=== PATIENT | female | born 1945 | race Caucasian/White ===

== ENCOUNTER 2020-06-30 12:42 | Inpatient (IN) ==
[2020-06-30] MEDS ORDERED: AMPICILLIN/SULBACTAM SOD 3,000 MG in 0.9 % SODIUM CHLORIDE 100 ML IV STA (13:21)
[2020-06-30] MEDS ORDERED: MoRPHine SULFATE 4 MG/ML 1 ML CARP\\VIAL IV PRN (13:21)
[2020-06-30] MEDS ORDERED: ONDANSETRON INJ 2 MG/ML 2 ML VIAL IV STA (13:21)
[2020-06-30] MEDS ORDERED: SODIUM CHLORIDE 0.9% 1000ML 1,000 ML IV STA (13:21)
--- NOTE | 2020-06-30 13:37 | Emergency Department Note ---
Impression & Plan Quentin's angina, Acute hyponatremia ED Provider Note NAME: MARIANA SIMMONS AGE: 75 SEX: F : 1945 ARRIVES VIA: Walk-In INFORMANT: Patient, ED PROVIDER(S): Matt Curry DO CHIEF COMPLAINT: Dental pain HPI: The patient is a 75-year-old female who presented to the emergency department for an evaluation of dental pain. The patient noticed for approximately 5 days she had swelling underneath her chin. She initially thought it was dental infection although she notices no specific dental pain. She has trouble opening her mouth. She notices no fever. She has had no nausea or vomiting. She denies having any trauma. She did start on Augmentin as an outpatient which was left over from a previous prescription. She denies having any abdominal pain. She has no headache. She states the pain is moderate to severe especially with trying to open her mouth. She was seen at a clinic and was sent to the emergency department for further evaluation. ROS: See above HPI for pertinent positives & negatives. A total of 10 systems reviewed and were otherwise negative. PAST MEDICAL HISTORY: See Below PAST SURGICAL HISTORY: See Below FAMILY HISTORY: See Below SOCIAL HISTORY: See Below HOME MEDICATIONS: See Below ALLERGIES: See Below VITALS: See Below PHYSICAL EXAMINATION: GENERAL: The patient is awake and alert. The patient is somewhat anxious appearing and appears to be uncomfortable. EYES: The conjunctivae are clear. The pupils are round and reactive. EARS, NOSE, MOUTH AND THROAT: The nose is without any evidence of any deformity. Mucous membranes are dry. Dentition is intact. There is no specific gumline swelling or tenderness. There is tenderness on the floor the mouth under the tongue but the tongue is not protruding. There is significant swelling on the underside of the mandible. The floor of the mouth is indurated. NECK: The neck is nontender and supple. RESPIRATORY: Normal respiratory effort is noted there is no evidence of wheezing rhonchi or rales CARDIOVASCULAR: Regular rate and rhythm noted there no murmurs rubs or gallops normal S1 normal S2. GASTROINTESTINAL: The abdomen is soft. Abdomen is nontender. MUSCULOSKELETAL/EXTREMITIES: There is no evidence of gross deformity full range of motion is noted in the hips and shoulders. SKIN: There is no obvious evidence of any rash. There are no petechiae, pallor or cyanosis noted. NEUROLOGIC: Patient is awake alert and oriented x3. MEDICAL DECISION MAKING: The patient is a 75-year-old female who presented to the emergency department for an evaluation of facial swelling. The patient is swelling in her submandibular region. She was treated with IV fluids IV pain medication as well as IV antibiotics. I discussed the patient's laboratory and radiographic garett dies with her. Ultimately she was found no signs of Quentin's angina on physical exam as well as radiographic studies. I discussed her presentation with the oral maxillofacial surgeon. I also discussed her case with the on-call [facility]. They have agreed to evaluate the patient. There does not appear to be a drainable fluid collection at this time and the patient may do well with just IV antibiotics. She would likely require close monitoring. Triage Nursing notes reviewed. Prior medical records reviewed Vital Signs: reviewed and remarkable for elevated blood pressure Differential diagnosis: Differential diagnosis in this patient could include Ludewig's angina, cellulitis, abscessed tooth, foreign body, developmental abnormality such as thyroglossal duct cyst and other differential diagnoses were considered. ER treatment provided: See below Diagnostics interpreted by me: ECG: none Cardiac Monitoring: An order was placed for continuous cardiac monitoring. The monitor shows a rate of 89 bpm with sinus rhythm. Laboratory studies: As stated above and show below. Imaging studies: See below Consultation(s): 1540: I discussed this case with Dr. Li who is on-call for the [facility] group. He will evaluate the patient in the emergency department. ED COURSE: Procedures: none PDMP:reviewed and no issues Critical Care: I have personally spent greater than 40 minutes of critical care time in the direct management of this patient. This includes bedside care, interpretation of diagnostic studies, and testing, discussion with consultants, patient, and family members, and other required patient management activities. This 40 minutes is in excess of all separately billable procedures. Past Med/Surg History Medical History (Updated 06/30/20 @ 17:19 by Matt Curry DO) Coronary artery disease Depression History of high cholesterol History of hypertension Surgical History History of cholecystectomy History of coronary artery bypass graft History of total hysterectomy Social History (Updated 06/30/20 @ 13:33 by Matt Curry DO) Smoking Status: Current every day smoker Hx Alcohol Use: Yes Preferred Language: Yoruba Feels Safe at Home: Yes Allergies Allergies Allergy/AdvReac Type Severity Reaction Status Date / Time No Known Allergies Allergy Unverified 06/30/20 16:44 Home Meds Home Medications Medication Instructions Recorded Confirmed atorvastatin 80 mg PO DAILY 06/30/20 06/30/20 ezetimibe 10 mg PO DAILY 06/30/20 06/30/20 fluoxetine 40 mg PO DAILY 06/30/20 06/30/20 gabapentin 100 - 200 mg PO HS 06/30/20 06/30/20 hydrochlorothiazide 12.5 mg PO DAILY 06/30/20 06/30/20 isosorbide mononitrate 30 mg PO DAILY 06/30/20 06/30/20 latanoprost 1 drp OPL DAILY 06/30/20 06/30/20 losartan 50 mg PO DAILY 06/30/20 06/30/20 meloxicam 15 mg PO HS 06/30/20 06/30/20 pantoprazole 40 mg PO DAILY 06/30/20 06/30/20 tizanidine 4 mg PO HS 06/30/20 06/30/20 trazodone 50 mg PO HS 06/30/20 06/30/20 vit C,S-Zw-llcgw-lutein-zeaxan 1 tab PO AMHS 06/30/20 06/30/20 [PreserVision AREDS-2] Results & Data (ED) Vital Signs Vital Signs - 24 hr 06/30/20 13:04 06/30/20 16:17 Temperature 36.5 C Temperature Source Temporal Artery Scan Pulse Rate 94 H Pulse Rate [Left] 84 Pulse Rhythm [Left] Regular Pulse Strength [Left] Normal Respiratory Rate 18 16 Respiratory Effort / Characteristics Nasal Congestion Respiratory Depth Normal Blood Pressure 136/70 Blood Pressure [Left Arm] 146/68 H Blood Pressure Mean 92 Blood Pressure Mean [Left Arm] 94 Blood Pressure Position [Left Arm] Lying Pulse Oximetry 95 96 Oxygen Delivery Method Room Air Room Air Sepsis Recent Fever Within 48 Hours No Sepsis New/Unexplained Change in Mental Status N/A Sepsis Action Taken by Nursing No Action Required Home Medications Current Medication List: was personally reviewed by me Laboratory Data Attestation: I reviewed the patient's lab results. Result diagrams: 06/30/20 13:32 06/30/20 13:32 Lab Results 06/30/20 06/30/20 06/30/20 Range/Units 13:32 13:32 13:32 WBC 20.98 H (4.8-10.8) K/uL RBC 4.01 L (4.2-5.4) M/uL Hgb 12.8 (12.0-16.0) g/dL Hct 36.5 L (37-47) % MCV 91.0 (80-100) fL MCH 31.9 (25-34) pg MCHC 35.1 (32-36) g/dL RDW Std Deviation 43.7 (36.4-46.3) fL RDW Coeff of Aster 13.1 (11.5-14.5) % Plt Count 280 (130-400) K/uL MPV 9.7 (7.4-10.4) fL Immature Gran % (Auto) 0.3 % Neut % (Auto) 87.2 % Lymph % (Auto) 4.0 % Desha % (Auto) 8.3 % Eos % (Auto) 0.1 % Baso % (Auto) 0.1 % Neut # (Auto) 18.29 H (1.4-6.5) K/uL Lymph # (Auto) 0.84 L (1.2-3.4) K/uL Desha # (Auto) 1.75 H (0.11-0.59) K/uL Eos # (Auto) 0.02 (0-0.5) K/uL Baso # (Auto) 0.02 (0-0.2) K/uL Immature Gran # (Auto) 0.06 H (0.00-0.02) K/uL ESR 77 H (0-30) mm/hr Sodium 126 L (136-145) mmol/L Potassium 3.2 L (3.5-5.1) mmol/L Chloride 95 L (98-107) mmol/L Carbon Dioxide 24 (21-32) mmol/L Anion Gap 7.0 (3-11) BUN 15 (7-18) mg/dl Creatinine 0.87 (0.6-1.2) mg/dl Est Cr Clr Drug Dosing 44.2 ml/min Est GFR ( Amer) 75.5 ml/min Est GFR (Non-Af Amer) 65.2 ml/min BUN/Creatinine Ratio 16.8 (10-20) Glucose 107 H (70-99) mg/dl Calcium 8.3 L (8.5-10.1) mg/dl Total Bilirubin 0.5 (0.2-1) mg/dl AST 22 (15-37) U/L ALT 19 (12-78) U/L Alkaline Phosphatase 143 H (45-117) U/L C-Reactive Protein 21.50 H (0-0.29) mg/dl Total Protein 7.4 (6.4-8.2) gm/dl Albumin 3.2 L (3.4-5.0) gm/dl Globulin 4.2 H (2.5-4.0) gm/dl Albumin/Globulin Ratio 0.8 L (0.9-2) Procalcitonin (0-0.5) ng/ml COVID-19 Eval Order SARS-CoV-2 (PCR) (Negative) 06/30/20 06/30/20 06/30/20 Range/Units 13:32 13:35 13:35 WBC (4.8-10.8) K/uL RBC (4.2-5.4) M/uL Hgb (12.0-16.0) g/dL Hct (37-47) % MCV (80-100) fL MCH (25-34) pg MCHC (32-36) g/dL RDW Std Deviation (36.4-46.3) fL RDW Coeff of Aster (11.5-14.5) % Plt Count (130-400) K/uL MPV (7.4-10.4) fL Immature Gran % (Auto) % Neut % (Auto) % Lymph % (Auto) % Desha % (Auto) % Eos % (Auto) % Baso % (Auto) % Neut # (Auto) (1.4-6.5) K/uL Lymph # (Auto) (1.2-3.4) K/uL Desha # (Auto) (0.11-0.59) K/uL Eos # (Auto) (0-0.5) K/uL Baso # (Auto) (0-0.2) K/uL Immature Gran # (Auto) (0.00-0.02) K/uL ESR (0-30) mm/hr Sodium (136-145) mmol/L Potassium (3.5-5.1) mmol/L Chloride (98-107) mmol/L Carbon Dioxide (21-32) mmol/L Anion Gap (3-11) BUN (7-18) mg/dl Creatinine (0.6-1.2) mg/dl Est Cr Clr Drug Dosing ml/min Est GFR ( Amer) ml/min Est GFR (Non-Af Amer) ml/min BUN/Creatinine Ratio (10-20) Glucose (70-99) mg/dl Calcium (8.5-10.1) mg/dl Total Bilirubin (0.2-1) mg/dl AST (15-37) U/L ALT (12-78) U/L Alkaline Phosphatase (45-117) U/L C-Reactive Protein (0-0.29) mg/dl Total Protein (6.4-8.2) gm/dl Albumin (3.4-5.0) gm/dl Globulin (2.5-4.0) gm/dl Albumin/Globulin Ratio (0.9-2) Procalcitonin 0.32 (0-0.5) ng/ml COVID-19 Eval Order Covid19 at [facility] SARS-CoV-2 (PCR) NEGATIVE (Negative) Administered Medications Sodium Chloride (Nss 1000ml) 1,000 mls @ 125 mls/hr IV .Q8H STA Stop: 06/30/20 21:20 Last Admin: 06/30/20 13:43 Dose: 125 mls/hr Documented by: [id number] Morphine Sulfate (Morphine Sulfate 4 Mg/Ml 1 Ml Carp\Vial) 4 mg IV Q15M PRN PRN Reason: Pain Stop: 07/14/20 13:20 Last Admin: 06/30/20 13:45 Dose: 4 mg Documented by: [id number] Discontinued Medications Al Hydrox/Mg Hydrox/Simethicone (Aluminum/Magnesium Susp 30 Ml Udc) 30 ml PO NOW STA Stop: 06/30/20 16:07 Last Admin: 06/30/20 16:28 Dose: 30 ml Documented by: [id number] Ampicillin Sodium/Sulbactam Sodium 3,000 mg/ Sodium Chloride 108 mls @ 200 mls/hr IV NOW STA; Protocol Stop: 06/30/20 13:53 Last Infusion: 06/30/20 14:28 Dose: 0 mls/hr Documented by: [id number] Admin: 06/30/20 13:45 Dose: 200 mls/hr Documented by: [id number] Famotidine (Pepcid 20mg Iv Push) 20 mg in 5 mls @ 2.5 mls/min IV NOW STA Stop: 06/30/20 16:07 Last Admin: 06/30/20 16:28 Dose: 2.5 mls/min Documented by: [id number] Ioversol (Optiray 320 100ml) 90 ml IV ONCE ONE Stop: 06/30/20 14:51 Last Admin: 06/30/20 14:50 Dose: 90 ml Documented by: [id number] Ondansetron HCl (Ondansetron Inj 2 Mg/Ml 2 Ml Vial) 4 mg IV NOW STA Stop: 06/30/20 13:22 Last Admin: 06/30/20 13:44 Dose: 4 mg Documented by: [id number] Imaging Data Radiologist's Impression: Soft Tissue Neck CT 06/30/20 13:21 CT SCAN OF THE NECK WITH IV CONTRAST CLINICAL HISTORY: Swelling at the floor of the mouth. Dysphagia. COMPARISON STUDY: No priors. TECHNIQUE: Following the IV administration of 90 cc of Optiray 320, CT scan of the soft tissues of the neck was performed from the skull base to the upper chest. Images are reviewed in the axial, sagittal, and coronal planes. IV contrast was administered without complication. A dose lowering technique was utilized adhering to the principles of ALARA. CT DOSE: 333.74 mGycm FINDINGS: Pharynx: There is marked edema and inflammation of the sublingual and submandibular soft tissues, right greater than left. There are dilated submandibular ducts with surrounding hyperemia versus multiloculated fluid collection(s) in the submandibular/sublingual space. This is located deep to the mandible and extends inferiorly to level of the hyoid. The submandibular glands also appear heterogeneous and hyperemic. The distal submandibular ducts are not visualized due to significant streak artifact from dental amalgam. The dilated ducts versus loculated fluid collection at this site measures approximately 4 x 5 x 3 cm in aggregate dimension. There is infiltration throughout the right para pharyngeal soft tissues, and this causes significant edema/mass effect on the floor of mouth with minimal mass effect on the anterior aspect of the adjacent airway. There is no significant airway compromise. There is no evidence of mass lesion. The vocal cords are symmetric. The left-sided parapharyngeal fat is maintained. The prevertebral/retropharyngeal soft tissues are within normal limits. The epiglottis is normal. Lymphadenopathy: Mildly enlarged and hyperemic right cervical chain lymph nodes measure up to 1.2 x 1.2 cm. These are likely reactive. Thyroid: The thyroid gland is enlarged and markedly heterogeneous. The left lobe extends into the posterior mediastinum. Low-attenuation nodules measure up to 1.9 cm. Salivary glands: The parotid glands are within normal limits. The submandibular glands appear heterogeneous and hyperemic. See above. Brain parenchyma: The visualized brain parenchyma at the skull base is normal in appearance. Vascular structures: There is advanced atherosclerotic calcification of the thoracic aorta. 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 The carotid arteries and jugular veins are patent. There is at least mild stenosis of the left internal carotid artery. Skeletal structures: The skeletal structures are osteopenic. Imaged portions of the calvarium at the skull base are within normal limits. The cervical spine appears intact noting multilevel spondylosis. Posterior fusion hardware is seen throughout the cervical spine. No lytic or blastic lesion is seen. Sinuses and mastoids: Trace mucosal thickening is noted in the sphenoid sinuses. The mastoid air cells are well pneumatized. Upper chest: The patient is status post midline sternotomy. Advanced emphysematous change is seen in the upper lobes. No airspace consolidation or pleural effusion is identified. IMPRESSION: 1. There is a marked inflammatory process involving the floor of the mouth, as well as the sublingual and submental soft tissues as detailed above. The degree of inflammation indicates infection, and Quentin's angina is the diagnosis of exclusion. 2. There are dilated submandibular ducts versus a multiloculated fluid collection in the submandibular/sublingual space. This could be related to obstruction of the submandibular ducts with associated sialoadenitis; however, the distal ducts cannot be evaluated due to extensive streak artifact from dental amalgam. The presence of an obstructing stone or lesion cannot be evaluated. ENT assessment and correlation with direct visualization is recommended. Alternatively, this could potentially represent an abscess or an infected ranula. 3. There are mildly enlarged and hyperemic right semitubular lymph nodes. 4. The jugular veins are patent. 5. Multinodular thyroid goiter. 6. Emphysema. 7. Additional findings as above. ACT 112: Negative or not required by law. Electronically signed by: Jagdish Pham M.D. 06/30/2020 3:13 PM Discharge Plan Visit Data Chief Complaint: Facial Injury/Pain Stated Complaint: FACIAL PAIN ED Provider: Matt Curry Discharge Problem: Quentin's angina, Acute hyponatremia Patient Disposition: Admitted As Inpatient Condition: Good Forms Stand Alone Forms: My [facility] Prescriptions Prescriptions: No Action losartan 50 mg Tablet 50 mg PO DAILY RF: 0 fluoxetine 40 mg Capsule 40 mg PO DAILY RF: 0 atorvastatin 80 mg Tablet 80 mg PO DAILY RF: 0 tizanidine 4 mg Tablet 4 mg PO HS RF: 0 isosorbide mononitrate 30 mg Tablet Extended Release 24 Hr 30 mg PO DAILY RF: 0 pantoprazole 40 mg Tablet,Delayed Release (Dr/Ec) 40 mg PO DAILY RF: 0 latanoprost 0.005 % Drops 1 drp OPL DAILY RF: 0 trazodone 50 mg Tablet 50 mg PO HS RF: 0 meloxicam 15 mg Tablet 15 mg PO HS RF: 0 hydrochlorothiazide 12.5 mg Capsule 12.5 mg PO DAILY RF: 0 gabapentin 100 mg Capsule 100 - 200 mg PO HS RF: 0 ezetimibe 10 mg Tablet 10 mg PO DAILY RF: 0 PreserVision AREDS-2 250-90-40-1 mg Capsule 1 tab PO AMHS RF: 0 Referrals Referrals: PCP,NO [Primary Care Provider] -
[2020-06-30 13:46] LABS: Basophils # (auto) 0.02 K/uL (0-0.2); Basophils % (auto) 0.1 %; Eosinophils # (auto) 0.02 K/uL (0-0.5); Eosinophils % (auto) 0.1 %; Hematocrit (blood only) 36.5 % (37-47); Hemoglobin 12.8 g/dL (12.0-16.0); Immature Granulocytes # (auto) 0.06 K/uL (0.00-0.02); Immature Granulocytes % (auto) 0.3 %; Lymphocytes # (auto) 0.84 K/uL (1.2-3.4); Mean Corpuscular Hemoglobin 31.9 pg (25-34); Mean Corpuscular Hgb Conc 35.1 g/dL (32-36); Mean Platelet Volume 9.7 fL (7.4-10.4); Monocytes # (auto) 1.75 K/uL (0.11-0.59); Monocytes % (auto) 8.3 %; Neutrophils # (auto) 18.29 K/uL (1.4-6.5); Neutrophils % (auto) 87.2 %; Platelet Count 280 K/uL (130-400); RDW Coefficient of Variation 13.1 % (11.5-14.5); RDW Standard Deviation 43.7 fL (36.4-46.3); Red Blood Count 4.01 M/uL (4.2-5.4); White Blood Count 20.98 K/uL (4.8-10.8)
[2020-06-30 14:07] LABS: Albumin Level 3.2 gm/dl (3.4-5.0); BUN Creatinine Ratio 16.8 (10-20); Calcium 8.3 mg/dl (8.5-10.1); Creatinine Clr Calc Pharmacy 44.2 ml/min; Est GFR (African American) 75.5 ml/min; Est GFR (Non-African American) 65.2 ml/min; Potassium 3.2 mmol/L (3.5-5.1)
[2020-06-30 14:14] LABS: Albumin Globulin Ratio 0.8 (0.9-2); Bilirubin,Total 0.5 mg/dl (0.2-1); C Reactive Protein 21.5 mg/dl (0-0.29); Globulin 4.2 gm/dl (2.5-4.0); Total Protein 7.4 gm/dl (6.4-8.2)
[2020-06-30] MEDS ORDERED: OPTIRAY 320 100ml IV ONE (14:50)
--- NOTE | 2020-06-30 15:15 | CT Scan Report ---
CT SCAN OF THE NECK WITH IV CONTRAST CLINICAL HISTORY: Swelling at the floor of the mouth. Dysphagia. COMPARISON STUDY: No priors. TECHNIQUE: Following the IV administration of 90 cc of Optiray 320, CT scan of the soft tissues of e neck was performed from the skull base to the upper chest. Images are reviewed in the axial, sagitt al, and coronal planes. IV contrast was administered without complication. A dose lowering techniqu e was utilized adhering to the principles of ALARA. CT DOSE: 333.74 mGycm FINDINGS: Pharynx: There is marked edema and inflammation of the sublingual and submandibular soft tissues, rig ht greater than left. There are dilated submandibular ducts with surrounding hyperemia versus multilo culated fluid collection(s) in the submandibular/sublingual space. This is located deep to the mandib le and extends inferiorly to level of the hyoid. The submandibular glands also appear heterogeneous a nd hyperemic. The distal submandibular ducts are not visualized due to significant streak artifact fr om dental amalgam. The dilated ducts versus loculated fluid collection at this site measures approxim ately 4 x 5 x 3 cm in aggregate dimension. There is infiltration throughout the right parapharyngeal soft tissues, and this causes significant edema/mass effect on the floor of mouth with minimal mass e ffect on the anterior aspect of the adjacent airway. There is no significant airway compromise. There is no evidence of mass lesion. The vocal cords are symmetric. The left-sided parapharyngeal fat is m aintained. The prevertebral/retropharyngeal soft tissues are within normal limits. The epiglottis is normal. Lymphadenopathy: Mildly enlarged and hyperemic right cervical chain lymph nodes measure up to 1.2 x 1 .2 cm. These are likely reactive. Thyroid: The thyroid gland is enlarged and markedly heterogeneous. The left lobe extends into the pos terior mediastinum. Low-attenuation nodules measure up to 1.9 cm. Salivary glands: The parotid glands are within normal limits. The submandibular glands appear heterog eneous and hyperemic. See above. Brain parenchyma: The visualized brain parenchyma at the skull base is normal in appearance. Vascular structures: There is advanced atherosclerotic calcification of the thoracic aorta. 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 The carotid arteries and jugular veins are pat ent. There is at least mild stenosis of the left internal carotid artery. Skeletal structures: The skeletal structures are osteopenic. Imaged portions of the calvarium at the skull base are within normal limits. The cervical spine appears intact noting multilevel spondylosis. Posterior fusion hardware is seen throughout the cervical spine. No lytic or blastic lesion is seen. Sinuses and mastoids: Trace mucosal thickening is noted in the sphenoid sinuses. The mastoid air cell s are well pneumatized. Upper chest: The patient is status post midline sternotomy. Advanced emphysematous change is seen in the upper lobes. No airspace consolidation or pleural effusion is identified. IMPRESSION: 1. There is a marked inflammatory process involving the floor of the mouth, as well as the sublingual and submental soft tissues as detailed above. The degree of inflammation indicates infection, and Jo dwig's angina is the diagnosis of exclusion. 2. There are dilated submandibular ducts versus a multiloculated fluid collection in the submandibula r/sublingual space. This could be related to obstruction of the submandibular ducts with associated s ialoadenitis; however, the distal ducts cannot be evaluated due to extensive streak artifact from den masood amalgam. The presence of an obstructing stone or lesion cannot be evaluated. ENT assessment and c orrelation with direct visualization is recommended. Alternatively, this could potentially represent an abscess or an infected ranula. 3. There are mildly enlarged and hyperemic right semitubular lymph nodes. 4. The jugular veins are patent. 5. Multinodular thyroid goiter. 6. Emphysema. 7. Additional findings as above. ACT 112: Negative or not required by law. Electronically signed by: Jagdish Pham M.D. 06/30/2020 3:13 PM
[2020-06-30] MEDS ORDERED: FAMOTIDINE 20MG IV PUSH 20 MG/5 ML SYR IV STA (16:06)
[2020-06-30] MEDS ORDERED: ALUMINUM/MAGNESIUM SUSP 30 ML UDC PO STA (16:06)
--- NOTE | 2020-06-30 16:09 | History & Physical Report ---
Date of Service June 30, 2020 Assessment & Plan (1) Facial swelling: CT reviewed, consider CL adenitis, facial cellulitis, or Pretty's angina Admit patient to a monitored bed Patient was given a dose of Unasyn in ER, will continue this for now Blood cultures Pain control with low-dose Dilaudid ER physician to speak to oral maxillofacial surgery, consider ENT consultation as well depending on their input Patient feels she may be able to handle clear liquids, will try this only for now. Gentle IV hydration (2) History of high cholesterol: Patient is on no medications, this is noted in her history. We will check fasting lipids (3) History of hypertension: Blood pressure 136/70, continue to monitor. Reevaluate once acute issues have resolved. History of Present Illness Chief Complaint: R face pain/swelling Primary Care Provider: NO PCP This is a 75-year-old female with past medical history of hypertension hypercholesterolemia that presents today complaining of right dental pain. Patient is pleasant but has some difficulty speaking secondary to her pain. Per records, patient has been having slowly worsening pain for the past 5 days. This is mostly in her right jaw with some radiation into her right cheek. She has had no fevers or chills and she has had no nausea vomiting. She has had some difficulty taking in solid food since it hurts to chew. She denies any trauma. Patient was seen at an outside clinic and recommended she come here for further evaluation. At the time my evaluation, patient appears to be in some discomfort, hurts worse when she is trying to open her mouth. She is able to answer questions. As she does have obvious facial swelling, especially on the right. Past Med/Surg History Medical History Coronary artery disease Depression History of high cholesterol History of hypertension Surgical History History of cholecystectomy History of coronary artery bypass graft History of total hysterectomy Social History (Updated 06/30/20 @ 13:33 by Matt Curry DO) Smoking Status: Current every day smoker Hx Alcohol Use: Yes Preferred Language: Niuean Feels Safe at Home: Yes Review of Systems Constitutional: no fever, no chills, no body aches and no fatigue Eyes: as per Subjective / HPI Ear, Nose, Mouth, Throat: + dental pain, + dental abscess and + dental caps; no loose teeth, no bleeding gums and no sore throat Respiratory: no cough, no chest congestion, no dyspnea, no dyspnea on exertion, no pain on inspiration, no pain with cough and no stopping breathing during sleep Cardiovascular: no chest pain, no chest pain at rest, no radiating jaw, neck or arm pain, no dyspnea, no dyspnea on exertion, no orthopnea, no palpitations and no lightheadedness Gastrointestinal: no abdominal pain, no nausea, no vomiting, no change in bowel habits, no constipation, no diarrhea/loose stools and no melena Genitourinary: no dysuria, no difficulty urinating, no urinary frequency, no urinary hesitancy and no urinary urgency Musculoskeletal: + neck pain; no back pain, no joint pain, no stiffness and no muscle weakness Integumentary: no rash and no lesions Neurologic: as per Subjective / HPI Psychiatric: as per Subjective / HPI Endocrine: as per Subjective / HPI Physical Exam Constitutional: cooperative; + uncomfortable (due to jaw pain) ENMT: Mouth: + restricted motion of mouth and + dentition abnormality; no drooling Respiratory: normal respiratory effort, lungs clear to auscultation Cardiovascular: RRR, no murmur, no edema Vessels: no JVD and no carotid bruit Gastrointestinal (Abdomen): normal bowel sounds, soft, nontender, no hepatosplenomegaly Musculoskeletal: no cyanosis or clubbing, extremities motor strength 5/5 Skin: no rashes, warm and dry Neurologic: PERRL, EOMI, accommodation nl, no face palsy, no dysarthria Results & Data Results & Data ([facility]) Vital Signs (Past 12 Hours) Vital Signs Temp Pulse Resp BP Pulse Ox 06/30/20 13:04 36.5 C 94 H 18 136/[address] SCAN OF THE NECK WITH IV CONTRAST CLINICAL HISTORY: Swelling at the floor of the mouth. Dysphagia. COMPARISON STUDY: No priors. TECHNIQUE: Following the IV administration of 90 cc of Optiray 320, CT scan of the soft tissues of the neck was performed from the skull base to the upper chest. Images are reviewed in the axial, sagittal, and coronal planes. IV contrast was administered without complication. A dose lowering technique was utilized adhering to the principles of ALARA. CT DOSE: 333.74 mGycm FINDINGS: Pharynx: There is marked edema and inflammation of the sublingual and submandibular soft tissues, right greater than left. There are dilated submandibular ducts with surrounding hyperemia versus multiloculated fluid collection(s) in the submandibular/sublingual space. This is located deep to the mandible and extends inferiorly to level of the hyoid. The submandibular glands also appear heterogeneous and hyperemic. The distal submandibular ducts are not visualized due to significant streak artifact from dental amalgam. The dilated ducts versus loculated fluid collection at this site measures approximately 4 x 5 x 3 cm in aggregate dimension. There is infiltration throughout the right parapharyngeal soft tissues, and this causes significant edema/mass effect on the floor of mouth with minimal mass effect on the anterior aspect of the adjacent airway. There is no significant airway compromise. There is no evidence of mass lesion. The vocal cords are symmetric. The left-sided parapharyngeal fat is maintained. The prevertebral/retropharyngeal soft tissues are within normal limits. The epiglottis is normal. Lymphadenopathy: Mildly enlarged and hyperemic right cervical chain lymph nodes measure up to 1.2 x 1.2 cm. These are likely reactive. Thyroid: The thyroid gland is enlarged and markedly heterogeneous. The left lobe extends into the posterior mediastinum. Low-attenuation nodules measure up to 1.9 cm. Salivary glands: The parotid glands are within normal limits. The submandibular glands appear heterogeneous and hyperemic. See above. Brain parenchyma: The visualized brain parenchyma at the skull base is normal in appearance. Vascular structures: There is advanced atherosclerotic calcification of the thoracic aorta. 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 The carotid arteries and jugular veins are patent. There is at least mild stenosis of the left internal carotid artery. Skeletal structures: The skeletal structures are osteopenic. Imaged portions of the calvarium at the skull base are within normal limits. The cervical spine appears intact noting multilevel spondylosis. Posterior fusion hardware is seen throughout the cervical spine. No lytic or blastic lesion is seen. Sinuses and mastoids: Trace mucosal thickening is noted in the sphenoid sinuses. The mastoid air cells are well pneumatized. Upper chest: The patient is status post midline sternotomy. Advanced emphysematous change is seen in the upper lobes. No airspace consolidation or pleural effusion is identified. IMPRESSION: 1. There is a marked inflammatory process involving the floor of the mouth, as well as the sublingual and submental soft tissues as detailed above. The degree of inflammation indicates infection, and Quentin's angina is the diagnosis of exclusion. 2. There are dilated submandibular ducts versus a multiloculated fluid collec tion in the submandibular/sublingual space. This could be related to obstruction of the submandibular ducts with associated sialoadenitis; however, the distal ducts cannot be evaluated due to extensive streak artifact from dental amalgam. The presence of an obstructing stone or lesion cannot be evaluated. ENT assessment and correlation with direct visualization is recommended. Alternatively, this could potentially represent an abscess or an infected ranula. 3. There are mildly enlarged and hyperemic right semitubular lymph nodes. 4. The jugular veins are patent. 5. Multinodular thyroid goiter. 6. Emphysema. 7. Additional findings as above. PG Care Time/CCT Total # of Minutes Spent Total Time Spent with Patient: Total time spent is greater than 50% in coordination of care (as documented) at patient's floor/unit and/or counseling patient: Coding Level of Care Code 53005 Initial Inpt Care Lvl 3 Diagnoses Facial swelling R22.0 History of high cholesterol Z86.39 History of hypertension Z86.79
[2020-06-30] MEDS ORDERED: ONDANSETRON INJ 2 MG/ML 2 ML VIAL IV PRN (19:09)
[2020-06-30] MEDS: HYDROmorphone INJ 0.5 MG/0.5 ML SYR IV PRN (19:36)
[2020-06-30] MEDS: SODIUM CHLORIDE 0.9% 1000ML 1,000 ML IV SCH (20:18)
[2020-06-30] MEDS: AMPICILLIN/SULBACTAM SOD 3,000 MG in 0.9 % SODIUM CHLORIDE 100 ML IV SCH (20:19)
[2020-06-30] MEDS: tiZANidine HCL 4 MG TABLET PO SCH (20:48)
[2020-06-30] MEDS: GABAPENTIN 100 MG CAP PO SCH (20:48)
[2020-06-30] MEDS: traZODone HCL 50 MG TAB PO SCH (20:48)
[2020-06-30] MEDS ORDERED: ENOXAPARIN INJ 40 MG/0.4 ML SYR SQ SCH (21:00)
[2020-06-30] MEDS ORDERED: MELOXICAM 7.5 MG TAB PO SCH (21:00)
[2020-06-30] MEDS: ZOLPIDEM TARTRATE 5 MG TAB PO PRN (21:21)
[2020-07-01] MEDS: AMPICILLIN/SULBACTAM SOD 3,000 MG in 0.9 % SODIUM CHLORIDE 100 ML IV SCH ×4 (02:19→20:51)
[2020-07-01] MEDS: ACETAMINOPHEN 325 MG TAB PO PRN ×2 (03:23→14:19)
[2020-07-01 06:45] LABS: Basophils # (auto) 0.02 K/uL (0-0.2); Basophils % (auto) 0.2 %; Eosinophils # (auto) 0.13 K/uL (0-0.5); Eosinophils % (auto) 1.1 %; Hematocrit (blood only) 32.2 % (37-47); Immature Granulocytes # (auto) 0.03 K/uL (0.00-0.02); Immature Granulocytes % (auto) 0.2 %; Lymphocytes # (auto) 0.45 K/uL (1.2-3.4); Lymphocytes % (auto) 3.7 %; Mean Corpuscular Hgb Conc 34.2 g/dL (32-36); Mean Corpuscular Volume 90.7 fL (80-100); Mean Platelet Volume 9.6 fL (7.4-10.4); Monocytes # (auto) 1.18 K/uL (0.11-0.59); Monocytes % (auto) 9.7 %; Neutrophils # (auto) 10.32 K/uL (1.4-6.5); Neutrophils % (auto) 85.1 %; Platelet Count 255 K/uL (130-400); RDW Coefficient of Variation 13.2 % (11.5-14.5); RDW Standard Deviation 44.3 fL (36.4-46.3); Red Blood Count 3.55 M/uL (4.2-5.4); White Blood Count 12.13 K/uL (4.8-10.8)
[2020-07-01 07:22] LABS: Calcium 6.7 mg/dl (8.5-10.1); Creatinine Clr Calc Pharmacy 63.4 ml/min; Est GFR (African American) 102.2 ml/min; Est GFR (Non-African American) 88.2 ml/min; Magnesium 2.6 mg/dl (1.8-2.4); Potassium 3.5 mmol/L (3.5-5.1)
[2020-07-01] MEDS ORDERED: CALCIUM GLUCONATE 10% 2,000 MG in SODIUM CHLORIDE 0.9% 50 ML IV ONE (08:30)
[2020-07-01] MEDS: SODIUM CHLORIDE 0.9% 1000ML 1,000 ML IV SCH ×2 (08:38→17:20)
[2020-07-01] MEDS: CEROVITE ADV FORMULA TAB PO SCH (08:40)
[2020-07-01] MEDS: ATORVASTATIN 40 MG TAB PO SCH (08:40)
[2020-07-01] MEDS: EZETIMIBE 10 MG TABLET PO SCH (08:41)
[2020-07-01] MEDS: PANTOprazole 40 MG TAB PO SCH (08:41)
[2020-07-01] MEDS: FLUoxetine HCL 20 MG CAP PO SCH (08:41)
[2020-07-01] MEDS: LATANOPROST 0.005% OP SOLN 2.5 ML BTL OPL SCH (08:43)
--- NOTE | 2020-07-01 08:43 | Oral/Maxillofacial Consult ---
Date of Consultation July 01, 2020 History of Present Illness Attending Physician: Nikolai Cisse MD Oral Maxillofacial Surgery Exam for acute facial swelling Present Complaint: I have pain/swelling/drainage from my infected lower right tooth which started on June 27 only to get worse Now submandibular and submental swelling with floor of mouth swelling and drainage from posterior of tooth # 31. Symptoms have been ongoing from June 27, 2020 Oral Exam: Finding--Swollen and tender gingival tissue with deep pocket formation.Trismus and elevation of the tongue, swelling of the floor of her mouth, submental area and submandibular area Imaging: CT scan I reviewed the CT personally Infection present submental and floor of the mouth Looks to carious tooth # 31 as the cause of this issue Soft tissue: swelling ---floor of the mouth, tongue, No involvement of the--- hard/soft palate, posterior pharyngeal area all with in normal limits, Oral Care: Overall oral care is good Occlusion: Class I TMJ exam: Limited opening due to current infection Periodontal exam: Overall ---Healthy gingival tissue without evidence of periodontal pathology Lower right side is swollen with subperiosteal swelling Head/Neck exam: Neck is swollen/ submental . Able to extend and flex neck w/o difficulty, no masses, no abnormalities, no airway issues, no evidence of sleep apnea. Treatment Plan: Set up with general anesthesia in hospital due to complexity of the procedure for I&D and extraction of tooth as needed. I reviewed the treatment plan and consent with the patient . Understanding was expressed. Time was given for questions regarding the surgery, risks and post op care. Discussed alternative to treatment--procedure as planned, Do not do surgery Discussed that the lower right dental bridge may need to be removed if # 31 is attached to the bridge and we can not section tooth # 31 Risks discussed: Pain,swelling,infection, dry socket, delayed healing, nerve injury to face,lips,tongue,chin area which could be permanent (rare). TMJ, jaw stiffness, change in bite (rare), ear pain (referred). Sinus problems like fistula or infection. Need to leave a small root fragment in place to avoid injury to nerve or sinus. Relationship of wisdom teeth to nerve/sinus and risk of jaw fracture. Home care reviewed: tooth brushing, rinsing, follow up care with Dr Díaz. diet=[id number]-[id number] dental. Discussed activity level, driving/work while on Rx pain Meds. Surgery to be set up today she is NPO Discussed the case with Dr Cami Cisse Allergies Allergy/AdvReac Type Severity Reaction Status Date / Time No Known Allergies Allergy Unverified 06/30/20 16:44 Home Medications Medication Instructions Recorded Confirmed Type atorvastatin 80 mg PO DAILY 06/30/20 06/30/20 History ezetimibe 10 mg PO DAILY 06/30/20 06/30/20 History fluoxetine 40 mg PO DAILY 06/30/20 06/30/20 History gabapentin 100 - 200 mg PO HS 06/30/20 06/30/20 History hydrochlorothiazide 12.5 mg PO DAILY 06/30/20 06/30/20 History isosorbide mononitrate 30 mg PO DAILY 06/30/20 06/30/20 History latanoprost 1 drp OPL DAILY 06/30/20 06/30/20 History losartan 50 mg PO DAILY 06/30/20 06/30/20 History meloxicam 15 mg PO HS 06/30/20 06/30/20 History pantoprazole 40 mg PO DAILY 06/30/20 06/30/20 History tizanidine 4 mg PO HS 06/30/20 06/30/20 History trazodone 50 mg PO HS 06/30/20 06/30/20 History vit C,W-Qg-xtmje-lutein-zeaxan 1 tab PO AMHS 06/30/20 06/30/20 History [PreserVision AREDS-2] Patient History Medical History (Updated 06/30/20 @ 17:19 by Matt Curry DO) Coronary artery disease Depression History of high cholesterol History of hypertension Surgical History History of cholecystectomy History of coronary artery bypass graft History of total hysterectomy Social History (Updated 06/30/20 @ 13:33 by Matt Curry DO) Smoking Status: Current every day smoker Cigarettes Per Day: 10; Second Hand Exposure: No; Do You Dip or Chew Tobacco: No; Tobacco Cessation Education Requested by Patient: No (Pt. doesn't want to quit) Hx Alcohol Use: Yes Alcohol type: wine Hx Substance Use: No Preferred Language: Cymro Communication Ability: Effective Pomologist Required: No Beliefs That Will Affect Care: None Current Living Situation: Alone Current Living Situation Comment: will be living alone but close to daughter Other Information That Helps Us Care for You: No Feels Safe at Home: Yes Assistive Devices: Cane Assistive Devices Comment: pt. uses cane due to left hip bursistis Results & Data ([facility]) Vital Signs (Past 12 Hours) Vital Signs Temp Pulse Pulse Pulse Resp BP Pulse Ox 07/01/20 08:04 36.9 C 87 18 137/74 94 07/01/20 03:15 38.1 C H 95 H 18 130/72 94 06/30/20 23:54 73 06/30/20 23:39 37.1 C 83 18 129/57 L 97 PG Care Time/CCT Total # of Minutes Spent Total Time Spent with Patient: Total time spent is greater than 50% in coordination of care (as documented) at patient's floor/unit and/or counseling patient: Coding Level of Care Code 35958 Initial Inpt Care Lvl 3
[2020-07-01] MEDS ORDERED: hydroCHLOROthiazide 25 MG TAB PO SCH (09:00)
[2020-07-01] MEDS ORDERED: LOSARTAN POTASSIUM 50 MG TAB PO SCH (09:00)
[2020-07-01] MEDS ORDERED: ISOSORBIDE MONO EXTENDED REL 30 MG TABCR PO SCH (09:00)
--- NOTE | 2020-07-01 10:50 | Anesthesiology Consultation ---
Date of Service July 01, 2020 Assessment & Plan (1) Encounter for pre-operative examination: Chart Review Chart Review: Acceptable Risk for Surgery and Patient NOT seen in Pre Admission Testing Consults Requested none ASA [id number] Proposed Anesthesia Anesthesia Type: General Risk / Benefits Reviewed With: PT / POA / Parent / Guardian, Accepts Plan and In formed Consent Obtained Additional Comments: covid test negative History Surgery Operation Date: 07/01/20 08:50 Proposed Procedures p Neck Drainage - Carson Díaz DMD s Tooth Extraction #31 - Carson Díaz DMD Height/Weight Height: 5 ft 2.5 in Weight: 56.3 kg Allergies Allergy/AdvReac Type Severity Reaction Status Date / Time No Known Allergies Allergy Unverified 06/30/20 16:44 Medications Home Medications Medication Instructions Recorded Confirmed Last Taken atorvastatin 80 mg PO DAILY 06/30/20 06/30/20 06/29/20 ezetimibe 10 mg PO DAILY 06/30/20 06/30/20 06/30/20 fluoxetine 40 mg PO DAILY 06/30/20 06/30/20 06/30/20 gabapentin 100 - 200 mg PO HS 06/30/20 06/30/20 06/29/20 hydrochlorothiazide 12.5 mg PO DAILY 06/30/20 06/30/20 06/30/20 isosorbide mononitrate 30 mg PO DAILY 06/30/20 06/30/20 06/30/20 latanoprost 1 drp OPL DAILY 06/30/20 06/30/20 Unknown losartan 50 mg PO DAILY 06/30/20 06/30/20 06/30/20 meloxicam 15 mg PO 06/30/20 06/30/20 06/29/20 pantoprazole 40 mg PO DAILY 06/30/20 06/30/20 06/30/20 tizanidine 4 mg PO HS 06/30/20 06/30/20 06/29/20 trazodone 50 mg PO 06/30/20 06/30/20 06/29/20 vit C,W-Se-eoigx-lutein-zeaxan 1 tab PO AMHS 06/30/20 06/30/20 06/30/20 [PreserVision AREDS-2] Active Medications Generic Name Dose Route Start Last Admin Trade Name Freq PRN Reason Stop Dose Admin Acetaminophen 650 mg 06/30/20 19:09 07/01/20 14:19 Acetaminophen 325 Mg Tab PO 07/30/20 19:08 650 mg Q4H PRN Administration Pain or Fever Atorvastatin Calcium 80 mg 07/01/20 09:00 07/01/20 08:40 Atorvastatin 40 Mg Tab PO 07/31/20 08:59 80 mg DAILY SHELDON Administration Ezetimibe 10 mg 07/01/20 09:00 07/01/20 08:41 Ezetimibe 10 Mg Tablet PO 07/31/20 08:59 10 mg DAILY SHELDON Administration Fluoxetine HCl 40 mg 07/01/20 09:00 07/01/20 08:41 Fluoxetine Hcl 20 Mg Cap PO 07/31/20 08:59 40 mg DAILY SHELDON Administration Gabapentin 100 mg 06/30/20 21:00 06/30/20 20:48 Gabapentin 100 Mg Cap PO 07/30/20 20:59 100 mg HS SHELDON Administration Hydromorphone HCl 0.5 mg 06/30/20 19:09 07/01/20 18:45 Hydromorphone Inj 0.5 Mg/0.5 Ml Syr IV 07/14/20 19:08 0.5 mg Q6H PRN Administration Pain Ampicillin Sodium/Sulbactam 108 mls @ 200 mls/hr 06/30/20 20:00 07/01/20 1 5:09 Sodium 3,000 mg/ Sodium IV 07/07/20 19:59 Infused Chloride Q6H SHELDON Infusion Protocol Latanoprost 1 drops 07/01/20 09:00 07/01/20 08:43 Latanoprost 0.005% Op Soln 2.5 Ml Btl OPL 07/31/20 08:59 1 drops DAILY SHELDON Administration Multivitamins/Minerals 1 tab 07/01/20 09:00 07/01/20 08:40 Cerovite Adv Formula Tab PO 07/31/20 08:59 1 tab DAILY SHELDON Administration Ondansetron HCl 4 mg 06/30/20 19:09 06/30/20 19:36 Ondansetron Inj 2 Mg/Ml 2 Ml Vial IV 07/30/20 19:08 4 mg Q6H PRN Administration Nausea Pantoprazole Sodium 40 mg 07/01/20 09:00 07/01/20 08:41 Pantoprazole 40 Mg Tab PO 07/31/20 08:59 40 mg DAILY SHELDON Administration Tizanidine HCl 4 mg 06/30/20 21:00 06/30/20 20:48 Tizanidine Hcl 4 Mg Tablet PO 07/30/20 20:59 4 mg HS SHELDON Administration Trazodone HCl 50 mg 06/30/20 21:00 06/30/20 20:48 Trazodone Hcl 50 Mg Tab PO 07/30/20 20:59 50 mg HS SHELDON Administration Zolpidem Tartrate 5 mg 06/30/20 19:09 06/30/20 21:21 Zolpidem Tartrate 5 Mg Tab PO 07/30/20 19:08 5 mg HS PRN Administration Sleep NPO Date Last Intake of Fluids: 07/01/20 Time Last Intake of Fluids: 14:00 Date Last Intake of Solids: 06/30/20 Time Last Intake of Solids: 08:00 Past Medical History Medical History (Updated 07/01/20 @ 17:10 by Nikolai Cisse MD) Coronary artery disease Depression History of high cholesterol History of hypertension Exercise / Class Metabolic Activity III < 4 Walking/Shop/Light housework Past Surgical History Surgical History History of cholecystectomy History of coronary artery bypass graft History of total hysterectomy Past Anesthesia History No Hx of Anesthesia Complications and No Family Hx of Anesthesia Complications History of PONV No Hx of PONV and No Hx of Motion Sickness Social History Smoking Status: Current every day smoker tobacco type: cigarettes Smoking cigarettes per day: 10 Do You Dip or Chew Tobacco: No Hx Alcohol Use: Yes Alcohol type: wine alcohol intake frequency: 0-2 drinks per day Alcohol Intake Frequency Comment: 1 glass a day Hx Substance Use: No Physical Exam Vital Signs Last Vital Signs Temp 36.9 C 07/01/20 18:41 Pulse 73 07/01/20 18:41 Resp 18 07/01/20 18:41 BP 129/77 07/01/20 18:41 Pulse Ox 92 07/01/20 18:41 Constitutional + thin ENMT Nose: + facial edema Mouth: + dental restorations; no dentition abnormality Thyromental Distance: < 3.5 Finger Breadths Mallampati Class: III Neck trachea midline, + anterior neck swelling and + submandibular swelling; + abnormal visual inspection and neck extension not limited Respiratory normal respiratory effort Auscultation: + diminished lung sounds Cardiovascular Rate/Rhythm: regular rate and regular rhythm Heart Sounds: no murmur Vessels: no carotid bruit Musculoskeletal Spine: normal cervical ROM Extremities: extremities normal to inspection Neurologic moves all extremities Motor/Sensory: no sensory deficit Psychiatric Orientation: alert and oriented x 3 Testing Laboratory Results 07/01/20 06:07 07/01/20 06:07 Electrocardiogram Date: 07/01/20 Findings: + NSR @ (at 83)
--- NOTE | 2020-07-01 13:49 | Electrocardiogram Report ---
Test Reason : Blood Pressure : / mmHG Vent. Rate : 083 BPM Atrial Rate : 083 BPM P-R Int : 150 ms QRS Dur : 086 ms QT Int : 374 ms P-R-T Axes : 047 049 062 degrees QTc Int : 439 ms Normal sinus rhythm Normal ECG No previous ECGs available Confirmed by Matt Alcantar ([id number]) on 07/01/2020 1:48:54 PM Referred By: REFERRED SELF Confirmed By:Matt Alcantar
[2020-07-01] MEDS: HYDROmorphone INJ 0.5 MG/0.5 ML SYR IV PRN ×2 (14:43→18:45)
[2020-07-01] MEDS ORDERED: NEOSTIGMINE METHYLSULFATE 1 MG/ML 10ML VIAL ONE (15:16)
[2020-07-01] MEDS ORDERED: DEXAMETHASONE SOD INJ 4 MG/ML VIAL ONE ×2 (15:16→17:00)
[2020-07-01] MEDS ORDERED: GLYCOPYRROLATE 0.2 MG/ML VIAL ONE (15:16)
[2020-07-01] MEDS ORDERED: ONDANSETRON INJ 2 MG/ML 2 ML VIAL ONE (15:16)
[2020-07-01] MEDS ORDERED: LIDOCAINE 2% 2 ML VIAL/AMP(20MG/ML) INFIL ONE (15:16)
[2020-07-01] MEDS ORDERED: ROCURONIUM BROMIDE 10 MG/ML 5 ML VIAL IV ONE (15:16)
[2020-07-01] MEDS ORDERED: PROPOFOL IV EMULSION 10 MG/ML 20 ML VIAL IV ONE (15:16)
[2020-07-01] MEDS ORDERED: fentaNYL citrate 100 MCG/2 ML VIAL ONE (15:17)
[2020-07-01] MEDS ORDERED: LIDOCAINE 2% JELLY 5 ML TUBE ONE (15:20)
--- NOTE | 2020-07-01 16:00 | History & Physical Bridge Note ---
Date of Service July 01, 2020 History & Physical Bridge Note I have examined the patient, reviewed the History & Physical and in the interval since the performance of the History & Physical I have noted the following changes of clinical significance: no changes noted I will plan I&D of right submandibular, submental and floor of the mouth Right side
[2020-07-01] MEDS ORDERED: BUPIVACAINE/EPINEPHRINE 0.5% 1:200,000 1.8 ML CARP ONE (16:15)
[2020-07-01] MEDS ORDERED: CHLORHEXIDINE GLUCONATE 0.12% 480 ML ONE (16:15)
[2020-07-01] MEDS ORDERED: CISATRACURIUM BESYLATE IV SOLN 2 MG/ML 10 ML VIAL IV ONE (16:31)
--- NOTE | 2020-07-01 17:05 | Hospitalist Progress Note ---
Date of Service July 01, 2020 Assessment & Plan (1) Quentin's angina: CT face/soft tissue on 06/30 consistent with Quentin's angina. Seen with Dr. Díaz in the patient's room. Feels this is stemming from a tooth. - Plan for extraction today with Dr. Díaz in the OR - Continue Unasyn -> Area of erythema is improving and leukocytosis has improved, so feel this is clearly a good response. - NPO until after surgery - Follow blood cultures (2) History of hypertension: Blood pressure is 140/50 today. - Held HCTZ, Imdur, and losartan in preparation for surgery - Restart tomorrow (3) Coronary artery disease: Hx of CABG, though details unclear. - Continue statin, ezetimibe - Not clear why she is not on aspirin, but will defer until after surgery (4) History of high cholesterol: - Continue atorvastatin & ezetimibe (5) Depression: - Continue fluoxetine, trazodone (6) DVT prophylaxis: SCDs - Got Lovenox evening of 06/30. Stopped for now until after surgery. Dr. Díaz made aware. Admission and Anticipated Discharge Date Admission Date: June 30, 2020 Subjective Still with pain and swelling in the mouth/throat area. Feels the redness is receding slightly. She denied any shortness of breath or stridor. No trouble swallowing liquids or saliva. Reports no fevers/chills, chest pain, shortness of breath, abdominal pain, nausea, or vomiting. Physical Exam Constitutional: WD/WN, vitals as above Eyes: EOM intact bilaterally; no conjunctival abnormality ENMT: external ear and nose normal, oropharynx normal Mouth: + oropharynx abnormality (Swelling of tongue) Neck: + submandibular swelling, + midline deformity (Large tender mass on anterior/right side of throat.) and + neck tender; + abnormal visual inspection Respiratory: normal respiratory effort, lungs clear to auscultation able to speak in complete sentences; no respiratory distress, not tachypneic, no audible wheezes, no nasal flaring, no pursed lip breathing, no tripod positioning and no stridor Cardiovascular: RRR, no murmur, no edema Gastrointestinal (Abdomen): Inspection/Auscultation: abdomen normal to inspection; abdomen not distended Musculoskeletal: no cyanosis or clubbing, extremities motor strength 5/5 Skin: no rashes, warm and dry Neurologic: moves all extremities and awake Psychiatric: Orientation: alert, oriented to person and cooperative Results & Data Results & Data ([facility]) Vital Signs (Past 12 Hours) Vital Signs Temp Pulse Pulse Pulse Resp BP Pulse Ox 07/01/20 15:13 36.7 C 89 18 140/53 L 93 07/01/20 15:04 92 H 07/01/20 11:24 36.9 C 81 18 150/69 H 90 07/01/20 09:14 85 07/01/20 08:04 36.9 C 87 18 137/74 94 PG Care Time/CCT Total # of Minutes Spent Total Time Spent with Patient: Total time spent is greater than 50% in coordination of care (as documented) at patient's floor/unit and/or counseling patient: Coding Level of Care Code 20487 Subseq Hosp Care Lvl 3 Diagnoses Quentin's angina K12.2 History of hypertension Z86.79 Coronary artery disease I25.10 History of high cholesterol Z86.39 Depression F32.9 DVT prophylaxis Z29.9
--- NOTE | 2020-07-01 17:36 | Post Operative Brief Note ---
PG Immediate Post Op with CF Date of Surgery July 01, 2020 Pre & Post Diagnosis Operation Date: 07/01/20 08:50 Pre-Op Diagnosis: Facial infection Post-Op Diagnosis: Facial infection I identified the patient and participated in the time-out.: Yes Procedure Operation Date: 07/01/20 08:50 Actual Procedures p Incision and Drainage of Face(Not Applicable) - Carson Díaz DMD s Tooth Extraction #31(Not Applicable) - Carson Díaz DMD Surgeon Carson Díaz DMD Can Reconditioner none Estimated Blood Loss 25 Findings Consistent with Post-Op Diagnosis Specimens Specimen Description: Cultures 1. Infection of Face Superficial 2. Infection of Face Deep Drains Freeman Drain
[2020-07-01] MEDS ORDERED: ATROPINE SULFATE 0.1 MG/ML 10ML SYR IV PRN (17:37)
[2020-07-01] MEDS ORDERED: ePHEDrine sulfate 50 MG/ML AMP IV PRN (17:37)
[2020-07-01] MEDS ORDERED: fentaNYL citrate 100 MCG/2 ML VIAL IV PRN (17:37)
[2020-07-01] MEDS ORDERED: ONDANSETRON INJ 2 MG/ML 2 ML VIAL IV PRN (17:37)
--- NOTE | 2020-07-01 18:26 | Anesthesiology Progress Note ---
Date of Service July 01, 2020 Anesthesia Post Procedure Vital Signs Vital Signs: Temp Pulse Pulse Pulse Pulse Pulse Resp 07/01/20 18:15 68 18 07/01/20 18:05 36.6 C 69 20 07/01/20 17:55 76 17 07/01/20 17:45 68 68 15 07/01/20 17:35 69 69 16 07/01/20 17:26 36.1 C L 72 72 12 07/01/20 15:13 36.7 C 89 18 07/01/20 15:04 92 H 07/01/20 11:24 36.9 C 81 18 07/01/20 09:14 85 07/01/20 08:04 36.9 C 87 18 07/01/20 03:15 38.1 C H 95 H 18 06/30/20 23:54 73 06/30/20 23:39 37.1 C 83 18 06/30/20 19:30 88 BP Pulse Ox 07/01/20 18:15 140/50 L 93 07/01/20 18:05 156/52 H 92 07/01/20 17:55 166/51 H 92 07/01/20 17:45 154/49 H 95 07/01/20 17:35 142/59 H 95 07/01/20 17:26 124/60 95 07/01/20 15:13 140/53 L 93 07/01/20 15:04 07/01/20 11:24 150/69 H 90 07/01/20 09:14 07/01/20 08:04 137/74 94 07/01/20 03:15 130/72 94 06/30/20 23:54 06/30/20 23:39 129/57 L 97 06/30/20 19:30 Pain Intensity Bilateral Throat: Pain Intensity: 5 Transfer of Care Handoff Completed per policy Notes Mental Status: alert / awake / arousable and participated in evaluation Patient Amnestic to Procedure: Yes Nausea / Vomiting: adequately controlled Pain: adequately controlled Airway Patency, RR, SpO2: stable & adequate BP & HR: stable & adequate Hydration State: stable & adequate Anesthetic Complications: no major complications apparent and Pt Satisfied with anesthetic care
[2020-07-01 19:51] LABS: BUN Creatinine Ratio 28.2 (10-20); Calcium 7.1 mg/dl (8.5-10.1); Creatinine Clr Calc Pharmacy 85.5 ml/min; Est GFR (African American) 112.8 ml/min; Est GFR (Non-African American) 97.3 ml/min; Potassium 3.7 mmol/L (3.5-5.1)
[2020-07-01] MEDS: GABAPENTIN 100 MG CAP PO SCH (20:56)
[2020-07-01] MEDS: tiZANidine HCL 4 MG TABLET PO SCH (20:56)
[2020-07-01] MEDS: traZODone HCL 50 MG TAB PO SCH (21:32)
[2020-07-01] MEDS: ZOLPIDEM TARTRATE 5 MG TAB PO PRN (22:05)
[2020-07-02] MEDS: AMPICILLIN/SULBACTAM SOD 3,000 MG in 0.9 % SODIUM CHLORIDE 100 ML IV SCH ×4 (01:48→20:08)
[2020-07-02] MEDS: HYDROmorphone INJ 0.5 MG/0.5 ML SYR IV PRN ×3 (05:26→18:19)
[2020-07-02 05:54] LABS: Hemoglobin 11.3 g/dL (12.0-16.0); Mean Corpuscular Hgb Conc 33.2 g/dL (32-36); Mean Corpuscular Volume 93.4 fL (80-100); Mean Platelet Volume 9.6 fL (7.4-10.4); Platelet Count 305 K/uL (130-400); RDW Coefficient of Variation 13.4 % (11.5-14.5); RDW Standard Deviation 46.1 fL (36.4-46.3); Red Blood Count 3.64 M/uL (4.2-5.4); White Blood Count 13.42 K/uL (4.8-10.8)
[2020-07-02 06:26] LABS: BUN Creatinine Ratio 24.2 (10-20); Calcium 7.4 mg/dl (8.5-10.1); Creatinine Clr Calc Pharmacy 70.2 ml/min; Est GFR (African American) 105.7 ml/min; Est GFR (Non-African American) 91.2 ml/min; Magnesium 2.5 mg/dl (1.8-2.4); Potassium 3.8 mmol/L (3.5-5.1)
--- NOTE | 2020-07-02 08:14 | Oral/Maxillofacial Progress Nt ---
Date of Service Post Op infection evaluation day 1 The infected area is now starting to resolve very well. Swelling in the mouth and under the tongue is resolving nicely, still submental swelling drainage is still noted--given the large volume of pus this is expected Drain---I will make plans to remove the drains as out patient Cultures pending Infection is responding very well to the antibiotics and the I and D/ dental extraction of # 31 I requested that the patient continue with massage, heat and wound care. At this time the infection is responding well. Given the amount of drainage and multiply spaces involved with the infection another 24 hours of IV antibiotics is indicated. PLAN I will evaluate tomorrow and plan for discharge and follow up with my office MY GET OUT OF BED AND AMBULATE DIET TOLERATED July 02, 2020 Assessment & Plan Admission and Anticipated Discharge Date Admission Date: June 30, 2020 Results & Data ([facility]) Vital Signs (Past 12 Hours) Vital Signs Temp Pulse Pulse Pulse Resp BP BP 07/02/20 07:46 36.6 C 75 18 126/78 07/02/20 03:20 36.2 C L 73 152/70 H 07/02/20 00:18 37 C 64 16 100/54 L 07/01/20 22:20 64 07/01/20 20:56 36.6 C 73 18 124/73 Pulse Ox 07/02/20 07:46 95 07/02/20 03:20 95 07/02/20 00:18 92 07/01/20 22:20 07/01/20 20:56 91 PG Care Time/CCT Total # of Minutes Spent Total Time Spent with Patient: Total time spent is greater than 50% in coordination of care (as documented) at patient's floor/unit and/or counseling patient: Coding Level of Care Code 28615 Subseq Hosp Care Lvl 1
[2020-07-02] MEDS: CEROVITE ADV FORMULA TAB PO SCH (08:56)
[2020-07-02] MEDS: FLUoxetine HCL 20 MG CAP PO SCH (08:56)
[2020-07-02] MEDS: ATORVASTATIN 40 MG TAB PO SCH (08:56)
[2020-07-02] MEDS: PANTOprazole 40 MG TAB PO SCH (08:56)
[2020-07-02] MEDS: LATANOPROST 0.005% OP SOLN 2.5 ML BTL OPL SCH (08:56)
[2020-07-02] MEDS: EZETIMIBE 10 MG TABLET PO SCH (08:56)
[2020-07-02] MEDS: FAMOTIDINE 20 MG TAB PO SCH (09:49)
[2020-07-02] MEDS: ACETAMINOPHEN 325 MG TAB PO PRN (16:28)
[2020-07-02] MEDS: ZOLPIDEM TARTRATE 5 MG TAB PO PRN (20:08)
[2020-07-02] MEDS: tiZANidine HCL 4 MG TABLET PO SCH (20:09)
[2020-07-02] MEDS: GABAPENTIN 100 MG CAP PO SCH (20:09)
[2020-07-02] MEDS: traZODone HCL 50 MG TAB PO SCH (20:11)
[2020-07-02] MEDS ORDERED: DOCUSATE SODIUM 100 MG CAP PO PRN (21:06)
--- NOTE | 2020-07-02 21:24 | Hospitalist Progress Note ---
Date of Service July 02, 2020 Assessment & Plan (1) Quentin's angina: CT face/soft tissue on 06/30 consistent with Quentin's angina. Seen with Dr. Díaz in the patient's room. Feels this is stemming from a tooth. - Plan for extraction today with Dr. Díaz in the OR - Continue Unasyn -> Area of erythema is improving and leukocytosis has improved, so feel this is clearly a good response. - NPO until after surgery - Follow blood cultures Anticipate discharge tomorrow. (2) History of hypertension: Blood pressure is 140/50 today. - Held HCTZ, Imdur, and losartan in preparation for surgery - Hold today as BP has mainly been at goal. Restart at discharge or on 07/03 (3) Coronary artery disease: Hx of CABG, though details unclear. - Continue statin, ezetimibe - Not clear why she is not on aspirin, but will defer until after surgery (4) History of high cholesterol: - Continue atorvastatin & ezetimibe (5) Depression: - Continue fluoxetine, trazodone (6) DVT prophylaxis: SCDs - Got Lovenox evening of 06/30. Stopped for now until after surgery. Dr. Díaz made aware. Admission and Anticipated Discharge Date Admission Date: June 30, 2020 Subjective Patient reports no new symptoms. Review of Systems Review of Systems: All systems reviewed & are unremarkable except as noted in HPI & below Physical Exam Physical Exam: Constitutional: WD/WN, vitals as above Eyes: EOM intact bilaterally; no conjunctival abnormality ENMT: external ear and nose normal, oropharynx normal Mouth: + oropharynx abnormality (Swelling of tongue) Neck: + submandibular swelling, + midline deformity (Large tender mass on anterior/right side of throat.) and + neck tender; + abnormal visual inspection Respiratory: normal respiratory effort, lungs clear to auscultation able to speak in complete sentences; no respiratory distress, not tachypneic, no audible wheezes, no nasal flaring, no pursed lip breathing, no tripod positioning and no stridor Cardiovascular: RRR, no murmur, no edema Gastrointestinal (Abdomen): Inspection/Auscultation: abdomen normal to inspection; abdomen not distended Musculoskeletal: no cyanosis or clubbing, extremities motor strength 5/5 Skin: no rashes, warm and dry Neurologic: moves all extremities and awake Psychiatric: Orientation: alert, oriented to person and cooperative Results & Data Results & Data ([facility]) Vital Signs (Past 12 Hours) Vital Signs Temp Pulse Pulse Resp BP Pulse Ox 07/02/20 19:05 36.9 C 77 18 156/65 H 92 07/02/20 16:06 82 07/02/20 15:32 37.1 C 80 16 143/68 H 90 07/02/20 11:23 36.7 C 77 18 145/72 H 90 PG Care Time/CCT Total # of Minutes Spent Total Time Spent with Patient: Total time spent is greater than 50% in coordination of care (as documented) at patient's floor/unit and/or counseling patient: Coding Level of Care Code 87047 Subseq Hosp Care Lvl 2 Diagnoses Quentin's angina K12.2 History of hypertension Z86.79 Coronary artery disease I25.10 History of high cholesterol Z86.39 Depression F32.9 DVT prophylaxis Z29.9 Time Spent (min) 25
[2020-07-03] MEDS: AMPICILLIN/SULBACTAM SOD 3,000 MG in 0.9 % SODIUM CHLORIDE 100 ML IV SCH ×3 (01:36→14:33)
[2020-07-03] MEDS: HYDROmorphone INJ 0.5 MG/0.5 ML SYR IV PRN (06:35)
[2020-07-03] MEDS: ATORVASTATIN 40 MG TAB PO SCH (08:17)
[2020-07-03] MEDS: FLUoxetine HCL 20 MG CAP PO SCH (08:17)
[2020-07-03] MEDS: LATANOPROST 0.005% OP SOLN 2.5 ML BTL OPL SCH (08:17)
[2020-07-03] MEDS: CEROVITE ADV FORMULA TAB PO SCH (08:17)
[2020-07-03] MEDS: EZETIMIBE 10 MG TABLET PO SCH (08:17)
[2020-07-03] MEDS: FAMOTIDINE 20 MG TAB PO SCH (08:17)
[2020-07-03] MEDS: PANTOprazole 40 MG TAB PO SCH (08:17)
[2020-07-03] MEDS: ACETAMINOPHEN 325 MG TAB PO PRN (08:24)
[2020-07-03] MEDS ORDERED: ENOXAPARIN INJ 40 MG/0.4 ML SYR SQ STA (11:21)
--- NOTE | 2020-07-03 12:07 | XRay Report ---
XR chest 2V PA/lateral CLINICAL HISTORY: hypoxia COMPARISON STUDY: No previous studies for comparison. FINDINGS: The patient is hyperinflated. There are old right-sided rib deformities. The heart is adalid l in size. There is aortic tortuosity. There are postsurgical changes of a midline sternotomy. Trace bilateral pleural effusions. Increased basilar markings statistically atelectatic. There is no curren t evidence of failure.[ IMPRESSION: 1. Emphysematous configuration of the chest 2. Small bilateral pleural effusions 3. Minor basilar atelectasis. ACT 112: Negative or not required by law. Electronically signed by: Antony Albright M.D. 07/03/2020 12:06 PM
--- NOTE | 2020-07-03 12:14 | Oral/Maxillofacial Progress Nt ---
Date of Service Post Op infection evaluation day 2 The infected area is now healing very well. Swelling is almost gone and the tissue is healing well Slight drainage is noted. Drain was trimmed--will plan removal in office on July 07, 2020 Cultures were reviewed. Infection has responded very well to the antibiotics and the I and D/extraction. I requested that the patient continue with massage, heat and wound care. At this time the area is well healed and responded well to treatment. OK for Discharge as per Oral Surgery Rx--Augmentin 875/125 , Vicodin and Zofran RTC July 07 2020 at 10:45 am July 03, 2020 Assessment & Plan Admission and Anticipated Discharge Date Admission Date: June 30, 2020 Results & Data ([facility]) Vital Signs (Past 12 Hours) Vital Signs Temp Pulse Pulse Resp BP Pulse Ox 07/03/20 11:48 36.7 C 80 15 143/78 H 96 07/03/20 09:30 93 07/03/20 09:00 84 07/03/20 08:50 94 07/03/20 08:06 37.1 C 81 18 142/92 H 86 L PG Care Time/CCT Total # of Minutes Spent Total Time Spent with Patient: Total time spent is greater than 50% in coordination of care (as documented) at patient's floor/unit and/or counseling patient: Coding Level of Care Code 25120 Subseq Hosp Care Lvl 1
--- NOTE | 2020-07-03 12:32 | Ultrasound Report ---
BILATERAL LOWER EXTREMITY VENOUS DOPPLER HISTORY: hypoxia COMPARISON STUDY: None. FINDINGS: Nonocclusive peripheral thrombus seen at the right proximal greater saphenous vein adjacent to the confluence with the common femoral vein. This suggests chronic thrombus. The remaining bilate ral lower extremity deep venous structures are patent. IMPRESSION: 1. Small amount of nonocclusive chronic thrombus within the right proximal greater saphenous vein adj acent to the confluence with the common femoral vein. 2. Otherwise, no acute DVT within the right or left lower extremity. ACT 112: Negative or not required by law. Electronically signed by: Hernando Salter M.D. 07/03/2020 12:30 PM
[2020-07-03] MEDS ORDERED: OPTIRAY 350 500ml IV ONE (14:02)
--- NOTE | 2020-07-03 14:25 | CT Scan Report ---
CT ANGIOGRAM OF THE CHEST CLINICAL HISTORY: Hypoxia. DVT. Possible acute pulmonary embolism. COMPARISON STUDY: Chest x-ray dated 06/25/2020 TECHNIQUE: Following the IV administration of 119 mL of Optiray, CT angiogram of the thorax was perfo rmed from the thoracic inlet to the lung bases utilizing the pulmonary embolus protocol. Images are r eviewed in the axial, sagittal, and coronal planes. IV contrast was administered without complication . MIP imaging was performed. A dose lowering technique was utilized adhering to the principles of AL FEI. CT DOSE: 249.72 mGy.cm FINDINGS: Images the upper abdomen reveal a 12 mm left renal cyst and 3 mm left renal calculus/hyperdense cyst. There is a multinodular thyroid gland. No pathologically enlarged axillary mediastinal or hilar lymph nodes were visualized. There is a left aortic arch with an aberrant right subclavian artery. There is significant atheromato us changes within the aberrant right subclavian. There were no pulmonary artery filling defects to indicate acute pulmonary embolism. There are trace pleural effusions. There is pulmonary emphysema. There are dependent bilateral opacit ies likely representing atelectasis. There is bronchial wall thickening with lower lobe mucus pluggin g. There is narrowing of the left mainstem bronchus and bronchus intermedius, possibly secondary to c artilaginous weakness as no discrete mass identified. There is a solid 5.8 mm right lower lobe pulmon mikaela nodule as visualized on image #152 series 4. There is a hiatal hernia. There is distal esophageal wall thickening. IMPRESSION: 1. No evidence of acute pulmonary embolism 2. Left aortic arch with an aberrant right subclavian artery 3. Trace pleural effusions and dependent atelectasis 4. Pulmonary emphysema 5. Bronchial wall thickening and lower lobe mucus plugging 6. Narrowing of the left mainstem bronchus and bronchus intermedius possibly secondary to cartilagino us deficiency. 7. Solid 5.8 mm right lower lobe pulmonary nodule 8. Hiatal hernia with distal esophageal wall thickening Please refer to below summary of Fleischner criteria recommendations for follow-up of incidental CT n odules ([facility] [place], Guidelines for management of small pulmonary nodules detected on CT scans: A sta tement from the Fleischner Society, Radiology 237: [phone].) SOLID NODULES Solitary nodule size: <6 mm * low risk patients: no follow-up needed * high risk patients: optional CT at 12 months Solitary nodule size: 6-8 mm * low risk patients: follow-up at 6-12 months, then consider further follow-up at 18-24 months * high risk patients: initial follow-up CT at 6-12 months and then at 18-24 months if no change Solitary nodule size: >8 mm * either low or high risk patients - consider follow-up CT at 3 months, and/or CT-PET, and/or biopsy Multiple nodules size: <6 mm * low risk patients: no routine follow-up * high risk patients: optional CT at 12 months Multiple nodules size: 6-8 mm * low risk patients: follow-up at 3-6 months, then consider further follow-up at 18-24 months * high risk patients: follow-up at 3-6 months, then at 18-24 months if no change Multiple nodules size: >8 mm * low risk patients: follow-up at 3-6 months, then consider further follow-up at 18-24 months * high risk patients: follow-up at 3-6 months, then at 18-24 months if no change Note: newly detected indeterminate nodule in persons 35 years of age or older. * low risk patients: minimal or absent history of smoking and/or other known risk factors * high risk patients: history of smoking or of other known risk factors (e.g. first degree relative with lung cancer, or exposure to asbestos, radon, uranium) * if a nodule up to 8 mm is partly solid or is ground glass further follow-up is required after 24 m onths to exclude possible slow growing adenocarcinoma (COLLEEN) SUBSOLID NODULES Solitary pure ground-glass nodule * nodule size <6 mm - no CT follow-up required * nodule size >=6 mm - follow-up CT at 6-12 months, then every 2 years until 5 years Solitary part-solid nodule * nodule size <6 mm - no CT follow-up required * nodule size >=6 mm - follow-up CT at 3-6 months. If unchanged, and solid component remains <6 mm, then annual follow-up for 5 years Multiple subsolid nodules * nodule size <6 mm - follow-up CT at 3-6 months, consider further follow-up at 2 and 4 years if sta ble * nodule size >=6 mm - follow-up CT at 3-6 months, subsequent management based on the most suspiciou s nodule(s) ACT 112: Negative or not required by law. Electronically signed by: Antony Albright M.D. 07/03/2020 2:23 PM
--- NOTE | 2020-07-08 21:04 | Discharge Summary ---
Date of Service July 03, 2020 Admission HPI Per Admitting Provider This is a 75-year-old female with past medical history of hypertension hypercholesterolemia that presents today complaining of right dental pain. Patient is pleasant but has some difficulty speaking secondary to her pain. Per records, patient has been having slowly worsening pain for the past 5 days. This is mostly in her right jaw with some radiation into her right cheek. She has had no fevers or chills and she has had no nausea vomiting. She has had some difficulty taking in solid food since it hurts to chew. She denies any trauma. Patient was seen at an outside clinic and recommended she come here for further evaluation. At the time my evaluation, patient appears to be in some discomfort, hurts worse when she is trying to open her mouth. She is able to answer questions. As she does have obvious facial swelling, especially on the right. Principal Diagnosis Quentin's angina Discharge Exam Constitutional: WD/WN, vitals as above Eyes: EOM intact bilaterally; no conjunctival abnormality ENMT: external ear and nose normal, oropharynx normal Mouth: + oropharynx abnormality (Swelling of tongue) Neck: + decreased submandibular swelling, + abnormal visual inspection Respiratory: normal respiratory effort, lungs clear to auscultation able to speak in complete sentences; no respiratory distress, not tachypneic, no audible wheezes, no nasal flaring, no pursed lip breathing, no tripod positioning and no stridor Cardiovascular: RRR, no murmur, no edema Gastrointestinal (Abdomen): Inspection/Auscultation: abdomen normal to inspection; abdomen not distended Musculoskeletal: no cyanosis or clubbing, extremities motor strength 5/5 Skin: no rashes, warm and dry Neurologic: moves all extremities and awake Psychiatric: Orientation: alert, oriented to person and cooperative Discharge Data Allergies Allergy/AdvReac Type Severity Reaction Status Date / Time iodine Allergy Mild rash Verified 07/07/20 10:49 latex Allergy Mild rash Verified 07/07/20 10:49 Consultations 06/30/20 15:36 Consult Oromaxillofacial Surgery Stat ED Decision to Admit Stat 07/03/20 15:29 Consult Lung Nodule Program Routine Procedures Performed Operation Date: 07/01/20 08:50 Actual Procedures p Incision and Drainage of Face(Not Applicable) - Carson Díaz DMD s Tooth Extraction #31(Not Applicable) - Carson Díaz DMD Ordered Studies 06/30/20 13:21 CT soft tissue neck w con Stat 07/03/20 13:00 US venous doppler LE BI Urgent 07/03/20 13:05 CT angio chest PE protocol Urgent Hospital Course (1) Quentin's angina: CT face/soft tissue on 06/30 consistent with Quentin's angina. Seen with Dr. Díaz in the patient's room. Feels this is stemming from a tooth. - Operation Date: 07/01/20 08:50 Actual Procedures p Incision and Drainage of Face(Not Applicable) - Carson Díaz DMD s Tooth Extraction #31(Not Applicable) - Carson Díaz DMD - Continue Unasyn -> Area of erythema is improving and leukocytosis has improved, so feel this is clearly a good response. On discharge: Appreciate input from Dr. Díaz. The infected area is now healing very well. Swelling is almost gone and the tissue is healing well Slight drainage is noted. Drain was trimmed--will plan removal in office on July 07, 2020 Cultures were reviewed. Infection has responded very well to the antibiotics and the I and D/extraction. I requested that the patient continue with massage, heat and wound care. At this time the area is well healed and responded well to treatment. OK for Discharge as per Oral Surgery Rx--Augmentin 875/125 , Vicodin and Zofran Agree with above plan, (2) History of hypertension: Blood pressure is 140/50 today. - Held HCTZ, Imdur, and losartan in preparation for surgery - Hold today as BP has mainly been at goal. Restart at discharge but will hold HCTZ for now as BP has been controlled (3) Coronary artery disease: Hx of CABG, though details unclear. - Continue statin, ezetimibe - Not clear why she is not on aspirin, but will defer until after surgery (4) History of high cholesterol: - Continue atorvastatin & ezetimibe (5) Depression: - Continue fluoxetine, trazodone (6) DVT prophylaxis: SCDs - Got Lovenox evening of 06/30. Stopped for now until after surgery. Dr. Díaz made aware. Total Time Total Time Spent Total Time Spent (In Minutes): 32 Total Time Includes: Examination of the Patient, Discharge Planning and Medication Reconciliation Discharge Plan Discharge Items Patient Disposition: Home - Self-Care Reason For Visit: FACIAL SWELLING Discharge Diagnosis: S/P facial infection Condition on Discharge: Good Activity: Resume your previous activity Lifting: Gradually increase as tolerated Bathing: No limitations Exercise/Sports: Gradually increase as tolerated Weightbearing: Full weightbearing Non-emergency contact: Surgeon Call non-emergency contact if: your temperature is above 101.5, your wound has increased redness, your wound has increased drainage and your wound pain has increased Follow-up/Referrals: Carson Díaz, DMD [Physician] - 07/14/20 2:30 pm PCP,NO [Primary Care Provider] - Diet: Regular Addtl Attending Provider Instructions: ADDITIONAL ACTIVITY RECOMMENDATIONS: * [place] teeth after every meal. It is very important to keep your mouth clean to prevent infection. * Starting tonight rinse with the Peridex as directed then 2 x a day * it is very important to keep well hydrated, this prevents fever and possible dry socket pain SPECIAL CARE INSTRUCTIONS: *It is not uncommon that between day 2-4 that your swelling will be at its worst this is very normal, do not be alarmed. * apply heat (hot water bottle or heating pad) for the next two days, as often as possible. * Tomorrow start rinsing your mouth with 1/2 teaspoon salt in 8 ounces warm water. This rinse should be used every 4-6 hours. * You may experience slight nausea. To prevent this, never take your medication on an empty stomach. If nauseated, take small sips of kyle feng until you feel better; then you may start on applesauce and toast. * Some swelling is common. It should gradually decrease within 4-5 days. * A certain amount of bleeding is to be expected. It is often possible to control mild oozing by placing folded gauze over the area and biting down for 30 minutes. If you are unable to control excessive bleeding, call Dr Díaz at [phone] * You may experience some discomfort for a few days. If pain or swelling increases, Call Dr Díaz * Return to the office for a follow up check up if one was given to you. MondayJuly 07 at 10:45 and July 14 * If you do not have a follow up appointment please call the office at [phone] and set one up for 10-15 days after your surgery Addtl Blueprint Clerk Provider Instructions: You have a small clot in your right proximal greater saphenous vein. Will recommend to start a blood thinning medication. You can start in the morning. Pending Studies at Discharge: No Stand-Alone Forms: My [facility], Smoking Cessation Medications and DC Order Prescriptions: New chlorhexidine gluconate [Peridex] 0.12 % mouthwash 15 ml buccal BID Qty: 473 RF: 0 docusate sodium 100 mg Capsule 100 mg PO BID PRN (Reason: constipation) Qty: 20 RF: 0 Eliquis 5 mg tablet 5 mg PO BID Qty: 74 RF: 0 Continued ondansetron HCl 8 mg tablet 8 mg PO Q8H PRN (Reason: nausea and vomiting) Qty: 10 RF: 0 losartan 50 mg Tablet 50 mg PO DAILY RF: 0 fluoxetine 40 mg Capsule 40 mg PO DAILY RF: 0 atorvastatin 80 mg Tablet 80 mg PO DAILY RF: 0 tizanidine 4 mg Tablet 4 mg PO HS RF: 0 isosorbide mononitrate 30 mg Tablet Extended Release 24 Hr 30 mg PO DAILY RF: 0 pantoprazole 40 mg Tablet,Delayed Release (Dr/Ec) 40 mg PO DAILY RF: 0 latanoprost 0.005 % Drops 1 drp OPL DAILY RF: 0 trazodone 50 mg Tablet 50 mg PO HS RF: 0 gabapentin 100 mg Capsule 100 - 200 mg PO HS RF: 0 ezetimibe 10 mg Tablet 10 mg PO DAILY RF: 0 PreserVision AREDS-2 250-90-40-1 mg Capsule 1 tab PO AMHS RF: 0 hydrocodone-acetaminophen 5-325 mg tablet 1 tab PO Q4H PRN (Reason: pain) Qty: 14 RF: 0 amoxicillin-pot clavulanate 875-125 mg tablet 1 tab PO Q12H Qty: 20 RF: 0 Discontinued meloxicam 15 mg Tablet 15 mg PO HS RF: 0 hydrochlorothiazide 12.5 mg Capsule 12.5 mg PO DAILY RF: 0 Discharge Orders: Discharge Order (Routine); Ordered 07/03/20 Ordered By: Geoffrey Brown Admission Data Admit Date/Time: 06/30/20 16:19 Attending Provider: Geoffrey Brown Admit Provider: Prince Li Primary Care Provider: PCP,NO Other Providers: Nikolai Cisse ; Carson Díaz ; Prince Li Other Interventions: Discharge Summary Assessment (RN) Last Done: 07/03/20 15:54 Coding Level of Care Code D/C Day Management >30 mins Diagnoses Quentin's angina K12.2 History of hypertension Z86.79 Coronary artery disease I25.10 History of high cholesterol Z86.39 Depression F32.9 DVT prophylaxis Z29.9 Time Spent (min) 32
--- NOTE | 2020-07-09 09:32 | Operative Report ---
GIUSEPPE Post Operative Report Pre & Post Diagnosis Operation Date: 07/01/20 08:50 Pre-Op Diagnosis: Facial infection---early Quentin angina infected # 31 Post-Op Diagnosis: Facial infection--early Quentin Angina infected # 31 I identified the patient and participated in the time-out.: Yes Procedure c Coding ICD 10 ----K12.1 and K04.6 CPT--------72479, 50872, 33545 for tooth # 31 ([id number] Operation Date: 07/01/20 08:50 Actual Procedures p Incision and Drainage of Face(Not Applicable) - Carson Díaz DMD s Tooth Extraction #31(Not Applicable) - Carson Díaz DMD Actual Procedures p Incision and Drainage Submandibular Abscess; Removal of Tooth #31 (Not Applicable) - Carson Díaz DMD Once cleared for surgery general anesthesia was achieved, the eyes were protected by the anesthesia dept criteria. A time out was take for patient ID, antibiotics, equipment and position verification once all agreed the procedure began. Local anesthesia using Marcaine with a vasoconstrictor ( 1.8 ml per site) given into right inferior alveolar nerve A throat pack was placed after the oral cavity was irrigated with saline. Once a surgical level of anesthesia was obtained and the local anesthesia was given time for the blocks the surgery was started. I turned my attention to the infection which was located in the floor of the mouth and submental area. The tongue was elevated and there was also swelling associated with tooth # 31( see CT scan report) Incision and Drainage--early Quentin angina infection right side of face with elevation of tongue Using a 15 blade an incision was made lateral to the alveolar ridge and medial to the duct of the submandibular gland. Once the incision was made a lot of pus extruded from the site. This drainage was cultured for anaerobic and aerobic bacteria. A curved hemostat was carefully placed into the infected space along the medial side of the lower jaw and into the submental space. I now mad a small incision in the submental area and drained about 20 cc of pus from this space. A curved hemostat was placed from the chin into the floor of the mouth. Some further drainage was now allowed to escape. Another incision was made in the submandibular space and once again a lot of pus escaped from this site. The hemostat was now passed into the mouth on the facial aspect of the infection. I palpated the chin and submental area and no further drainage was expressed. The area was irrigated with at least 100 ml of NS solution.1/4 inch pen lynn drains were placed and sutured into place with 2-0 chromic. I now turned my attention to remove the # 31 tooth. Lower # 31 The full thick Muco-periosteal flap was made on the facial aspect from # 28- right retromandibular area was developed. Some pus was released from the mandibular space. The flap was reflected to expose the the subperiosteal space the bone adjacent to # 31 # 31 was an abutment to a bridge from 28-31 I was able to remove the 4 unit bridge with ease. We will address the remaking of the crown on # 28 in the future.. The rogue was used to remove bone, the tooth was removed with a 301 elevator and dental forceps , the mental nerve was intact, there was a large amount of granulation tissue on the apex and some more pus that was expressed. this tooth was grossly infected and the cause of the infection. At this time I inspected the sites to insure all bleeding was controlled and the drains were secure. I removed the throat pack and suctioned the throat. A gauze pressure dressings were placed. All instrument and sponge count was correct. the patient was allowed to awake from the anesthesia. Once full awake the anesthesia tube was removed and the patient was taken to the recovery room with all vital sign stable. The patient tolerated the surgery very well. I will follow the patient in my office, Rx and instructions will be given upon discharge. Surgeon Carson Díaz, DMD Flight Communications Officer none Estimated Blood Loss 25 Findings Consistent with Post-Op Diagnosis Specimens C and S of infection Description of Procedure I and D and Extraction of # 31 Quentin angina--severe infection I attest to the content of the Intraoperative Record and any orders documented therein. Any exceptions are noted below.
== END 2020-07-03 16:33 | disposition home or self-care (01) | DRG 137 ==
LOC: ED 12:42 → SUATTDRO 16:19 → 2N 16:19

== ENCOUNTER 2023-02-02 21:37 | Inpatient (IN) ==
--- NOTE | 2023-02-02 22:03 | Emergency Department Note ---
Impression & Plan Seizure-like activity ADMIT ED Provider Note HPI: History obtained from EMS report per bedside RN The patient is a 77-year-old female with history of coronary artery disease status post CABG, history of perforated duodenal ulcer, hyponatremia, apparent chronic deconditioning and malnutrition with poor p.o. intake status post PEG tube placement, who presents to the emergency department with concern for seizure-like activity that was noted at approximately 7:30 PM at her [place] [facility]. EMS report was provided by the bedside RN on my assessment, patient apparently exhibited some seizure-like activity that was witnessed by staff at her nursing facility. She has remained somewhat drowsy since this event. On arrival here to the ED the patient is postictal appearing but she is alert to verbal stimuli, she is able to answer my questions with head nodding and she does follow commands. She does not have any obvious focal deficits. Patient is hemodynamically stable on arrival on nasal cannula oxygen. Patient was noted to have an episode of hemoptysis which on my exam appears to be secondary to an injury to her lower lip. ROS: - Per HPI Differential Diagnosis: Seizure, intracranial mass, intracranial hemorrhage, stroke, sepsis, amongst other potential pathologies. *Outpatient medications and allergy history reviewed. PE: General: Drowsy appearing but alert to verbal stimuli, follows commands appropriately HEENT: Normocephalic, trachea midline, there is a small laceration to the inferior portion of the lower lip without active bleed Eyes: Extraocular eye movement is intact, no scleral erythema Pulmonary: Clear to auscultation bilaterally, no wheezing Cardio: Regular rate and rhythm GI: Abdomen is soft to palpation : No suprapubic tenderness MSK: No evidence of trauma or malformation of the extremities, no edema Skin: No evidence of rash Neuro: Drowsy appearing, answers questions with head nodding, follows commands, no focal deficits noted Psychiatric: N/A INDEPENDENT INTERPRETATIONS: media monitor: (As interpreted by myself): - An order was placed for continuous cardiac monitoring - Patient was noted to be in sinus rhythm with a rate of 80 EKG: (As interpreted by myself): Rate: 95 Rhythm: Normal sinus rhythm Intervals: Within normal limits ST changes: No ST elevation Time: 2213 Interventions provided in ED: -IV fluid bolus, IV Keppra, IV potassium chloride with normal saline Medical Decision Making: Shortly after the patient arrived IV was established and lab work obtained, patient was placed on ekg monitor tech. Patient is following commands on arrival, reportedly had some seizure-like activity earlier today, she does not have any focal deficits, she is not considered a thrombolytic candidate on arrival following my discussion with the patient's daughter over concern for stroke possibly not being the most likely diagnosis and risk of hemorrhage outweighing potential benefit of thrombolytics. Patient's daughter is in agreement. Lab work shows no leukocytosis, hemoglobin is stable for the patient's baseline at 8.5, platelet count is normal, she is CMP shows a mild hyponatremia at 133, potassium is low at 3.2, BUN is elevated at 42, creatinine near baseline at 2.28, lactic acid is elevated at 5.9 possibly consistent with seizure-like activity, troponin is mildly elevated at 20.9. CT imaging of the head was obtained that shows evidence of a left-sided mass effusion that appears progressive according to the interpreting radiologist, no evidence of intracranial stroke or hemorrhage. CT imaging of the chest was obtained given the patient's reported hemoptysis on arrival and this does not show any evidence of acute pathology, lungs are clear. CT imaging of the abdomen pelvis shows evidence of a nonunion fracture of the pelvis without acute intra-abdominal pathology otherwise noted by the interpreting radiologist. On my reassessment the patient's daughter remains at the bedside, the patient is stable, she is answering my questions and appears more alert. Will admit to the hospitalist service, patient was loaded with IV Keppra here in the ED and will await repeat lactic acid following IV fluid resuscitation. Patient's daughter is in agreement for admission. She does state that the patient is DNR/DNI CODE STATUS should she decompensate. This was updated in the patient's chart. I discussed the patient's presentation with the on-call hospitalist, Dr. Wild, and the patient was placed for admission in stable condition. Consultants/Discussions held with other healthcare providers: -Dr. Wild, hospitalist Disposition discussion held by myself with: -Patient and patient's daughter at the bedside Diagnosis: 1. Seizure-like activity, acute 2. Altered mental status/postictal state, acute 3. Lactic acidosis, acute 4. Hypokalemia, acute 5. Chronic kidney disease 6. Lower lip laceration, acute Disposition: Admission Garfield Munguia DO Emergency Medicine Past Med/Surg History Medical History (Updated 02/03/23 @ 00:18 by Garfield Munguia DO) detention resident Currently residing at [facility] in [place] Muscle weakness (generalized) Nutritional deficiency Metabolic encephalopathy Critical illness myopathy Pressure ulcer of sacral region Diarrhea Anemia Dysphagia Essential (primary) hypertension Insomnia Hyperlipidemia Atherosclerotic heart disease Aspiration pneumonitis Pulmonary aspergillosis COPD with emphysema Perforated gastric ulcer Depression Coronary artery disease Surgical History (Updated 12/02/22 @ 11:34 by Tiffany Kramer RN) History of esophagogastroduodenoscopy (12/01/22) Esophagogastroduodenoscopy, esophageal brushings(Not Applicable) - John Rivera DO History of surgery Diagnostic Laparoscopy, Placement of Jejunal Feeding Tube H/O abdominal surgery Diagnostic Laparoscopy, Repair of Perforated Gastic Ulcer, Tavo patch abdominal Washout Status post incision and drainage Incision and Drainage of Face Tooth Extraction #31 History of total hysterectomy History of cholecystectomy History of coronary artery bypass graft Family History Other Family history unknown Social History Smoking Status: Unknown if ever smoked Tobacco Type: Cigarettes Preferred Language: Uzbek Communication Ability: Effective Communication Ability Comment: per [facility] pt is of sound mind to sign consents 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 Required: No Beliefs That Will Affect Care: None Current Living Situation: Personal Care Facility Current Living Situation Comment: resides at [facility] Feels Safe at Home: Yes Allergies Allergies Allergy/AdvReac Type Severity Reaction Status Date / Time dorzolamide Allergy Intermediate Itchy, Verified 02/02/23 23:12 redness, irritated eyes iodine Allergy Intermediate Rash Verified 02/02/23 23:12 latex Allergy Intermediate Rash Verified 02/02/23 23:12 tositumomab iodine-131 Allergy Unknown Unknown Verified 02/02/23 23:12 Home Meds Home Medications Medication Instructions Recorded Confirmed acetaminophen 325 mg tablet 650 mg PO Q6 PRN Fever Or Pain 02/02/23 02/02/23 (Tylenol) atorvastatin 80 mg tablet 80 mg PO HS 02/02/23 02/02/23 calcium carbonate 1,000 mg tablet 1,250 mg PO DAILY 02/02/23 02/02/23 cholecalciferol (vitamin D3) 125 125 mcg PO DAILY 02/02/23 02/02/23 mcg (5,000 unit) tablet (Vitamin D3) dronabinol 5 mg capsule 5 mg PO DAILY 02/02/23 02/02/23 ferrous sulfate 325 mg (65 mg 325 mg PO DAILY 02/02/23 02/02/23 iron) tablet folic acid 1 mg tablet 1 mg PO DAILY 02/02/23 02/02/23 latanoprost 0.005 % eye drops 1 drp OPB HS 02/02/23 02/02/23 magnesium chloride 64 mg 64 mg PO DAILY 02/02/23 02/02/23 (magnesium chloride) tablet melatonin 3 mg tablet 3 mg PO HS 02/02/23 02/02/23 metoclopramide HCl 5 mg tablet 5 mg PO TID 02/02/23 02/02/23 metoprolol tartrate 25 mg tablet 25 mg PO Q12 02/02/23 02/02/23 mirtazapine 15 mg tablet 15 mg PO HS 02/02/23 02/02/23 nitroglycerin 0.4 mg sublingual 0.4 mg sublingual DIRECTED PRN 02/02/23 02/02/23 tablet (Nitrostat) Chest Pain ondansetron HCl 4 mg tablet 4 mg PO Q4 PRN Nausea 02/02/23 02/02/23 pantoprazole 40 mg tablet,delayed 40 mg PO BID 02/02/23 02/02/23 release potassium chloride 10 mEq 10 meq PO DAILY 02/02/23 02/02/23 tablet,extended release sertraline 50 mg tablet (Zoloft) 50 mg PO DAILY 02/02/23 02/02/23 timolol maleate 0.5 % eye drops 1 drp OPB DAILY 02/02/23 02/02/23 Results & Data (ED) Vital Signs Vital Signs - 24 hr 02/02/23 21:29 02/02/23 21:57 02/02/23 21:58 Temperature Temperature Source Pulse Rate 111 H 105 H Pulse Rate [Apical] 97 H Pulse Rate from SpO2 Sensor 104 H Pulse Rhythm Respiratory Rate 28 H 33 H Respiratory Effort / Characteristics Respiratory Depth Normal Respiratory Pattern Blood Pressure 126/83 Blood Pressure [Right Arm] 132/89 Blood Pressure Mean 97 Blood Pressure Mean [Right Arm] 103 Blood Pressure Position Pulse Oximetry 99 99 Oxygen Delivery Method Nasal Cannula Oxygen Flow Rate 6 Sepsis Recent Fever Within 48 Hours Sepsis New/Unexplained Change in Mental Status Sepsis Action Taken by Nursing 02/02/23 22:03 02/02/23 22:15 02/02/23 22:30 Temperature 36.9 C Temperature Source Oral Pulse Rate 97 H 89 Pulse Rate [Apical] Pulse Rate from SpO2 Sensor 89 Pulse Rhythm Irregular Respiratory Rate 32 H Respiratory Effort / Characteristics Short of Breath Respiratory Depth Normal Respiratory Pattern Tachypnea Blood Pressure 132/89 110/72 Blood Pressure [Right Arm] Blood Pressure Mean 103 84 Blood Pressure Mean [Right Arm] Blood Pressure Position Sitting Pulse Oximetry 100 88 L 96 Oxygen Delivery Method Nasal Cannula Room Air Oxygen Flow Rate 6 Sepsis Recent Fever Within 48 Hours No Sepsis New/Unexplained Change in Mental Status No Sepsis Action Taken by Nursing No Action Required 02/02/23 22:40 Temperature Temperature Source Pulse Rate 86 Pulse Rate [Apical] Pulse Rate from SpO2 Sensor 86 Pulse Rhythm Respiratory Rate 24 Respiratory Effort / Characteristics Respiratory Depth Respiratory Pattern Blood Pressure Blood Pressure [Right Arm] Blood Pressure Mean Blood Pressure Mean [Right Arm] Blood Pressure Position Pulse Oximetry 93 Oxygen Delivery Method Nasal Cannula Oxygen Flow Rate 2 Sepsis Recent Fever Within 48 Hours Sepsis New/Unexplained Change in Mental Status Sepsis Action Taken by Nursing Laboratory Data 02/02/23 22:03 02/02/23 22:03 Lab Results 02/02/23 02/02/23 02/02/23 Range/Units 21:56 22:03 22:06 WBC 6.48 (4.8-10.8) K/ul RBC 3.98 L (4.20-5.40) M/uL Hgb 8.5 L (12.0-16.0) g/dl POC Hgb 9.2 L (12.0-16.0) g/dl Hct 28.3 L (37.0-47.0) % POC Hct 27 L (37-47) % MCV 71.1 L (80.0-100.0) fL MCH 21.4 L (25.0-34.0) pg MCHC 30.0 L (32.0-36.0) g/dL RDW Std Deviation 43.8 (36.4-46.3) fL RDW Coeff of Aster 17.2 H (11.5-14.5) % Plt Count 293 (130-400) K/uL MPV 10.5 (9.4-12.4) fL Immature Gran % (Auto) 0.5 % Neut % (Auto) 58.0 % Lymph % (Auto) 20.5 % Pender % (Auto) 17.6 % Eos % (Auto) 3.1 % Baso % (Auto) 0.3 % Neut # (Auto) 3.76 (1.40-6.50) K/uL Lymph # (Auto) 1.33 (1.20-3.40) K/uL Pender # (Auto) 1.14 H (0.11-0.59) K/uL Eos # (Auto) 0.20 (0.00-0.50) K/uL Baso # (Auto) 0.02 (0.00-0.20) K/uL Immature Gran # (Auto) 0.03 (0.01-0.20) K/uL PT 10.9 (9.0-12.0) Seconds INR 1.0 (0.9-1.1) APTT 22 (21-31) Seconds PTT Ratio 0.8 POC Sodium 134 L (135-144) mmol/L Sodium 133 L (136-145) mmol/L POC Potassium 3.2 L (3.3-5.0) mmol/L Potassium 3.2 L (3.5-5.1) mmol/L POC Chloride 97 L (101-112) mmol/L Chloride 96 L (98-107) mmol/L Carbon Dioxide 24 (21-32) mmol/L POC Total CO2 24 (24-31) mmol/L Anion Gap 13 H (3-11) POC Anion Gap 17.0 (16-25) mmol/L POC BUN 42 H (7-18) mg/dl BUN 50 H (6-23) mg/dl Creatinine 2.28 H (0.6-1.2) mg/dl POC Creatinine 2.4 H (0.6-1.3) mg/dl Est Cr Clr Drug Dosing 17.8 ml/min Est GFR ( Amer) 23.2 ml/min Est GFR (Non-Af Amer) 20.0 ml/min BUN/Creatinine Ratio 21.9 H (10-20) Glucose 120 H (70-99(Fasting)) mg/dl POC Glucose 132 H (70-99) mg/dl POC Glucose (other) 122 H (70-99) mg/dl Lactate 5.9 H* (0.4-2.0) mmol/L Calcium 11.4 H (8.6-10.3) mg/dl POC Ioniz Calcium Sharda 1.44 H (1.12-1.32) mmol/l Magnesium 2.1 (1.7-2.4) mg/dl Total Bilirubin 0.3 (0.2-1.0) mg/dl AST 44 H (13-39) U/L ALT 23 (7-52) U/L Alkaline Phosphatase 106 H (34-104) U/L Troponin I High Sens 20.9 H (0-14) pg/ml Total Protein 7.4 (6.0-8.3) gm/dl Albumin 3.6 (3.4-5.0) gm/dl Globulin 3.8 (2.5-4.0) gm/dl Albumin/Globulin Ratio 0.9 (0.9-2) Lipase 76 (11-82) U/L Administered Medications Discontinued Medications Levetiracetam 2,000 mg/ Sodium (Chloride) 270 mls @ 999 mls/hr IV NOW STA Stop: 02/02/23 22:20 Last Admin: 02/02/23 22:28 Dose: 953 mls/hr Documented By: Sodium Chloride (Nss) 1,000 mls @ 999 mls/hr IV .Q1H1M ONE Stop: 02/02/23 23:04 Last Admin: 02/02/23 22:15 Dose: 999 mls/hr Documented By: FABIAN Sodium Chloride (Nss) 1,000 mls @ 999 mls/hr IV .Q1H1M ONE Stop: 02/02/23 23:51 Last Admin: 02/02/23 23:59 Dose: 999 mls/hr Documented By: SABINA Imaging Data Radiologist's Impression: Head CT 02/02/23 21:43 CR Exam(s): CT HEAD Without Contrast EXAM: CT Head Without Intravenous Contrast CLINICAL HISTORY: Reason for exam: sz. TECHNIQUE: Axial computed tomography images of the head/brain without intravenous contrast. CTDI is 35.79 mGy and DLP is 546.36 mGy-cm. Automated exposure control was utilized for the study. A dose lowering technique was utilized adhering to the principles of ALARA. Mild motion artifact. COMPARISON: Head CT 09/23/22. FINDINGS: Brain: No mass effect or acute infarct. No acute hemorrhage. Mild atrophy and chronic white matter disease, stable. Ventricles: No hydrocephalus or midline shift. Bones/joints: No skull fracture. Soft tissues: No scalp hematoma. Sinuses: Stable, opacified left sphenoid, otherwise, clear. Mastoid air cells: Progressive, mild left mastoid effusion. Right side clear. IMPRESSION: 1. Mild progressive left mastoid effusion. 2. Stable age-related findings. 3. No acute infarct, bleed, or acute intracranial abnormality. Communications: Call Doctor Stroke Electronically signed by: Nancy Brothers M.D. 02/02/23 22:03 PM Abdomen/Pelvis CT 02/02/23 21:44 Exam(s): CT ABDOMEN + PELVIS Without Contrast EXAM: CT Abdomen and Pelvis Without Intravenous Contrast CLINICAL HISTORY: Reason for exam: vomiting. TECHNIQUE: Axial computed tomography images of the abdomen and pelvis without intravenous contrast. CTDI is 13.89 mGy and DLP is 601.46 mGy-cm. Automated exposure control was utilized for the study. A dose lowering technique was utilized adhering to the principles of ALARA. Mild motion artifact. COMPARISON: None. FINDINGS: Lung bases: See separately dictated chest CT. Liver: Unremarkable. Gallbladder and bile ducts: No ductal dilation. Pancreas: No ductal dilation. Spleen: Unremarkable. Adrenals: Unremarkable. Kidneys and ureters: No stones or hydronephrosis. Stomach and bowel: Diverticulosis and severe fecal loading of the colon, with retained barium distally. No acute diverticulosis. No obstruction. Appendix: Normal. Intraperitoneal space: No free air or fluid. Bones/joints: Nonunited fracture left symphysis. Probable healing left sacral fracture. Osteoporosis. Degenerative and postsurgical change at L4-5. No acute fracture. Soft tissues: Unremarkable. Vasculature: Severe atherosclerosis. No aortic aneurysm. Lymph nodes: No enlarged lymph nodes. Bladder: No stones. Reproductive: Unremarkable as visualized. IMPRESSION: 1. Nonunited fracture of the left pubic symphysis. 2. Probable healing left sacral fracture. 3. Severe fecal loading of the colon. 4. No SBO, free air or free fluid. Electronically signed by: Nancy Brothers M.D. 02/02/23 22:[address] 02/02/23 21:44 Exam(s): CT CHEST Without Contrast EXAM: CT Chest Without Intravenous Contrast CLINICAL HISTORY: Reason for exam: aspiration? TECHNIQUE: Axial computed tomography images of the chest without intravenous contrast. CTDI is 11.45 mGy and DLP is 375.36 mGy-cm. Automated exposure control was utilized for the study. A dose lowering technique was utilized adhering to the principles of ALARA. Mild to moderate breathing motion artifact. COMPARISON: Chest CT 10/05/22. FINDINGS: Lungs: Grossly clear. Emphysema or senescent change. No consolidation. Pulmonary arteries: No engorgement. Aorta: Severe atherosclerosis. No thoracic aortic aneurysm. Pleural space: No effusion. Previously noted pleural effusions have resolved. No pneumothorax. Heart: No cardiomegaly. No significant pericardial effusion. Bones/joints: No acute fracture. Soft tissues: Stable moderate hiatal hernia. Lymph nodes: No enlarged lymph nodes. IMPRESSION: 1. Stable hiatal hernia. 2. Lungs are now clear. Electronically signed by: Nancy Brothers M.D. 02/02/23 22:15 PM Discharge Plan Visit Data Chief Complaint: Stroke Alert Stated Complaint: SEIZURE LIKE ACTIVITY ?ASPIRATION ED Provider: Garfield Munguia Discharge Problem: Seizure-like activity Forms Stand Alone Forms: [facility] Prescriptions Prescriptions: No Action latanoprost 0.005 % drops 1 drp OPB HS atorvastatin 80 mg tablet 80 mg PO HS acetaminophen [Tylenol] 325 mg Tablet 650 mg PO Q6 PRN (Reason: Fever Or Pain) dronabinol 5 mg Capsule 5 mg PO DAILY ondansetron HCl 4 mg Tablet 4 mg PO Q4 PRN (Reason: Nausea) potassium chloride 10 mEq Tablet Extended Release 10 meq PO DAILY melatonin 3 mg Tablet 3 mg PO HS metoclopramide HCl 5 mg Tablet 5 mg PO TID pantoprazole 40 mg tablet,delayed release (DR/EC) 40 mg PO BID ferrous sulfate 325 mg (65 mg iron) Tablet 325 mg PO DAILY nitroglycerin [Nitrostat] 0.4 mg Tablet, Sublingual 0.4 mg sublingual DIRECTED PRN (Reason: Chest Pain) folic acid 1 mg Tablet 1 mg PO DAILY mirtazapine 15 mg Tablet 15 mg PO HS timolol maleate 0.5 % drops 1 drp OPB DAILY sertraline [Zoloft] 50 mg Tablet 50 mg PO DAILY calcium carbonate 1,000 mg Tablet 1,250 mg PO DAILY metoprolol tartrate 25 mg Tablet 25 mg PO Q12 cholecalciferol (vitamin D3) [Vitamin D3] 125 mcg (5,000 unit) Tablet 125 mcg PO DAILY magnesium chloride 64 mg magnesium Tablet 64 mg PO DAILY Referrals Referrals: Julisa Brown, [Primary Care Provider] -
[2023-02-02] MEDS ORDERED: SODIUM CHLORIDE 0.9% 1,000 ML IV ONE ×2 (22:04→22:51)
--- NOTE | 2023-02-02 22:16 | CT Scan Report ---
Exam(s): CT CHEST Without Contrast EXAM: CT Chest Without Intravenous Contrast CLINICAL HISTORY: Reason for exam: aspiration? TECHNIQUE: Axial computed tomography images of the chest without intravenous contrast. CTDI is 11.45 mGy and DLP is 375.36 mGy-cm. Automated exposure control was utilized for the study. A dose lowering technique was utilized adhering to the principles of ALARA. Mild to moderate breathing motion artifact. COMPARISON: Chest CT 10/05/22. FINDINGS: Lungs: Grossly clear. Emphysema or senescent change. No consolidation. Pulmonary arteries: No engorgement. Aorta: Severe atherosclerosis. No thoracic aortic aneurysm. Pleural space: No effusion. Previously noted pleural effusions have resolved. No pneumothorax. Heart: No cardiomegaly. No significant pericardial effusion. Bones/joints: No acute fracture. Soft tissues: Stable moderate hiatal hernia. Lymph nodes: No enlarged lymph nodes. IMPRESSION: 1. Stable hiatal hernia. 2. Lungs are now clear. Electronically signed by: Nancy Brothers M.D. 02/02/23 22:15 PM
[2023-02-02 22:19] LABS: Basophils # (auto) 0.02 K/uL (0.00-0.20); Basophils % (auto) 0.3 %; Eosinophils % (auto) 3.1 %; Hematocrit (blood only) 28.3 % (37.0-47.0); Hemoglobin 8.5 g/dl (12.0-16.0); Immature Granulocytes # (auto) 0.03 K/uL (0.01-0.20); Immature Granulocytes % (auto) 0.5 %; Lymphocytes # (auto) 1.33 K/uL (1.20-3.40); Lymphocytes % (auto) 20.5 %; Mean Corpuscular Hemoglobin 21.4 pg (25.0-34.0); Mean Corpuscular Volume 71.1 fL (80.0-100.0); Mean Platelet Volume 10.5 fL (9.4-12.4); Monocytes # (auto) 1.14 K/uL (0.11-0.59); Monocytes % (auto) 17.6 %; Neutrophils # (auto) 3.76 K/uL (1.40-6.50); Platelet Count 293 K/uL (130-400); RDW Coefficient of Variation 17.2 % (11.5-14.5); RDW Standard Deviation 43.8 fL (36.4-46.3); Red Blood Count 3.98 M/uL (4.20-5.40); White Blood Count 6.48 K/ul (4.8-10.8)
[2023-02-02 22:20] LABS: iSTAT Creatinine 2.4 mg/dl (0.6-1.3); iSTAT Hemoglobin 9.2 g/dl (12.0-16.0); iSTAT Ionized Calcium 1.44 mmol/l (1.12-1.32); iSTAT Potassium 3.2 mmol/L (3.3-5.0)
--- NOTE | 2023-02-02 22:23 | CT Scan Report ---
Exam(s): CT ABDOMEN + PELVIS Without Contrast EXAM: CT Abdomen and Pelvis Without Intravenous Contrast CLINICAL HISTORY: Reason for exam: vomiting. TECHNIQUE: Axial computed tomography images of the abdomen and pelvis without intravenous contrast. CTDI is 13.89 mGy and DLP is 601.46 mGy-cm. Automated exposure control was utilized for the study. A dose lowering technique was utilized adhering to the principles of ALARA. Mild motion artifact. COMPARISON: None. FINDINGS: Lung bases: See separately dictated chest CT. Liver: Unremarkable. Gallbladder and bile ducts: No ductal dilation. Pancreas: No ductal dilation. Spleen: Unremarkable. Adrenals: Unremarkable. Kidneys and ureters: No stones or hydronephrosis. Stomach and bowel: Diverticulosis and severe fecal loading of the colon, with retained barium distally. No acute diverticulosis. No obstruction. Appendix: Normal. Intraperitoneal space: No free air or fluid. Bones/joints: Nonunited fracture left symphysis. Probable healing left sacral fracture. Osteoporosis. Degenerative and postsurgical change at L4-5. No acute fracture. Soft tissues: Unremarkable. Vasculature: Severe atherosclerosis. No aortic aneurysm. Lymph nodes: No enlarged lymph nodes. Bladder: No stones. Reproductive: Unremarkable as visualized. IMPRESSION: 1. Nonunited fracture of the left pubic symphysis. 2. Probable healing left sacral fracture. 3. Severe fecal loading of the colon. 4. No SBO, free air or free fluid. Electronically signed by: Nancy Brothers M.D. 02/02/23 22:22 PM
[2023-02-02 22:34] LABS: Albumin Globulin Ratio 0.9 (0.9-2); Albumin Level 3.6 gm/dl (3.4-5.0); BUN Creatinine Ratio 21.9 (10-20); Bilirubin,Total 0.3 mg/dl (0.2-1.0); Calcium 11.4 mg/dl (8.6-10.3); Creatinine Clr Calc Pharmacy 17.8 ml/min; Est GFR (African American) 23.2 ml/min; Globulin 3.8 gm/dl (2.5-4.0); Magnesium 2.1 mg/dl (1.7-2.4); Potassium 3.2 mmol/L (3.5-5.1); Total Protein 7.4 gm/dl (6.0-8.3)
[2023-02-02 22:41] LABS: Troponin I High Sensitivity 20.9 pg/ml (0-14)
[2023-02-02 22:46] LABS: Partial Thromboplastin Ratio 0.8; Partial Thromboplastin Time 22 Seconds (21-31); Prothrombin Time 10.9 Seconds (9.0-12.0)
[2023-02-02] MEDS ORDERED: SODIUM CHLOR 0.45% + 20MEQ KCL 20 MEQ/1,000 ML BAG IV SCH (23:15)
--- NOTE | 2023-02-03 01:19 | History & Physical Report ---
Date of Service February 03, 2023 Assessment & Plan (1) Seizure-like activity: Plan: 77-year-old male with past med history significant for SIADH, CAD, s/p CABG, hypertension GERD, primary open-angle glaucoma, iron deficiency anemia, depression, history of DVT, patient had prolonged hospital stay in September and October 2022 with perforated gastric ulcer and had diagnostic laparoscopy and repair of gastric ulcer on September 17, 2022. Treated with IV antibiotics. And also she underwent right abdominal pigtail catheter on September 28, 2022 by IR and was removed after minimal output. Patient again had IR drain placement in right upper abdominal October 11, 2022 per surgery recommendation and subsequently was taken out. At the time she was also in ICU for aspiration pneumonia and severe sepsis septic shock.She also had G-tube placement. Patient was discharged to [facility] residential. Patient currently eats but she also gets 50 mill per hour for 12 hours of tube feeds. Currently not doing much in PT. Patient was brought in from residential because of seizure-like activity around 7:30 PM. She witnessed seizure at residential. Currently seems postictal. Imaging studies are okay in the ER. Sodium 133, potassium 3.2, creatinine 2.2 and lactic acid came at 5.9 and calcium 11.4. Patient currently very drowsy. Grimaces with painful stimuli. Moves extremities on painful stimuli. Hemodynamically stable. Confirmed with the daughter the patient is DNR. As per residential no recent fevers. No recent cough. As per residential had 1 episode of vomiting yesterday. No diarrhea. Otherwise she is alert and oriented as per residential. As per daughter sometimes her cognitive status is not a great. Seizure-like activity Imaging studies are okay Received IV Keppra in the ER Will continue IV Keppra 500mg twice daily. and IV Ativan as needed Seizure precautions EEG Neuroconsult in a.m. 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 Seems also eats DVT prophylaxis SCDs for now Disposition Telemetry floor CODE STATUS DNR/DNI Addendum: Am labs Hb dropped to 6.6.There was question of hematemesis when patient presented to ER. There seems some blood in mouth on presentation thought of biting of tounge from seizures. As hb dropped probably hematemesis. Will also repeat ct abd/pelvis as she had hx of gastric perforation. Got Blood consent on phone from Her daughter Miss.Kelly Epperson.Staring on Protonix drip and ordered two units prbc. GI consult. History of Present Illness Chief Complaint: Seizures Primary Care Provider: Julisa Brown DO 77-year-old male with past med history significant for SIADH, CAD, s/p CABG, hypertension GERD, primary open-angle glaucoma, iron deficiency anemia, depression, history of DVT, patient had prolonged hospital stay in September and October 2022 with perforated gastric ulcer and had diagnostic laparoscopy and repair of gastric ulcer on September 17, 2022. Treated with IV antibiotics. And also she underwent right abdominal pigtail catheter on September 28, 2022 by IR and was removed after minimal output. Patient again had IR drain placement in right upper abdominal October 11, 2022 per surgery recommendation and subsequently was taken out. At the time she was also in ICU for aspiration pneumonia and severe sepsis septic shock.She also had G-tube placement. Patient was discharged to [facility] residential. Patient currently eats but she also gets 50 mill per hour for 12 hours of tube feeds. Currently not doing much in PT. Patient was brought in from residential because of seizure-like activity around 7:30 PM. She witnessed seizure at residential. Currently seems postictal. Imaging studies are okay in the ER. Sodium 133, potassium 3.2, creatinine 2.2 and lactic acid came at 5.9 and calcium 11.4. Patient currently very drowsy. Grimaces with painful stimuli. Moves extremities on painful st imuli. Hemodynamically stable. Confirmed with the daughter the patient is DNR. As per residential no recent fevers. No recent cough. As per residential had 1 episode of vomiting yesterday. No diarrhea. Otherwise she is alert and oriented as per residential. As per daughter sometimes her cognitive status is not a great. Past medical history. As mentioned above Past surgical history. Bilateral breast biopsy. Bilateral cataract surgery. Tooth abscess removal and drainage. Hiatal hernia repair. Injection of lumbosacral spine. Cervical laminectomy. Lumbar laminectomy. Laparoscopic cholecystectomy with cholangiography. Sacroiliac joint injection. Laparoscopic ruptured gastric ulcer repair. Social history. Currently at her side. Former smoker. Alcohol 1 glass of wine a day. No drug use. Family history. No family history on file Allergies Allergy/AdvReac Type Severity Reaction Status Date / Time dorzolamide Allergy Intermediate Itchy, Verified 02/02/23 23:12 redness, irritated eyes iodine Allergy Intermediate Rash Verified 02/02/23 23:12 latex Allergy Intermediate Rash Verified 02/02/23 23:12 tositumomab iodine-131 Allergy Unknown Unknown Verified 02/02/23 23:12 Home Medications Medication Instructions Recorded Confirmed Type acetaminophen 325 mg tablet 650 mg PO Q6 PRN Fever Or Pain 02/02/23 02/02/23 History (Tylenol) atorvastatin 80 mg tablet 80 mg PO HS 02/02/23 02/02/23 History calcium carbonate 1,000 mg tablet 1,250 mg PO DAILY 02/02/23 02/02/23 History cholecalciferol (vitamin D3) 125 125 mcg PO DAILY 02/02/23 02/02/23 History mcg (5,000 unit) tablet (Vitamin D3) dronabinol 5 mg capsule 5 mg PO DAILY 02/02/23 02/02/23 History ferrous sulfate 325 mg (65 mg 325 mg PO DAILY 02/02/23 02/02/23 History iron) tablet folic acid 1 mg tablet 1 mg PO DAILY 02/02/23 02/02/23 History latanoprost 0.005 % eye drops 1 drp OPB HS 02/02/23 02/02/23 History magnesium chloride 64 mg 64 mg PO DAILY 02/02/23 02/02/23 History (magnesium chloride) tablet melatonin 3 mg tablet 3 mg PO HS 02/02/23 02/02/23 History metoclopramide HCl 5 mg tablet 5 mg PO TID 02/02/23 02/02/23 History metoprolol tartrate 25 mg tablet 25 mg PO Q12 02/02/23 02/02/23 History mirtazapine 15 mg tablet 15 mg PO HS 02/02/23 02/02/23 History nitroglycerin 0.4 mg sublingual 0.4 mg sublingual DIRECTED PRN 02/02/23 02/02/23 History tablet (Nitrostat) Chest Pain ondansetron HCl 4 mg tablet 4 mg PO Q4 PRN Nausea 02/02/23 02/02/23 History pantoprazole 40 mg tablet,delayed 40 mg PO BID 02/02/23 02/02/23 History release potassium chloride 10 mEq 10 meq PO DAILY 02/02/23 02/02/23 History tablet,extended release sertraline 50 mg tablet (Zoloft) 50 mg PO DAILY 02/02/23 02/02/23 History timolol maleate 0.5 % eye drops 1 drp OPB DAILY 02/02/23 02/02/23 History Past Med/Surg History Medical History (Updated 02/03/23 @ 00:18 by Garfield Munguia DO) care home resident Currently residing at [facility] in [place] Muscle weakness (generalized) Nutritional deficiency Metabolic encephalopathy Critical illness myopathy Pressure ulcer of sacral region Diarrhea Anemia Dysphagia Essential (primary) hypertension Insomnia Hyperlipidemia Atherosclerotic heart disease Aspiration pneumonitis Pulmonary aspergillosis COPD with emphysema Perforated gastric ulcer Depression Coronary artery disease Surgical History (Updated 12/02/22 @ 11:34 by Tiffany Kramer RN) History of esophagogastroduodenoscopy (12/01/22) Esophagogastroduodenoscopy, esophageal brushings(Not Applicable) - John Rivera DO History of surgery Diagnostic Laparoscopy, Placement of Jejunal Feeding Tube H/O abdominal surgery Diagnostic Laparoscopy, Repair of Perforated Gastic Ulcer, Tavo patch abdominal Washout Status post incision and drainage Incision and Drainage of Face Tooth Extraction #31 History of total hysterectomy History of cholecystectomy History of coronary artery bypass graft Family History Other Family history unknown Social History Smoking Status: Unknown if ever smoked Tobacco Type: Cigarettes Preferred Language: Tajik Communication Ability: Impaired Communication Ability Comment: per Moscadelmar pt is of sound mind to sign consents General Internist And Physician Leader Required: No Beliefs That Will Affect Care: None Current Living Situation: Care Home and Personal Care Facility Current Living Situation Comment: [facility] Other Information That Helps Us Care for You: No Feels Safe at Home: Yes Review of Systems Review of Systems: All systems reviewed & are unremarkable except as noted in HPI & below Physical Exam Physical Exam: General- very drowsy Head- atraumatic Eyes- PERRL. Neck- no JVD. Lungs- clear to auscultation no wheezing or crackles. Heart- regular rhythm; no murmur, no gallop. Abdomen- normal bowel sounds, soft, no distension. Extremities- no pretibial edema, no erythema seen. Neuro- very drowsy. moves extremities on painful stimuli Skin- warm & dry Results & Data Results & Data Vital Signs (Past 12 Hours) Vital Signs Temp Pulse Pulse Resp BP BP Pulse Ox 02/03/23 01:00 99/68 L 02/03/23 01:00 74 20 98 02/03/23 00:50 82 22 100 02/03/23 00:40 75 20 02/03/23 00:39 73 02/03/23 00:30 81 20 02/03/23 00:30 127/83 02/03/23 00:26 80 21 02/03/23 00:26 105/54 L 02/03/23 00:20 89 20 02/03/23 00:10 80 19 99 02/03/23 00:00 81/60 L 02/03/23 00:00 80 21 97 02/02/23 23:57 76 22 98 02/02/23 23:57 99/60 L 02/02/23 23:56 87/49 L 02/02/23 23:56 81 19 98 02/02/23 23:50 75 20 99 02/02/23 23:41 86 25 H 98 02/02/23 23:30 105/57 L 02/02/23 23:30 77 22 99 02/02/23 23:29 02/02/23 23:20 85 21 99 02/02/23 23:10 76 23 97 02/02/23 23:05 129/82 02/02/23 23:05 84 19 02/02/23 22:50 90 33 H 98 02/02/23 22:40 86 24 93 02/02/23 22:30 89 110/72 96 02/02/23 22:15 88 L 02/02/23 22:03 36.9 C 97 H 32 H 132/89 100 02/02/23 21:58 105 H 33 H 126/83 99 02/02/23 21:57 111 H 02/02/23 21:29 97 H 28 H 132/89 99 O2 Del Method O2 Flow Rate 02/03/23 01:00 02/03/23 01:00 02/03/23 00:50 02/03/23 00:40 02/03/23 00:39 02/03/23 00:30 02/03/23 00:30 02/03/23 00:26 02/03/23 00:26 02/03/23 00:20 02/03/23 00:10 02/03/23 00:00 02/03/23 00:00 02/02/23 23:57 02/02/23 23:57 Nasal Cannula 2 02/02/23 23:56 02/02/23 23:56 02/02/23 23:50 02/02/23 23:41 02/02/23 23:30 02/02/23 23:30 02/02/23 23:29 Nasal Cannula 02/02/23 23:20 02/02/23 23:10 02/02/23 23:05 02/02/23 23:05 02/02/23 22:50 02/02/23 22:40 Nasal Cannula 2 02/02/23 22:30 02/02/23 22:15 Room Air 02/02/23 22:03 Nasal Cannula 6 02/02/23 21:58 02/02/23 21:57 02/02/23 21:29 Nasal Cannula 6 Diagnostic Findings Laboratory Results WBC 6.48 K/ul (4.8-10.8) 02/02/23 22:03 RBC 3.98 M/uL (4.20-5.40) L 02/02/23 22:03 Hgb 8.5 g/dl (12.0-16.0) L 02/02/23 22:03 POC Hgb 9.2 g/dl (12.0-16.0) L 02/02/23 22:06 Hct 28.3 % (37.0-47.0) L 02/02/23 22:03 POC Hct 27 % (37-47) L 02/02/23 22:06 MCV 71.1 fL (80.0-100.0) L 02/02/23 22:03 MCH 21.4 pg (25.0-34.0) L 02/02/23 22:03 MCHC 30.0 g/dL (32.0-36.0) L 02/02/23 22:03 RDW Std Deviation 43.8 fL (36.4-46.3) 02/02/23 22:03 RDW Coeff of Aster 17.2 % (11.5-14.5) H 02/02/23 22:03 Plt Count 293 K/uL (130-400) 02/02/23 22:03 MPV 10.5 fL (9.4-12.4) 02/02/23 22:03 Immature Gran % (Auto) 0.5 % 02/02/23 22:03 Neut % (Auto) 58.0 % 02/02/23 22:03 Lymph % (Auto) 20.5 % 02/02/23 22:03 [place] % (Auto) 17.6 % 02/02/23 22:03 Eos % (Auto) 3.1 % 02/02/23 22:03 Baso % (Auto) 0.3 % 02/02/23 22:03 Neut # (Auto) 3.76 K/uL (1.40-6.50) 02/02/23 22:03 Lymph # (Auto) 1.33 K/uL (1.20-3.40) 02/02/23 22:03 [place] # (Auto) 1.14 K/uL (0.11-0.59) H 02/02/23 22:03 Eos # (Auto) 0.20 K/uL (0.00-0.50) 02/02/23 22:03 Baso # (Auto) 0.02 K/uL (0.00-0.20) 02/02/23 22:03 Immature Gran # (Auto) 0.03 K/uL (0.01-0.20) 02/02/23 22:03 PT 10.9 Seconds (9.0-12.0) 02/02/23 22:03 INR 1.0 (0.9-1.1) 02/02/23 22:03 APTT 22 Seconds (21-31) 02/02/23 22:03 PTT Ratio 0.8 02/02/23 22: POC Sodium 134 mmol/L (135-144) L 02/02/23 22:06 Sodium 133 mmol/L (136-145) L 02/02/23 22:03 POC Potassium 3.2 mmol/L (3.3-5.0) L 02/02/23 22:06 Potassium 3.2 mmol/L (3.5-5.1) L 02/02/23 22:03 POC Chloride 97 mmol/L (101-112) L 02/02/23 22:06 Chloride 96 mmol/L (98-107) L 02/02/23 22:03 Carbon Dioxide 24 mmol/L (21-32) 02/02/23 22:03 POC Total CO2 24 mmol/L (24-31) 02/02/23 22:06 Anion Gap 13 (3-11) H 02/02/23 22:03 POC Anion Gap 17.0 mmol/L (16-25) 02/02/23 22:06 POC BUN 42 mg/dl (7-18) H 02/02/23 22:06 BUN 50 mg/dl (6-23) H 02/02/23 22:03 Creatinine 2.28 mg/dl (0.6-1.2) H 02/02/23 22:03 POC Creatinine 2.4 mg/dl (0.6-1.3) H 02/02/23 22:06 Est Cr Clr Drug Dosing 17.8 ml/min 02/02/23 22:03 Est GFR ( Amer) 23.2 ml/min 02/02/23 22:03 Est GFR (Non-Af Amer) 20.0 ml/min 02/02/23 22:03 BUN/Creatinine Ratio 21.9 (10-20) H 02/02/23 22:03 Glucose 120 mg/dl (70-99(Fasting)) H 02/02/23 22:03 POC Glucose 132 mg/dl (70-99) H 02/02/23 21:56 POC Glucose (other) 122 mg/dl (70-99) H 02/02/23 22:06 Lactate 5.9 mmol/L (0.4-2.0) H* 02/02/23 22:03 Calcium 11.4 mg/dl (8.6-10.3) H 02/02/23 22:03 POC Ioniz Calcium Sharda 1.44 mmol/l (1.12-1.32) H 02/02/23 22:06 Magnesium 2.1 mg/dl (1.7-2.4) 02/02/23 22:03 Total Bilirubin 0.3 mg/dl (0.2-1.0) 02/02/23 22:03 AST 44 U/L (13-39) H 02/02/23 22:03 ALT 23 U/L (7-52) 02/02/23 22:03 Alkaline Phosphatase 106 U/L (34-104) H 02/02/23 22:03 Troponin I High Sens 20.9 pg/ml (0-14) H 02/02/23 22:03 Total Protein 7.4 gm/dl (6.0-8.3) 02/02/23 22:03 Albumin 3.6 gm/dl (3.4-5.0) 02/02/23 22:03 Globulin 3.8 gm/dl (2.5-4.0) 02/02/23 22:03 Albumin/Globulin Ratio 0.9 (0.9-2) 02/02/23 22:03 Lipase 76 U/L (11-82) 02/02/23 22:[address] 02/02/23 21:43 CR Exam(s): CT HEAD Without Contrast EXAM: CT Head Without Intravenous Contrast CLINICAL HISTORY: Reason for exam: sz. TECHNIQUE: Axial computed tomography images of the head/brain without intravenous contrast. CTDI is 35.79 mGy and DLP is 546.36 mGy-cm. Automated exposure control was utilized for the study. A dose lowering technique was utilized adhering to the principles of ALARA. Mild motion artifact. COMPARISON: Head CT 09/23/22. FINDINGS: Brain: No mass effect or acute infarct. No acute hemorrhage. Mild atrophy and chronic white matter disease, stable. Ventricles: No hydrocephalus or midline shift. Bones/joints: No skull fracture. Soft tissues: No scalp hematoma. Sinuses: Stable, opacified left sphenoid, otherwise, clear. Mastoid air cells: Progressive, mild left mastoid effusion. Right side clear. IMPRESSION: 1. Mild progressive left mastoid effusion. 2. Stable age-related findings. 3. No acute infarct, bleed, or acute intracranial abnormality. Communications: Call Doctor Stroke Electronically signed by: Nancy Brothers M.D. 02/02/23 22:03 PM Abdomen/Pelvis CT 02/02/23 21:44 Exam(s): CT ABDOMEN + PELVIS Without Contrast EXAM: CT Abdomen and Pelvis Without Intravenous Contrast CLINICAL HISTORY: Reason for exam: vomiting. TECHNIQUE: Axial computed tomography images of the abdomen and pelvis without intravenous contrast. CTDI is 13.89 mGy and DLP is 601.46 mGy-cm. Automated exposure control was utilized for the study. A dose lowering technique was utilized adhering to the principles of ALARA. Mild motion artifact. COMPARISON: None. FINDINGS: Lung bases: See separately dictated chest CT. Liver: Unremarkable. Gallbladder and bile ducts: No ductal dilation. Pancreas: No ductal dilation. Spleen: Unremarkable. Adrenals: Unremarkable. Kidneys and ureters: No stones or hydronephrosis. Stomach and bowel: Diverticulosis and severe fecal loading of the colon, with retained barium distally. No acute diverticulosis. No obstruction. Appendix: Normal. Intraperitoneal space: No free air or fluid. Bones/joints: Nonunited fracture left symphysis. Probable healing left sacral fracture. Osteoporosis. Degenerative and postsurgical change at L4-5. No acute fracture. Soft tissues: Unremarkable. Vasculature: Severe atherosclerosis. No aortic aneurysm. Lymph nodes: No enlarged lymph nodes. Bladder: No stones. Reproductive: Unremarkable as visualized. IMPRESSION: 1. Nonunited fracture of the left pubic symphysis. 2. Probable healing left sacral fracture. 3. Severe fecal loading of the colon. 4. No SBO, free air or free fluid. Electronically signed by: Nancy Brothers M.D. 02/02/23 22:[address] 02/02/23 21:44 Exam(s): CT CHEST Without Contrast EXAM: CT Chest Without Intravenous Contrast CLINICAL HISTORY: Reason for exam: aspiration? TECHNIQUE: Axial computed tomography images of the chest without intravenous contrast. CTDI is 11.45 mGy and DLP is 375.36 mGy-cm. Automated exposure control was utilized for the study. A dose lowering technique was utilized adhering to the principles of ALARA. Mild to moderate breathing motion artifact. COMPARISON: Chest CT 10/05/22. FINDINGS: Lungs: Grossly clear. Emphysema or senescent change. No consolidation. Pulmonary arteries: No engorgement. Aorta: Severe atherosclerosis. No thoracic aortic aneurysm. Pleural space: No effusion. Previously noted pleural effusions have resolved. No pneumothorax. Heart: No cardiomegaly. No significant pericardial effusion. Bones/joints: No acute fracture. Soft tissues: Stable moderate hiatal hernia. Lymph nodes: No enlarged lymph nodes. IMPRESSION: 1. Stable hiatal hernia. 2. Lungs are now clear. Electronically signed by: Nancy Brothers M.D. 02/02/23 22:15 PM ECG Additional Comments: ECG. Normal sinus rhythm rate of 95. No acute ST changes seen. Code Status & VTE Plan VTE Prophylaxis Plan VTE Prophylaxis will be ordered: Yes
[2023-02-03] MEDS: POTASSIUM CHLORIDE / WTR 10 MEQ/100 ML PLCT IV SCH ×4 (01:59→04:53)
[2023-02-03] MEDS ORDERED: NITROGLYCERIN SL 0.4 MG/TAB TAB SL PRN (02:28)
[2023-02-03] MEDS ORDERED: ONDANSETRON INJ 2 MG/ML 2 ML VIAL IV PRN (02:28)
[2023-02-03] MEDS ORDERED: PIPERACILLIN/TAZOBACTAM 4.5 GM in DEXTROSE 5% MINI-B 100 ML IV ONE (02:45)
[2023-02-03] MEDS: SODIUM CHLORIDE 0.9% 1,000 ML IV SCH ×3 (03:12→20:05)
[2023-02-03 04:32] LABS: Hematocrit (blood only) 21.9 % (37.0-47.0); Hemoglobin 6.8 g/dl (12.0-16.0); Mean Corpuscular Hemoglobin 21.9 pg (25.0-34.0); Mean Corpuscular Hgb Conc 31.1 g/dL (32.0-36.0); Mean Corpuscular Volume 70.6 fL (80.0-100.0); Mean Platelet Volume 10.4 fL (9.4-12.4); Platelet Count 213 K/uL (130-400); RDW Coefficient of Variation 17.2 % (11.5-14.5); RDW Standard Deviation 43.8 fL (36.4-46.3); White Blood Count 5.11 K/ul (4.8-10.8)
[2023-02-03 04:45] LABS: BUN Creatinine Ratio 22.2 (10-20); Calcium 9.6 mg/dl (8.6-10.3); Est GFR (African American) 26.7 ml/min; Est GFR (Non-African American) 23.1 ml/min; Magnesium 1.8 mg/dl (1.7-2.4); Phosphorus 3.2 mg/dl (2.5-4.9); Potassium 4.1 mmol/L (3.5-5.1)
[2023-02-03 04:47] LABS: Appearance Urine Turbid (Clear); Bacteria Urine Automated 1+ (Negative); Bilirubin Urine Negative (Negative); Blood Urine 1+ (Negative); Cast Urine Automated 0 /lpf (0-5); Color Urine Yellow; Glucose Urine UA Negative (Negative); Ketones Urine Negative (Negative); Leukocyte Esterase Urine 3+ (Negative); Nitrite Urine Negative (Negative); Protein Urine 1+ (Negative); RBC Urine Automated 0-4 /hpf (0-4); Specific Gravity Urine 1.012 (1.000-1.030); Urobilinogen Urine Negative (Negative); WBC Urine Automated >30 /hpf (0-5); pH Urine 6.5 (4.5-7.5)
[2023-02-03 04:48] LABS: Basophils # (auto) 0.01 K/uL (0.00-0.20); Basophils % (auto) 0.2 %; Immature Granulocytes # (auto) 0.02 K/uL (0.01-0.20); Immature Granulocytes % (auto) 0.4 %; Lymphocytes # (auto) 0.86 K/uL (1.20-3.40); Lymphocytes % (auto) 16.8 %; Monocytes # (auto) 0.96 K/uL (0.11-0.59); Monocytes % (auto) 18.8 %; Neutrophils # (auto) 3.26 K/uL (1.40-6.50); Neutrophils % (auto) 63.8 %; Polychromasia 1+
[2023-02-03 04:53] LABS: Troponin I High Sensitivity 28.1 pg/ml (0-14)
[2023-02-03 05:27] LABS: Amphetamines+Metham, Urine Neg (Neg); Barbiturates, Urine Neg (Neg); Benzodiazepine, Urine Neg (Neg); Cocaine, Urine Neg (Neg); MDMA (Ecstacy), Urine Neg (Neg); Marijuana, Urine Pos (Neg); Methadone, Urine Neg (Neg); Opiate, Urine Neg (Neg); Phencyclidine, Urine Neg (Neg)
[2023-02-03 05:45] LABS: Hematocrit (blood only) 22.3 % (37.0-47.0); Hemoglobin 6.6 g/dl (12.0-16.0)
[2023-02-03] MEDS ORDERED: SODIUM CHLORIDE 0.9% 250 ML IV PRN (05:55)
[2023-02-03] MEDS ORDERED: PANTOPRAZOLE BOLUS/DRIP IV STA (05:55)
[2023-02-03] MEDS ORDERED: PANTOprazole 80 MG in DEXTROSE 5% 100 ML IV ONE (06:00)
--- NOTE | 2023-02-03 07:18 | XRay Report ---
XR chest 1V portable HISTORY: 77 years-old Female vomiting subcutaneous nodule with vomiting and strokelike symptoms COMPARISON: Chest radiograph 11/02/2022, CT abdomen and pelvis 02/03/2023, chest CT 02/02/2023 TECHNIQUE: AP view of the chest FINDINGS: Cardiomediastinal and hilar silhouettes are unchanged. Sternotomy wires are present. There is no pneu mothorax, pleural effusion or lobar airspace consolidation. Chronic interstitial coarsening with emph ysema. Hiatal hernia. Degenerative changes of the shoulders and spine. Healed chronic right-sided rib fractures. IMPRESSION: 1. Emphysema without acute processes of the chest. 2. Chronic right-sided rib fractures. 3. Hiatal hernia. ACT 112: Negative or not required by law. The above report was generated using voice recognition software. It may contain grammatical, syntax o r spelling errors. Electronically signed by: Angel Cullen M.D. 02/03/2023 7:17 AM
--- NOTE | 2023-02-03 07:21 | CT Scan Report ---
CT SCAN OF THE ABDOMEN AND PELVIS WITHOUT IV CONTRAST CLINICAL HISTORY: GI bleeding. History of gastric perforation and repair. COMPARISON STUDY: Prior abdominal CT scans, most recently dated 02/02/2023. TECHNIQUE: CT scan of the abdomen and pelvis is performed from the lung bases to the proximal femora. Images are reviewed in the axial, sagittal, and coronal planes. IV contrast was not administered for this examination. Note that the examination was performed and significant suboptimal fashion without oral and IV contrast. A dose lowering technique was utilized adhering to the principles of ALARA. CT DOSE: 632.07 mGy.cm FINDINGS: Lung bases: The patient is status post midline sternotomy. The heart is normal in size and without pe ricardial effusion. The coronary arteries are densely calcified. Advanced emphysematous change is see n at the lung bases. There is bibasilar scarring/atelectasis. Trace pleural effusion is noted on the right. Liver: The unenhanced liver is normal in size, contour, and attenuation. There is no intrahepatic giovanna iary ductal dilatation. Gallbladder: Surgically absent noting clips in the gallbladder fossa. Spleen: Normal in size and attenuation. Pancreas: The unenhanced pancreas is moderately atrophic and grossly unremarkable. Adrenal glands: Unremarkable. Kidneys: The unenhanced kidneys are normal in size and without hydronephrosis. No renal calculi are i dentified. Simple and complex renal cysts measure up to 14 mm. Abdominal vasculature: The abdominal aorta is normal in course and caliber noting advanced atheroscle rotic calcification. Stomach and bowel: There is a [id number] hiatal hernia. Residual enteric contrast is noted in the colon. A percutaneous jejunostomy is in place. No bowel obstruction is seen. There is advanced di verticulosis of left colon without CT evidence of acute diverticulitis. The appendix is well-visuali zed and normal. Peritoneum: No intraperitoneal free air is identified. A small amount of hyperdense material is again seen posterior to the liver and in the paracolic gutters. This is similar previous and may represent extraluminal contrast. No organized fluid collection is seen on this unenhanced examination. Lymphadenopathy: None. Pelvic viscera: The bladder is normal as visualized. The uterus is atrophic versus surgically absent. No adnexal lesion is seen. Skeletal structures: The skeletal structures are osteopenic. There is advanced lumbosacral spondylosi s. Post laminectomy changes noted in the lumbar spine. No lytic or blastic lesions are seen. There ar e bilateral sacral insufficiency fractures. There are subacute versus nonunited parasymphyseal left p ubic ring fractures. Chronic/healed right-sided rib fractures are noted. IMPRESSION: 1. Significantly suboptimal examination without oral and IV contrast. 2. A percutaneous jejunostomy is in place. No bowel obstruction is seen. 3. Hyperdense material is again seen in the abdomen and pelvis, likely representing extraluminal ente perri contrast. This is similar to prior studies. 4. Advanced emphysema. 5. Colonic diverticulosis without CT evidence of acute diverticulitis. 6. Additional findings as above. ACT 112: Negative or not required by law. Electronically signed by: Jagdish Pham M.D. 02/03/2023 7:19 AM
[2023-02-03] MEDS: TIMOLOL MALEATE 0.5% OP SOLN 5 ML BTL OP SCH (08:47)
[2023-02-03] MEDS: PANTOprazole 40 MG in DEXTROSE 5% MINI-B 100 ML IV SCH ×3 (08:57→18:00)
[2023-02-03] MEDS ORDERED: FOLIC ACID 1 MG TAB PO SCH (09:00)
[2023-02-03] MEDS ORDERED: PANTOprazole 40 MG TAB PO SCH (09:00)
[2023-02-03] MEDS ORDERED: CHOLECALCIFEROL 5,000 UNITS 125 MCG TAB PO SCH (09:00)
[2023-02-03] MEDS ORDERED: FERROUS SULFATE 325 MG TAB PO SCH (09:00)
[2023-02-03] MEDS ORDERED: POTASSIUM CHLORIDE 10 MEQ TABCR PO SCH (09:00)
[2023-02-03] MEDS ORDERED: levETIRAcetam 500 MG in SODIUM CHLOR 0.9% MINI-B 100 ML IV SCH (09:00)
[2023-02-03] MEDS ORDERED: CALCIUM CARBONATE 1250MG TAB PO SCH (09:00)
[2023-02-03] MEDS ORDERED: METOCLOPRAMIDE HCL 5 MG TABLET PO SCH (09:00)
[2023-02-03] MEDS ORDERED: MAGNESIUM CHLORIDE W/CALCIUM 64MG DELAYED REL TAB PO SCH (09:00)
[2023-02-03] MEDS ORDERED: PIPERACILLIN/TAZOBACTAM 4.5 GM in DEXTROSE 5% MINI-B 100 ML IV SCH (10:00)
[2023-02-03] MEDS: droNABinol 2.5 MG CAP PO SCH (10:56)
[2023-02-03] MEDS: METOPROLOL TARTRATE 25 MG TAB PO SCH ×2 (10:57→22:44)
[2023-02-03] MEDS: SERTRALINE HCL 50 MG TABLET PO SCH (10:57)
--- NOTE | 2023-02-03 11:07 | Gastrointestinal Consultation ---
Date of Consultation February 03, 2023 Assessment & Plan (1) Seizure-like activity: Pt is a 77 yo female who presented w seizure like activity, found to be anemic w ? hematemesis. However on exam was noted to have injury to tongue and lip likely during seizure activity. She has hx of perforated gastric ulcer s/p repair and J tube in place for feeding. CT abd/pelvis wo pneumoperitoneum. No overt GI bleeding noted. - Monitor blood ct closely after PRBC transfusion - NPO - PPI gtt for another day, then if continues to not have overt GI bleeding, can cover with PPI IV BID - Defer endoscopic evaluations especially in setting of new and recent seizure - Pls recall over weekend for questions/concerns Supervising Physician Co-Signing Physician Notes I personally saw and evaluated the patient on 02/03/2023 with HILDA Moreno and agree with her findings and plan of care. On exam patient is AAOx0 and arouses only to sternal rub. Abdomen soft and non-tender, non-distended. 77 y/o F with multiple medical co-morbidities admitted after seizure activity in her assisted for which GI was consulted for anemia and concern of GI bleeding. She has not had any overt signs of bleeding including melena, hematochezia, or hematemesis. She had a brown bowel movement charted earlier this afternoon. She does have some bleeding in her mouth from a visible tongue laceration and lower lip laceration so I suspect she bit her mouth/tongue during the seizure. She has a history of perforated gastric ulcer that was repaired in 10/2022 and she has a J tube in place since then due to poor PO intake. Her J tube was aspirated without any blood present. Hgb on admission 6.8 from baseline of ~9 in October. She received 2 units with improvement in hgb to 8.1. Would not recommend any endoscopy at this time in absence of any overt GI bleeding. She is having brown stools here. PPI 40 mg BID. Trend H/H and transfuse for hgb <7. Please let GI know if she develops any overt signs of GI bleeding otherwise GI will sign off at this time. Renetta Gimenez, DO Gastroenterology and Hepatology History of Present Illness Reason for Consultation: Anemia, ? Hematemesis Requesting Physician: Dr. Luan Shaw Attending Physician: Dr. Renetta Gimenez History of Present Illness Pt is a 77 yo female w PMHx of SIADH, CAD, s/p CABG, hypertension GERD, primary open-angle glaucoma, iron deficiency anemia, depression, history of DVT, perforated gastric ulcers s/p repair in 09/2022 then pneumonia, septic shock 10/2022 w prolonged hospital stay eventually DC'd to [facility]. She was brought in from the assisted for seizure like activity last night around 7:30PM. She is currently only responsive to painful stimuli. GI consulted as pt was noted to have n/v last night and ? hematemesis. However per ED notes, pt had hemoptysis secondary to lower lip injury. Labs reviewed - H/H 6.07/28, pt is ordered 2U PRBC transfusion, Plt 213, INR 1.0, BUN/Cr 45/2.0, mild hypokalemia, lactic acid 5.9, troponin 28. She had J tube in place for feeding. Per report has little PO intake. No blood noted in Jtube residual. She also hasn't had any hematemesis or melena overnight. CT abd/pelvis (most recently done 02/03): 1. Significantly suboptimal examination without oral and IV contrast. 2. A percutaneous jejunostomy is in place. No bowel obstruction is seen. 3. Hyperdense material is again seen in the abdomen and pelvis, likely representing extraluminal enteric contrast. This is similar to prior studies. 4. Advanced emphysema. 5. Colonic diverticulosis without CT evidence of acute diverticulitis. Allergies Allergy/AdvReac Type Severity Reaction Status Date / Time dorzolamide Allergy Intermediate Itchy, Verified 02/02/23 23:12 redness, irritated eyes iodine Allergy Intermediate Rash Verified 02/02/23 23:12 latex Allergy Intermediate Rash Verified 02/02/23 23:12 tositumomab iodine-131 Allergy Unknown Unknown Verified 02/02/23 23:12 Home Medications Medication Instructions Recorded Confirmed Type acetaminophen 325 mg tablet 650 mg PO Q6 PRN Fever Or Pain 02/02/23 02/02/23 History (Tylenol) atorvastatin 80 mg tablet 80 mg PO HS 02/02/23 02/02/23 History calcium carbonate 1,000 mg tablet 1,250 mg PO DAILY 02/02/23 02/02/23 History cholecalciferol (vitamin D3) 125 125 mcg PO DAILY 02/02/23 02/02/23 History mcg (5,000 unit) tablet (Vitamin D3) dronabinol 5 mg capsule 5 mg PO DAILY 02/02/23 02/02/23 History ferrous sulfate 325 mg (65 mg 325 mg PO DAILY 02/02/23 02/02/23 History iron) tablet folic acid 1 mg tablet 1 mg PO DAILY 02/02/23 02/02/23 History latanoprost 0.005 % eye drops 1 drp OPB HS 02/02/23 02/02/23 History magnesium chloride 64 mg 64 mg PO DAILY 02/02/23 02/02/23 History (magnesium chloride) tablet melatonin 3 mg tablet 3 mg PO HS 02/02/23 02/02/23 History metoclopramide HCl 5 mg tablet 5 mg PO TID 02/02/23 02/02/23 History metoprolol tartrate 25 mg tablet 25 mg PO Q12 02/02/23 02/02/23 History mirtazapine 15 mg tablet 15 mg PO HS 02/02/23 02/02/23 History nitroglycerin 0.4 mg sublingual 0.4 mg sublingual DIRECTED PRN 02/02/23 02/02/23 History tablet (Nitrostat) Chest Pain ondansetron HCl 4 mg tablet 4 mg PO Q4 PRN Nausea 02/02/23 02/02/23 History pantoprazole 40 mg tablet,delayed 40 mg PO BID 02/02/23 02/02/23 History release potassium chloride 10 mEq 10 meq PO DAILY 02/02/23 02/02/23 History tablet,extended release sertraline 50 mg tablet (Zoloft) 50 mg PO DAILY 02/02/23 02/02/23 History timolol maleate 0.5 % eye drops 1 drp OPB DAILY 02/02/23 02/02/23 History Patient History Medical History (Updated 02/03/23 @ 00:18 by Garfield Munguia DO) snf resident Currently residing at [facility] in [place] Muscle weakness (generalized) Nutritional deficiency Metabolic encephalopathy Critical illness myopathy Pressure ulcer of sacral region Diarrhea Anemia Dysphagia Essential (primary) hypertension Insomnia Hyperlipidemia Atherosclerotic heart disease Aspiration pneumonitis Pulmonary aspergillosis COPD with emphysema Perforated gastric ulcer Depression Coronary artery disease Surgical History (Updated 12/02/22 @ 11:34 by Tiffany Pollick, RN) History of esophagogastroduodenoscopy (12/01/22) Esophagogastroduodenoscopy, esophageal brushings(Not Applicable) - John Rivera DO History of surgery Diagnostic Laparoscopy, Placement of Jejunal Feeding Tube H/O abdominal surgery Diagnostic Laparoscopy, Repair of Perforated Gastic Ulcer, Tavo patch abdominal Washout Status post incision and drainage Incision and Drainage of Face Tooth Extraction #31 History of total hysterectomy History of cholecystectomy History of coronary artery bypass graft Family History Other Family history unknown Social History Smoking Status: Unknown if ever smoked Tobacco Type: Cigarettes Preferred Language: Citizen Of [place] Communication Ability: Impaired Communication Ability Comment: yadiel Man pt is of sound mind to sign 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 Beliefs That Will Affect Care: None Current [facility] Situation[facility] Current Living Situation Comment: [facility] Other Information That Helps Us Care for You: No Feels Safe at Home: Yes Review of Systems Review of Systems: Unobtainable due to reduced consciousness Physical Exam Constitutional: WD/WN, vitals as above comfortable Eyes: PERRL, conjunctivae normal, anicteric sclerae ENMT: external ear and nose normal, oropharynx normal Respiratory: No respiratory distress, diminished overall lung sounds Cardiovascular: RRR, no murmur, no edema Gastrointestinal (Abdomen): normal bowel sounds, soft, nontender, no hepatosplenomegaly (J tube to RUQ area ) Skin: no rashes, warm and dry Psychiatric: Responsive to painful stimuli such as sternal rub, not following commands Lymphatic: no lymphedema Results & Data Vital Signs (Past 12 Hours) Vital Signs Temp Pulse Pulse Resp BP BP Pulse Ox 02/03/23 10:31 36.5 C 71 20 111/71 100 02/03/23 10:25 71 109/58 L 100 02/03/23 10:01 36.5 C 71 18 98/55 L 100 02/03/23 09:46 36.5 C 73 20 136/70 100 02/03/23 09:44 36.5 C 73 20 136/70 100 02/03/23 09:36 36.5 C 87 18 138/80 96 02/03/23 09:25 36.4 C L 79 22 143/83 H 97 02/03/23 09:13 36.8 C 71 22 143/83 H 100 02/03/23 07:30 02/03/23 07:30 02/03/23 07:03 74 02/03/23 06:00 133/73 02/03/23 06:00 76 19 99 02/03/23 05:50 75 18 99 02/03/23 05:40 78 20 99 02/03/23 05:30 81 19 97 02/03/23 05:30 96/77 L 02/03/23 05:20 75 19 99 02/03/23 05:10 74 21 100 02/03/23 05:00 111/58 L 02/03/23 05:00 80 19 98 02/03/23 04:50 75 20 100 02/03/23 04:40 79 21 99 02/03/23 04:31 121/83 02/03/23 04:31 83 34 H 93 02/03/23 04:30 83 22 99 02/03/23 04:20 82 25 H 96 02/03/23 04:10 77 19 100 02/03/23 04:00 114/71 02/03/23 04:00 77 22 100 02/03/23 03:50 80 21 99 02/03/23 03:40 94 H 30 H 93 02/03/23 03:31 168/84 H 02/03/23 03:31 95 H 26 H 96 02/03/23 03:30 93 H 24 95 02/03/23 03:20 86 22 100 02/03/23 03:10 80 19 100 02/03/23 03:00 128/76 02/03/23 03:00 80 19 100 02/03/23 02:50 78 17 96 02/03/23 02:40 80 18 97 02/03/23 02:30 143/68 H 02/03/23 02:30 77 21 98 02/03/23 02:28 02/03/23 02:28 02/03/23 02:20 80 20 98 02/03/23 02:10 79 21 99 02/03/23 02:00 128/79 02/03/23 02:00 79 19 98 02/03/23 01:50 77 20 98 02/03/23 01:43 77 18 97 02/03/23 01:43 94/56 L 02/03/23 01:43 94/56 L 02/03/23 01:40 76 19 98 02/03/23 01:30 87/58 L 02/03/23 01:30 77 19 97 02/03/23 01:20 76 18 98 02/03/23 01:10 77 25 H 97 02/03/23 01:00 99/68 L 02/03/23 01:00 74 20 98 02/03/23 00:50 82 22 100 02/03/23 00:40 75 20 02/03/23 00:39 73 02/03/23 00:30 81 20 02/03/23 00:30 127/83 02/03/23 00:26 80 21 02/03/23 00:26 105/54 L 02/03/23 00:20 89 20 02/03/23 00:10 80 19 99 02/03/23 00:00 81/60 L 02/03/23 00:00 80 21 97 02/02/23 23:57 76 22 98 02/02/23 23:57 99/60 L 02/02/23 23:56 87/49 L 02/02/23 23:56 81 19 98 02/02/23 23:50 75 20 99 02/02/23 23:41 86 25 H 98 02/02/23 23:30 105/57 L 02/02/23 23:30 77 22 99 02/02/23 23:29 02/02/23 23:20 85 21 99 02/02/23 23:10 76 23 97 Pulse Ox O2 Del Method O2 Del Method O2 Flow Rate O2 Flow Rate 02/03/23 10:31 4 02/03/23 10:25 4 02/03/23 10:01 4 02/03/23 09:46 4 02/03/23 09:44 4 02/03/23 09:36 4 02/03/23 09:25 4 02/03/23 09:13 Oxymask 4 02/03/23 07:30 Oxymask 4 02/03/23 07:30 99 Oxymask 4 02/03/23 07:03 02/03/23 06:00 02/03/23 06:00 02/03/23 05:50 02/03/23 05:40 02/03/23 05:30 02/03/23 05:30 02/03/23 05:20 02/03/23 05:10 02/03/23 05:00 02/03/23 05:00 02/03/23 04:50 02/03/23 04:40 02/03/23 04:31 02/03/23 04:31 02/03/23 04:30 02/03/23 04:20 02/03/23 04:10 02/03/23 04:00 02/03/23 04:00 02/03/23 03:50 02/03/23 03:40 02/03/23 03:31 02/03/23 03:31 02/03/23 03:30 02/03/23 03:20 02/03/23 03:10 02/03/23 03:00 02/03/23 03:00 02/03/23 02:50 02/03/23 02:40 02/03/23 02:30 02/03/23 02:30 02/03/23 02:28 Nasal Cannula 02/03/23 02:28 97 Room Air 2 02/03/23 02:20 02/03/23 02:10 02/03/23 02:00 02/03/23 02:00 02/03/23 01:50 02/03/23 01:43 02/03/23 01:43 02/03/23 01:43 02/03/23 01:40 02/03/23 01:30 02/03/23 01:30 02/03/23 01:20 02/03/23 01:10 02/03/23 01:00 02/03/23 01:00 02/03/23 00:50 02/03/23 00:40 02/03/23 00:39 02/03/23 00:30 02/03/23 00:30 02/03/23 00:26 02/03/23 00:26 02/03/23 00:20 02/03/23 00:10 02/03/23 00:00 02/03/23 00:00 02/02/23 23:57 02/02/23 23:57 Nasal Cannula 2 02/02/23 23:56 02/02/23 23:56 02/02/23 23:50 02/02/23 23:41 02/02/23 23:30 02/02/23 23:30 02/02/23 23:29 Nasal Cannula 02/02/23 23:20 02/02/23 23:10
--- NOTE | 2023-02-03 11:08 | Electrocardiogram Report ---
Test Reason : Blood Pressure : / mmHG Vent. Rate : 095 BPM Atrial Rate : 095 BPM P-R Int : 158 ms QRS Dur : 082 ms QT Int : 344 ms P-R-T Axes : 073 038 073 degrees QTc Int : 432 ms Normal sinus rhythm Normal ECG When compared with ECG of 16-OCT-2022 16:24, ST no longer depressed in Anterior leads T wave inversion no longer evident in Anterolateral leads Confirmed by Castro Little ([id number]) on 02/03/2023 11:07:33 AM Referred By: [facility] Confirmed By:Harman Little
[2023-02-03 13:05] LABS: Hemoglobin 8.1 g/dl (12.0-16.0)
--- NOTE | 2023-02-03 16:04 | Electroencephalogram ---
EEG Procedure Note Date of Service February 03, 2023 Start / End Times Start Time: 06:13 End Time: 06:34 Referring Physician Jeff Wild History A 77 year old female with seizure. EEG performed for evaluation of epileptiform activity. Home Medication List Medication Instructions Recorded Confirmed Type acetaminophen 325 mg tablet 650 mg PO Q6 PRN Fever Or Pain 02/02/23 02/02/23 History (Tylenol) atorvastatin 80 mg tablet 80 mg PO HS 02/02/23 02/02/23 History calcium carbonate 1,000 mg tablet 1,250 mg PO DAILY 02/02/23 02/02/23 History cholecalciferol (vitamin D3) 125 125 mcg PO DAILY 02/02/23 02/02/23 History mcg (5,000 unit) tablet (Vitamin D3) dronabinol 5 mg capsule 5 mg PO DAILY 02/02/23 02/02/23 History ferrous sulfate 325 mg (65 mg 325 mg PO DAILY 02/02/23 02/02/23 History iron) tablet folic acid 1 mg tablet 1 mg PO DAILY 02/02/23 02/02/23 History latanoprost 0.005 % eye drops 1 drp OPB HS 02/02/23 02/02/23 History magnesium chloride 64 mg 64 mg PO DAILY 02/02/23 02/02/23 History (magnesium chloride) tablet melatonin 3 mg tablet 3 mg PO HS 02/02/23 02/02/23 History metoclopramide HCl 5 mg tablet 5 mg PO TID 02/02/23 02/02/23 History metoprolol tartrate 25 mg tablet 25 mg PO Q12 02/02/23 02/02/23 History mirtazapine 15 mg tablet 15 mg PO HS 02/02/23 02/02/23 History nitroglycerin 0.4 mg sublingual 0.4 mg sublingual DIRECTED PRN 02/02/23 02/02/23 History tablet (Nitrostat) Chest Pain ondansetron HCl 4 mg tablet 4 mg PO Q4 PRN Nausea 02/02/23 02/02/23 History pantoprazole 40 mg tablet,delayed 40 mg PO BID 02/02/23 02/02/23 History release potassium chloride 10 mEq 10 meq PO DAILY 02/02/23 02/02/23 History tablet,extended release sertraline 50 mg tablet (Zoloft) 50 mg PO DAILY 02/02/23 02/02/23 History timolol maleate 0.5 % eye drops 1 drp OPB DAILY 02/02/23 02/02/23 History Inpatient Medication List Dronabinol (Dronabinol 2.5 Mg Cap) 5 mg PO DAILY [facility] Stop: 03/05/23 08:59 Last Admin: 02/03/23 10:56 Dose: 5 mg Documented By: XOCHITLW Ferrous Sulfate (Ferrous Sulfate 325 Mg Tab) 325 mg PO DAILY [facility] Stop: 03/05/23 08:59 Last Admin: 02/03/23 10:57 Dose: 325 mg Documented By: XOCHITLW Folic Acid (Folic Acid 1 Mg Tab) 1 mg PO DAILY [facility] Stop: 03/05/23 08:59 Last Admin: 02/03/23 10:57 Dose: 1 mg Documented By: JUAN Sodium Chloride (Nss) 1,000 mls @ 125 mls/hr IV .Q8H [facility] Stop: 03/05/23 02:27 Last Admin: 02/03/23 14:46 Dose: 125 mls/hr Documented By: Infusion: 02/03/23 11:12 Dose: Infused Documented By: Admin: 02/03/23 03:12 Dose: 125 mls/hr Documented By: SABINA Levetiracetam 500 mg/ Sodium (Chloride) 105 mls @ 420 mls/hr IV Q12H [facility] Stop: 03/05/23 08:59 Last Infusion: 02/03/23 09:07 Dose: Infused Documented By: Admin: 02/03/23 08:50 Dose: 420 mls/hr Documented By: JUAN Piperacillin Sod/Tazobactam (Sod 4.5 gm/ Dextrose) 100 mls @ 25 mls/hr IV Q12H [facility]; Protocol Stop: 02/10/23 09:59 Last Admin: 02/03/23 12:04 Dose: 25 mls/hr Documented By: JUAN Pantoprazole Sodium 40 mg/ (Dextrose) 100 mls @ 20 mls/hr IV Q5H [facility] Stop: 03/05/23 06:14 Last Admin: 02/03/23 13:14 Dose: 8 mg/hr, 20 mls/hr Documented By: Infusion: 02/03/23 13:14 Dose: Infused Documented By: Admin: 02/03/23 08:57 Dose: 8 mg/hr, 20 mls/hr Documented By: JUAN Magnesium Chloride (Magnesium Chloride W/Calcium 64mg Delayed Rel Tab) 64 mg PO DAILY [facility] Stop: 03/05/23 08:59 Last Admin: 02/03/23 10:57 Dose: 64 mg Documented By: JUAN Metoprolol Tartrate (Metoprolol Tartrate 25 Mg Tab) 25 mg PO Q12 [facility] Stop: 03/05/23 08:59 Last Admin: 02/03/23 10:57 Dose: Not Given Documented By: JUAN Potassium Chloride (Potassium Chloride 10 Meq Tabcr) 10 meq PO DAILY [facility] Stop: 03/05/23 08:59 Last Admin: 02/03/23 10:57 Dose: 10 meq Documented By: JUAN Sertraline HCl (Sertraline Hcl 50 Mg Tablet) 50 mg PO DAILY [facility] Stop: 03/05/23 08:59 Last Admin: 02/03/23 10:57 Dose: 50 mg Documented By: JUAN Timolol Maleate (Timolol Maleate 0.5% Op Soln 5 Ml Btl) 1 drops OP DAILY [facility] Stop: 03/05/23 08:59 Last Admin: 02/03/23 08:47 Dose: 1 drops Documented By: JUAN Discontinued Medications Levetiracetam 2,000 mg/ Sodium (Chloride) 270 mls @ 999 mls/hr IV NOW STA Stop: 02/02/23 22:20 Last Infusion: 02/02/23 22:45 Dose: Infused Documented By: Admin: 02/02/23 22:28 Dose: 953 mls/hr Documented By: Sodium Chloride (Nss) 1,000 mls @ 999 mls/hr IV .Q1H1M [facility] Stop: 02/02/23 23:04 Last Infusion: 02/02/23 23:00 Dose: Infused Documented By: Admin: 02/02/23 22:15 Dose: 999 mls/hr Documented By: FABIAN Sodium Chloride (Nss) 1,000 mls @ 999 mls/hr IV .Q1H1M ONE Stop: 02/02/23 23:51 Last Infusion: 02/03/23 01:00 Dose: Infused Documented By: Admin: 02/02/23 23:59 Dose: 999 mls/hr Documented By: SABINA Potassium Chloride/Sodium Chloride (1/2 Nss + 20meq Kcl 1000ml) 20 meq in 1,000 mls @ 100 mls/hr IV .Q10H [facility] Stop: 03/04/23 23:14 Last Infusion: 02/03/23 07:48 Dose: Infused Documented By: Infusion: 02/03/23 01:59 Dose: 0 mls/hr Documented By: Admin: 02/03/23 01:24 Dose: 100 mls/hr Documented By: SABINA Potassium Chloride (K Uzair / Wtr) 10 meq in 100 mls @ 100 mls/hr IV Q1H [facility] Stop: 02/03/23 05:14 Last Infusion: 02/03/23 07:48 Dose: Infused Documented By: Admin: 02/03/23 04:53 Dose: 100 mls/hr Documented By: Infusion: 02/03/23 04:52 Dose: Infused Documented By: Admin: 02/03/23 03:45 Dose: 100 mls/hr Documented By: Infusion: 02/03/23 03:45 Dose: Infused Documented By: Admin: 02/03/23 03:06 Dose: 100 mls/hr Documented By: Infusion: 02/03/23 03:06 Dose: Infused Documented By: Admin: 02/03/23 01:59 Dose: 100 mls/hr Documented By: SABINA Piperacillin Sod/Tazobactam (Sod 4.5 gm/ Dextrose) 100 mls @ 200 mls/hr IV NOW ONE; Protocol Stop: 02/03/23 03:14 Last Infusion: 02/03/23 04:15 Dose: Infused Documented By: Admin: 02/03/23 03:45 Dose: 200 mls/hr Documented By: SABINA Pantoprazole Sodium 80 mg/ (Dextrose) 120 mls @ 480 mls/hr IV NOW ONE Stop: 02/03/23 06:14 Last Infusion: 02/03/23 08:17 Dose: Infused Documented By: Admin: 02/03/23 07:56 Dose: 480 mls/hr Documented By: JUAN Description This is a 21 electrode EEG with a single channel dedicated to limited EKG. The electrodes were placed in accordance with the International 10-20 system. REPORT: At the onset of the EEG the patient is drowsy. The background is continuous and appears symmetric. The background consist of generalized 5-7 theta activity with some intermixed delta activity. No stage II sleep transients are seen. Photic does not induce any abnormalities. Interpretation IMPRESSION: This is an abnormal routine EEG due to generalized background slowing suggestive of a non specific encephalopathy. No epileptiform activity is seen.
[2023-02-03] MEDS ORDERED: LORazepam 1 MG/1 ML SYR ED Inj Use ONE ×3 (16:34→18:20)
--- NOTE | 2023-02-03 16:38 | Hospitalist Progress Note ---
Date of Service February 03, 2023 Assessment & Plan (1) Seizure-like activity: Plan: Patient is a 77 yr male with H/O SIADH, CAD, s/p CABG, hypertension GERD, primary open-angle glaucoma, iron deficiency anemia, depression, history of DVT, patient had prolonged hospital stay in September and October 2022 with perforated gastric ulcer and had diagnostic laparoscopy and repair of gastric ulcer on September 17, 2022. Treated with IV antibiotics. And also she underwent right abdominal pigtail catheter on September 28, 2022 by IR and was removed after minimal output. Patient again had IR drain placement in right upper abdominal October 11, 2022 per surgery recommendation and subsequently was taken out. At the time she was also in ICU for aspiration pneumonia and severe sepsis septic shock.She also had G-tube placement. Patient was discharged to [facility] longterm. Patient currently eats but she also gets 50 mill per hour for 12 hours of tube feeds. Currently not doing much in PT. Patient was brought in from longterm because of seizure-like activity around 7:30 PM. She witnessed seizure at longterm. Currently seems postictal. Imaging studies are okay in the ER. Sodium 133, potassium 3.2, creatinine 2.2 and lactic acid came at 5.9 and calcium 11.4. Patient currently very drowsy. Grimaces with painful stimuli. Moves extremities on painful stimuli. Hemodynamically stable. Confirmed with the daughter the patient is DNR. As per longterm no recent fevers. No recent cough. As per longterm had 1 episode of vomiting yesterday. No diarrhea. Otherwise she is alert and oriented as per longterm. As per daughter sometimes her cognitive status is not a great. Seizure-like activity Acute metabolic encephalopathy Abnormal urinalysis--rule out UTI DD:? Polypharmacy --CT head:Mild progressive left mastoid effusion. Stable age-related findings. No acute infarct, bleed, or acute intracranial abnormality. --EEG:This is an abnormal routine EEG due to generalized background slowing suggestive of a non specific encephalopathy. No epileptiform activity is seen. --Toxicology positive for marijuana --Chronic mastoid effusion also seen on prior imaging --Lactic acidosis resolved with IV fluids --Blood, urine cultures pending --Continue empiric Zosyn --Continue IV Keppra Hold sedating medications Aspiration, fall, seizure precautions Neurology consulted Continue IV fluids Reorient frequently to minimize delirium Ativan as needed for seizures Mildly elevated troponin Likely demand ischemia EKG showed no signs of acute ischemia Suspected GI bleed Acute on chronic anemia Iron deficiency anemia No obvious source of bleed currently S/P 2 units PRBCs Hb 6.6>>8.1 Bowel rest for today Continue Protonix drip Appreciate GI input Monitor H&H and transfuse PRBCs as needed Chronic rib fractures Nonunited fracture of left pubic symphysis Probable healing left sacral fracture Incidental findings on imaging studies Fall precautions PT OT as able CAL on CKD II-III Cr 2.2>2.0 Avoid nephrotoxic agents as able Monitor renal function On IV fluids Chronic hyponatremia H/O SIADH Sodium 133>135 Currently clinically dehydrated Monitor sodium levels Hypokalemia Replace and Monitor H/o CAD s/p CABG On statin and beta-irene H/O Perforated gastric ulcer s/p repair Currently no acute obvious bleeding issues Continue Protonix Iron deficiency anemia Continue Iron supplements Depression On Remeron and Zoloft Resume home medications as able Nutrition Will consult [employer] for tube feeds when appropriate gets tube feeds 50ml/hr for 12hrs in night time. Poor oral intake currently DVT Px SCDs Re: significant anemia, concern for GI bleed CODE STATUS DNR/DNI Disposition PT OT prior to discharge Admission and Anticipated Discharge Date Admission Date: February 03, 2023 Subjective Patient is seen and examined at bedside Drowsy but still able to answer simple questions Discussed with patient's daughter in detail at bedside Patient states having intermittent abdominal pain Poor historian Denies any chest pain, dyspnea Discussed with gastroenterology today Review of Systems Review of Systems: All systems reviewed & are unremarkable except as noted in Subjective Physical Exam Physical Exam: Physical Exam: Vitals signs as noted above General Appearance: Thin, frail, ill-appearing, elderly, no apparent distress Head: normocephalic, Atraumatic Eyes: normal inspection, EOMI Neck: supple, Trachea midline Respiratory/Chest: Normal breath sounds, CTA, No accessory muscle use Cardiovascular: S1, S2, No murmur Abdomen/GI:Soft, Non tender, + J tube, Bowel sounds present Extremities/Musculoskeletal:normal inspection, no edema Neurologic/Psych:AAOX1, drowsy, follows simple commands Skin: normal color, warm Results & Data Results & Data Vital Signs (Past 12 Hours) Vital Signs Temp Pulse Pulse Resp BP BP Pulse Ox 02/03/23 15:15 36.7 C 77 26 H 160/70 H 100 02/03/23 15:00 79 29 H 148/78 H 99 02/03/23 14:55 76 20 100 02/03/23 14:50 78 30 H 157/84 H 100 02/03/23 14:45 148/83 H 02/03/23 14:45 78 22 100 02/03/23 14:40 137/80 02/03/23 14:40 78 19 100 02/03/23 14:40 36.4 C L 80 20 148/83 H 100 02/03/23 14:35 133/81 02/03/23 14:35 80 26 H 100 02/03/23 14:30 108/62 02/03/23 14:30 75 20 100 02/03/23 14:25 119/68 02/03/23 14:25 75 24 100 02/03/23 14:20 127/66 02/03/23 14:20 77 21 100 02/03/23 14:15 129/70 02/03/23 14:15 75 22 100 02/03/23 14:10 135/78 02/03/23 14:10 76 27 H 134/73 100 02/03/23 14:05 79 26 H 100 02/03/23 14:00 139/70 02/03/23 14:00 75 21 149/78 H 100 02/03/23 13:55 78 18 100 02/03/23 13:50 75 26 H 99 02/03/23 13:50 135/79 02/03/23 13:45 73 26 H 146/83 H 100 02/03/23 13:40 126/66 02/03/23 13:40 73 24 100 02/03/23 13:40 36.4 C L 80 20 126/72 100 02/03/23 13:35 136/85 02/03/23 13:35 80 24 100 02/03/23 13:30 78 24 123/69 100 02/03/23 13:25 74 19 100 02/03/23 13:20 75 19 105/61 100 02/03/23 13:15 75 21 118/61 100 02/03/23 13:10 81 27 H 130/72 100 02/03/23 13:10 36.4 C L 75 20 130/72 100 02/03/23 13:05 77 19 131/66 100 02/03/23 13:00 80 21 133/73 100 02/03/23 12:55 133/81 02/03/23 12:55 36.5 C 71 20 135/72 100 02/03/23 12:40 36.5 C 71 20 139/82 100 02/03/23 11:46 36.5 C 71 20 150/77 H 100 02/03/23 11:31 36.5 C 71 20 140/74 100 02/03/23 10:31 36.5 C 71 20 111/71 100 02/03/23 10:25 71 109/58 L 100 02/03/23 10:01 36.5 C 71 18 98/55 L 100 02/03/23 09:46 36.5 C 73 20 136/70 100 02/03/23 09:44 36.5 C 73 20 136/70 100 02/03/23 09:36 36.5 C 87 18 138/80 96 02/03/23 09:25 36.4 C L 79 22 143/83 H 97 02/03/23 09:13 36.8 C 71 22 143/83 H 100 02/03/23 07:30 02/03/23 07:30 02/03/23 07:03 74 02/03/23 06:00 133/73 02/03/23 06:00 76 19 99 02/03/23 05:50 75 18 99 02/03/23 05:40 78 20 99 02/03/23 05:30 81 19 97 02/03/23 05:30 96/77 L 02/03/23 05:20 75 19 99 02/03/23 05:10 74 21 100 02/03/23 05:00 111/58 L 02/03/23 05:00 80 19 98 02/03/23 04:50 75 20 100 02/03/23 04:40 79 21 99 Pulse Ox O2 Del Method O2 Del Method O2 Flow Rate O2 Flow Rate 02/03/23 15:15 Oxymask 4 02/03/23 15:00 Oxymask 4 02/03/23 14:55 Oxymask 4 02/03/23 14:50 Oxymask 4 02/03/23 14:45 02/03/23 14:45 02/03/23 14:40 02/03/23 14:40 02/03/23 14:40 4 02/03/23 14:35 02/03/23 14:35 02/03/23 14:30 02/03/23 14:30 02/03/23 14:25 02/03/23 14:25 02/03/23 14:20 02/03/23 14:20 02/03/23 14:15 02/03/23 14:15 02/03/23 14:10 02/03/23 14:10 02/03/23 14:05 02/03/23 14:00 02/03/23 14:00 Oxymask 4 02/03/23 13:55 Oxymask 4 02/03/23 13:50 Oxymask 4 02/03/23 13:50 02/03/23 13:45 Oxymask 4 02/03/23 13:40 02/03/23 13:40 Oxymask 4 02/03/23 13:40 4 02/03/23 13:35 02/03/23 13:35 02/03/23 13:30 02/03/23 13:25 Oxymask 4 02/03/23 13:20 Oxymask 4 02/03/23 13:15 Oxymask 4 02/03/23 13:10 Oxymask 4 02/03/23 13:10 4 02/03/23 13:05 Oxymask 4 02/03/23 13:00 Oxymask 4 02/03/23 12:55 02/03/23 12:55 4 02/03/23 12:40 4 02/03/23 11:46 4 02/03/23 11:31 4 02/03/23 10:31 4 02/03/23 10:25 4 02/03/23 10:01 4 02/03/23 09:46 4 02/03/23 09:44 4 02/03/23 09:36 4 02/03/23 09:25 4 02/03/23 09:13 Oxymask 4 02/03/23 07:30 Oxymask 4 02/03/23 07:30 99 Oxymask 4 02/03/23 07:03 02/03/23 06:00 02/03/23 06:00 02/03/23 05:50 02/03/23 05:40 02/03/23 05:30 02/03/23 05:30 02/03/23 05:20 02/03/23 05:10 02/03/23 05:00 02/03/23 05:00 02/03/23 04:50 02/03/23 04:40
[2023-02-03] MEDS: LORazepam 2 MG in SYRINGE 1 ML IV PRN ×3 (16:40→18:23)
[2023-02-03] MEDS ORDERED: AMPICILLIN 2,000 MG in SODIUM CHLOR 0.9% MINI-B 100 ML IV STA (18:00)
[2023-02-03] MEDS ORDERED: VANCOMYCIN CONSULT ACTIVE PRN (18:07)
[2023-02-03] MEDS ORDERED: VANCOMYCIN HCL 1,250 MG in SODIUM CHLORIDE 0.9% 250 ML IV ONE (18:15)
--- NOTE | 2023-02-03 18:24 | XRay Report ---
XR chest 1V portable CLINICAL HISTORY: Hypoxia TECHNIQUE: Single frontal radiograph of the chest was obtained. Comparison: Comparison is made to chest radiograph 01/25/2023 FINDINGS: Median sternotomy wires are unchanged. The aorta is tortuous. The remainder of the cardiomediastinal silhouette is unremarkable. The lungs are clear. No evidence of pleural effusion or pneumothorax. IMPRESSION: No acute abnormalities and in particular no radiographic evidence of pneumonia. ACT 112: Negative or not required by law. Electronically signed by: Emerson Quintero M.D. 02/03/2023 6:22 PM
--- NOTE | 2023-02-03 18:31 | Communication Note ---
Date of Service: February 03, 2023 Patient had recurrent seizures while hospitalized. Episodes visualized by RN/patient's daughter. Discussed with neurologist Dr. Jones. Will obtain MRI brain and change antibiotics to cover possible meningitis. Requested ER physician to help with lumbar puncture as recommended by neurology. Dr. Curry kindly agreed to perform lumbar puncture. Patient's daughter--POA agrees with lumbar puncture and current management. Also discussed with ICU team. If patient deteriorates, will transfer patient to ICU for close monitoring. CODE STATUS DNI DNR confirmed with patient's daughter. If respiratory failure, will place patient on BiPAP. Increased dose of Keppra 1000 mg twice daily as per neurology. Further management based on cultures. More than 82 minutes involved in patient critical care, reviewing labs ordering necessary tests and discussing with family and subspecialists.
--- NOTE | 2023-02-03 18:32 | Emergency Department Note ---
ED Visit Note I was asked to evaluate the patient by Dr. Shaw who is evaluating the patient for seizure. The patient had an EEG which was felt to be consistent with encephalopathy. Neurology recommended a lumbar puncture. I was asked to do the lumbar puncture. The patient was still having some slight seizure activity. 1 mg of Ativan was given by nursing. Seizure activity stopped. Lumbar puncture was performed in room C1. Lumbar Puncture Indication: Seizure and encephalopathy. Verbal consent was obtained after the risks and benefits were explained, including but not limited to headache, bleeding/clotting, scarring, infection, pain, and bone/joint/nerve damage. At this time, the risks of the procedure are less than the risks of NOT performing the procedure. A time out was taken and the correct patient and site identified. The patient was placed in the seated position and the back was prepped with betadine and draped in the standard fashion. The L3 intervertebral space was identified, anesthetized locally with 1% lidocaine without epinephrine, and the spinal needle was inserted through the skin with the bevel parallel to the dural fibers. The needle was carefully advanced into the lumbar cistern and 4 tubes of clear CSF was obtained. The stylet was replaced and the needle was removed. A bandaid was placed and the patient was placed in the supine position. The patient tolerated the procedure well and there were no complications. .
--- NOTE | 2023-02-03 18:45 | Neurology Consultation ---
Date of Consultation February 03, 2023 Assessment & Plan (1) Seizure: New onset seizure- EEG without overt evidence of epileptiform discharges and or epileptogenic focus Continue seizure precautions Utilize benzodiazepines emergently for breakthrough seizure like activity Metabolic and infectious workup ongoing Recommend increase Keppra to 1000mg IV Q12 after 2gram IV dose now Recommend MRI brain with and without contrast (2) Metabolic encephalopathy: Recommend lumbar puncture to assess for GRID INSPECTOR infection Recommend escalate antimicrobial treatment to cover for GRID INSPECTOR involvement Recommend Infectious Disease consultation Continue to monitor neurological assessments Obtain stat CT brain without contrast for any acute neurological decline Continue to monitor renal and hepatic function Telehealth Consultation Telehealth Information Telehealth Information: I performed this visit using a real-time telehealth connection between my location and the patients location ([facility]). After connecting through interactive tele-video, patient was identified by name and date of and/or wristband check.Patient (or authorized healthcare customer development representative) was informed that this was a telemedicine visit and it was being conducted confidentially over secure lines. My office door was closed and no one else was present in the room with me.Patient (or authorized healthcare customer development representative) provided consent to proceed with the visit, expressed an understanding of privacy and security of the telemedicine visit, and gave permission to have a hospital customer development representative in the room in order to assist with the visit and to conduct portions of the visit, as needed. I informed the patient (or authorized healthcare customer development representative) that I reviewed their record and presented the opportunity for them to ask any questions regarding the visit today. The patient agreed to participate. History of Present Illness Reason for Consultation: Seizure Requesting Physician: Dr. Shaw Attending Physician: Luan Shaw MD History of Present Illness 77yo female presented with reported seizure arrived from [facility] facility and demonstrated continued seizure like activity while hospitalized. She has undergone EEG without evidence of epileptiform discharges and/or epileptogenic focus. She reportedly has had seizure like activity demonstrating left arm and left leg shaking coupled with a left gaze preference.She has received lorazepam for this breakthrough seizure prior to my performing televideo consultation. She is in respiratory distress. Will mumbles when asked her name loudly but overall appears minimally responsive. Will reportedly grimace in response to painful stimuli. No overt evidence of nuchal rigidity or Positive Kernig or Brudzinski signs. Pupils are reactive bilaterally without evidence hippus nystagmus or roving eye movements. She has been receiving antimicrobial treatment as she undergoes further workup regarding etiology of new onset seizures. GI services have been consulted following concern of hematemesis but notably may have had blood in mouth from tongue biting. Recent baseline function is not well understood at this time. She has notably been receiving TF but reportedly will eat as well. She has undergone CT brain without contrast revealing no overt evidence of intracranial pathology however noting mastoid effusion. Televideo consultation performed with help of RN at bedside Discussed with RN and primary/hospitalist service Recommend increase keppra dosing Recommend LP for CSF analysis and increase antimicrobial therapy to allow GRID INSPECTOR coverage Recommend MRI brain be obtained both with and without contrast Allergies Allergy/AdvReac Type Severity Reaction Status Date / Time dorzolamide Allergy Intermediate Itchy, Verified 02/02/23 23:12 redness, irritated eyes iodine Allergy Intermediate Rash Verified 02/02/23 23:12 latex Allergy Intermediate Rash Verified 02/02/23 23:12 tositumomab [id number] Allergy Unknown Unknown Verified 02/02/23 23:12 Home Medications Medication Instructions Recorded Confirmed Type acetaminophen 325 mg tablet 650 mg PO Q6 PRN Fever Or Pain 02/02/23 02/02/23 History (Tylenol) atorvastatin 80 mg tablet 80 mg PO HS 02/02/23 02/02/23 History calcium carbonate 1,000 mg tablet 1,250 mg PO DAILY 02/02/23 02/02/23 History cholecalciferol (vitamin D3) 125 125 mcg PO DAILY 02/02/23 02/02/23 History mcg (5,000 unit) tablet (Vitamin D3) dronabinol 5 mg capsule 5 mg PO DAILY 02/02/23 02/02/23 History ferrous sulfate 325 mg (65 mg 325 mg PO DAILY 02/02/23 02/02/23 History iron) tablet folic acid 1 mg tablet 1 mg PO DAILY 02/02/23 02/02/23 History latanoprost 0.005 % eye drops 1 drp OPB HS 02/02/23 02/02/23 History magnesium chloride 64 mg 64 mg PO DAILY 02/02/23 02/02/23 History (magnesium chloride) tablet melatonin 3 mg tablet 3 mg PO HS 02/02/23 02/02/23 History metoclopramide HCl 5 mg tablet 5 mg PO TID 02/02/23 02/02/23 History metoprolol tartrate 25 mg tablet 25 mg PO Q12 02/02/23 02/02/23 History mirtazapine 15 mg tablet 15 mg PO HS 02/02/23 02/02/23 History nitroglycerin 0.4 mg sublingual 0.4 mg sublingual DIRECTED PRN 02/02/23 1 04/05/22 History tablet (Nitrostat) Chest Pain ondansetron HCl 4 mg tablet 4 mg PO Q4 PRN Nausea 02/02/23 02/02/23 History pantoprazole 40 mg tablet,delayed 40 mg PO BID 02/02/23 02/02/23 History release potassium chloride 10 mEq 10 meq PO DAILY 02/02/23 02/02/23 History tablet,extended release sertraline 50 mg tablet (Zoloft) 50 mg PO DAILY 02/02/23 02/02/23 History timolol maleate 0.5 % eye drops 1 drp OPB DAILY 02/02/23 02/02/23 History Patient History Medical History (Updated 02/03/23 @ 18:56 by Cosme Jones DO) [facility] resident Currently residing at [facility] in [place] Muscle weakness (generalized) Nutritional deficiency Metabolic encephalopathy Critical illness myopathy Pressure ulcer of sacral region Diarrhea Anemia Dysphagia Essential (primary) hypertension Insomnia Hyperlipidemia Atherosclerotic heart disease Aspiration pneumonitis Pulmonary aspergillosis COPD with emphysema Perforated gastric ulcer Depression Coronary artery disease Surgical History (Updated 12/02/22 @ 11:34 by Tiffany Kramer RN) History of esophagogastroduodenoscopy (12/01/22) Esophagogastroduodenoscopy, esophageal brushings(Not Applicable) - John Rivera DO History of surgery Diagnostic Laparoscopy, Placement of Jejunal Feeding Tube H/O abdominal surgery Diagnostic Laparoscopy, Repair of Perforated Gastic Ulcer, Tavo patch abdominal Washout Status post incision and drainage Incision and Drainage of Face Tooth Extraction #31 History of total hysterectomy History of cholecystectomy History of coronary artery bypass graft Family History Other Family history unknown Social History Smoking Status: Unknown if ever smoked Tobacco Type: Cigarettes Preferred Language: Croatian Communication Ability: Impaired Communication Ability Comment: per [facility] pt is of sound mind to sign consents Cell Assembly Pinner Required: No Beliefs That Will Affect Care: None Current Living Situation: [facility] Personal [facility] Facility Current Living Situation Comment: [facility] Other Information That Helps Us Care for You: No Feels Safe at Home: Yes Physical Exam Neurological Examination: Mental Status: Awake Minimally responsive CN testing: I: Difficult to accurately assess II:Inconsistent/ minimal blink to threat III/IV/: No evidence of gaze preference, hippus, nystagmus or roving eye movements V: Difficult to reliable assess VII: Facial movements appear without evidence of asymmetry VIII: Difficult to reliable assess IX/X: Palate unable to be accurately visualized XI: Difficult to reliable assess XII: Difficult to reliable assess Motor exam: Limited motor exam- will withdrawal to pain in all extremities Sensory: Difficult to reliable assess Coordination: Deferred Reflexes: Deferred Gait: Deferred Results & Data Vital Signs (Past 12 Hours) Vital Signs Temp Pulse Pulse Resp BP BP Pulse Ox 02/03/23 16:50 83 02/03/23 15:15 36.7 C 77 26 H 160/70 H 100 02/03/23 15:00 79 29 H 148/78 H 99 02/03/23 14:55 76 20 100 02/03/23 14:50 78 30 H 157/84 H 100 02/03/23 14:45 148/83 H 02/03/23 14:45 78 22 100 02/03/23 14:40 137/80 02/03/23 14:40 78 19 100 02/03/23 14:40 36.4 C L 80 20 148/83 H 100 02/03/23 14:35 133/81 02/03/23 14:35 80 26 H 100 02/03/23 14:30 108/62 02/03/23 14:30 75 20 100 02/03/23 14:25 119/68 02/03/23 14:25 75 24 100 02/03/23 14:20 127/66 02/03/23 14:20 77 21 100 02/03/23 14:15 129/70 02/03/23 14:15 75 22 100 02/03/23 14:10 135/78 02/03/23 14:10 76 27 H 134/73 100 02/03/23 14:05 79 26 H 100 02/03/23 14:00 139/70 02/03/23 14:00 75 21 149/78 H 100 02/03/23 13:55 78 18 100 02/03/23 13:50 75 26 H 99 02/03/23 13:50 135/79 02/03/23 13:45 73 26 H 146/83 H 100 02/03/23 13:40 126/66 02/03/23 13:40 73 24 100 02/03/23 13:40 36.4 C L 80 20 126/72 100 02/03/23 13:35 136/85 02/03/23 13:35 80 24 100 02/03/23 13:30 78 24 123/69 100 02/03/23 13:25 74 19 100 02/03/23 13:20 75 19 105/61 100 02/03/23 13:15 75 21 118/61 100 02/03/23 13:10 81 27 H 130/72 100 02/03/23 13:10 36.4 C L 75 20 130/72 100 02/03/23 13:05 77 19 131/66 100 02/03/23 13:00 80 21 133/73 100 02/03/23 12:55 133/81 02/03/23 12:55 36.5 C 71 20 135/72 100 02/03/23 12:40 36.5 C 71 20 139/82 100 02/03/23 11:46 36.5 C 71 20 150/77 H 100 02/03/23 11:31 36.5 C 71 20 140/74 100 02/03/23 10:31 36.5 C 71 20 111/71 100 02/03/23 10:25 71 109/58 L 100 02/03/23 10:01 36.5 C 71 18 98/55 L 100 02/03/23 09:46 36.5 C 73 20 136/70 100 02/03/23 09:44 36.5 C 73 20 136/70 100 02/03/23 09:36 36.5 C 87 18 138/80 96 02/03/23 09:25 36.4 C L 79 22 143/83 H 97 02/03/23 09:13 36.8 C 71 22 143/83 H 100 02/03/23 07:30 02/03/23 07:30 02/03/23 07:03 74 Pulse Ox O2 Del Method O2 Del Method O2 Flow Rate O2 Flow Rate 02/03/23 16:50 02/03/23 15:15 Oxymask 4 02/03/23 15:00 Oxymask 4 02/03/23 14:55 Oxymask 4 02/03/23 14:50 Oxymask 4 02/03/23 14:45 02/03/23 14:45 02/03/23 14:40 02/03/23 14:40 02/03/23 14:40 4 02/03/23 14:35 02/03/23 14:35 02/03/23 14:30 02/03/23 14:30 02/03/23 14:25 02/03/23 14:25 02/03/23 14:20 02/03/23 14:20 02/03/23 14:15 02/03/23 14:15 02/03/23 14:10 02/03/23 14:10 02/03/23 14:05 02/03/23 14:00 02/03/23 14:00 Oxymask 4 02/03/23 13:55 Oxymask 4 02/03/23 13:50 Oxymask 4 02/03/23 13:50 02/03/23 13:45 Oxymask 4 02/03/23 13:40 02/03/23 13:40 Oxymask 4 02/03/23 13:40 4 02/03/23 13:35 02/03/23 13:35 02/03/23 13:30 02/03/23 13:25 Oxymask 4 02/03/23 13:20 Oxymask 4 02/03/23 13:15 Oxymask 4 02/03/23 13:10 Oxymask 4 02/03/23 13:10 4 02/03/23 13:05 Oxymask 4 02/03/23 13:00 Oxymask 4 02/03/23 12:55 02/03/23 12:55 4 02/03/23 12:40 4 02/03/23 11:46 4 02/03/23 11:31 4 02/03/23 10:31 4 02/03/23 10:25 4 02/03/23 10:01 4 02/03/23 09:46 4 02/03/23 09:44 4 02/03/23 09:36 4 02/03/23 09:25 4 02/03/23 09:13 Oxymask 4 02/03/23 07:30 Oxymask 4 02/03/23 07:30 99 Oxymask 4 02/03/23 07:03 Laboratory Results Abnormal lab results 02/02/23 02/02/23 02/02/23 Range/Units 21:56 22:03 22:06 RBC 3.98 L (4.20-5.40) M/uL Hgb 8.5 L (12.0-16.0) g/dl POC Hgb 9.2 L (12.0-16.0) g/dl Hct 28.3 L (37.0-47.0) % POC Hct 27 L (37-47) % MCV 71.1 L (80.0-100.0) fL MCH 21.4 L (25.0-34.0) pg MCHC 30.0 L (32.0-36.0) g/dL RDW Coeff of Aster 17.2 H (11.5-14.5) % Lymph # (Auto) (1.20-3.40) K/uL [place] # (Auto) 1.14 H (0.11-0.59) K/uL POC Sodium 134 L (135-144) mmol/L Sodium 133 L (136-145) mmol/L POC Potassium 3.2 L (3.3-5.0) mmol/L Potassium 3.2 L (3.5-5.1) mmol/L POC Chloride 97 L (101-112) mmol/L Chloride 96 L (98-107) mmol/L Anion Gap 13 H (3-11) POC BUN 42 H (7-18) mg/dl BUN 50 H (6-23) mg/dl Creatinine 2.28 H (0.6-1.2) mg/dl POC Creatinine 2.4 H (0.6-1.3) mg/dl BUN/Creatinine Ratio 21.9 H (10-20) Glucose 120 H (70-99(Fasting)) mg/dl POC Glucose 132 H (70-99) mg/dl POC Glucose (other) 122 H (70-99) mg/dl Lactate 5.9 H* (0.4-2.0) mmol/L Calcium 11.4 H (8.6-10.3) mg/dl POC Ioniz Calcium Sharda 1.44 H (1.12-1.32) mmol/l AST 44 H (13-39) U/L Alkaline Phosphatase 106 H (34-104) U/L Troponin I High Sens 20.9 H (0-14) pg/ml Urine Appearance (Clear) Urine Protein (Negative) Urine Blood (Negative) Ur Leukocyte Esterase (Negative) Urine WBC (Auto) (0-5) /hpf U Epithel Cells (Auto) (0-5) /lpf Urine Bacteria (Auto) (Negative) U Marijuana (THC) Screen (Neg) Crossmatch 02/03/23 02/03/23 02/03/23 Range/Units 00:45 02:11 04:13 RBC 3.10 L (4.20-5.40) M/uL Hgb 6.8 L* (12.0-16.0) g/dl POC Hgb (12.0-16.0) g/dl Hct 21.9 L (37.0-47.0) % POC Hct (37-47) % MCV 70.6 L (80.0-100.0) fL MCH 21.9 L (25.0-34.0) pg MCHC 31.1 L (32.0-36.0) g/dL RDW Coeff of Aster 17.2 H (11.5-14.5) % Lymph # (Auto) 0.86 L (1.20-3.40) K/uL [place] # (Auto) 0.96 H (0.11-0.59) K/uL POC Sodium (135-144) mmol/L Sodium 135 L (136-145) mmol/L POC Potassium (3.3-5.0) mmol/L Potassium (3.5-5.1) mmol/L POC Chloride (101-112) mmol/L Chloride (98-107) mmol/L Anion Gap (3-11) POC BUN (7-18) mg/dl BUN 45 H (6-23) mg/dl Creatinine 2.03 H (0.6-1.2) mg/dl POC Creatinine (0.6-1.3) mg/dl BUN/Creatinine Ratio 22.2 H (10-20) Glucose 100 H (70-99(Fasting)) mg/dl POC Glucose (70-99) mg/dl POC Glucose (other) (70-99) mg/dl Lactate 2.1 H* (0.4-2.0) mmol/L Calcium (8.6-10.3) mg/dl POC Ioniz Calcium Sharda (1.12-1.32) mmol/l AST (13-39) U/L Alkaline Phosphatase (34-104) U/L Troponin I High Sens 26.3 H 28.1 H (0-14) pg/ml Urine Appearance (Clear) Urine Protein (Negative) Urine Blood (Negative) Ur Leukocyte Esterase (Negative) Urine WBC (Auto) (0-5) /hpf U Epithel Cells (Auto) (0-5) /lpf Urine Bacteria (Auto) (Negative) U Marijuana (THC) Screen (Neg) Crossmatch 02/03/23 02/03/23 02/03/23 Range/Units 04:30 05:00 06:10 RBC (4.20-5.40) M/uL Hgb 6.6 L* (12.0-16.0) g/dl POC Hgb (12.0-16.0) g/dl Hct 22.3 L (37.0-47.0) % POC Hct (37-47) % MCV (80.0-100.0) fL MCH (25.0-34.0) pg MCHC (32.0-36.0) g/dL RDW Coeff of Aster (11.5-14.5) % Lymph # (Auto) (1.20-3.40) K/uL [place] # (Auto) (0.11-0.59) K/uL POC Sodium (135-144) mmol/L Sodium (136-145) mmol/L POC Potassium (3.3-5.0) mmol/L Potassium (3.5-5.1) mmol/L POC Chloride (101-112) mmol/L Chloride (98-107) mmol/L Anion Gap (3-11) POC BUN (7-18) mg/dl BUN (6-23) mg/dl Creatinine (0.6-1.2) mg/dl POC Creatinine (0.6-1.3) mg/dl BUN/Creatinine Ratio (10-20) Glucose (70-99(Fasting)) mg/dl POC Glucose (70-99) mg/dl POC Glucose (other) (70-99) mg/dl Lactate (0.4-2.0) mmol/L Calcium (8.6-10.3) mg/dl POC Ioniz Calcium Sharda (1.12-1.32) mmol/l AST (13-39) U/L Alkaline Phosphatase (34-104) U/L Troponin I High Sens (0-14) pg/ml Urine Appearance Turbid A (Clear) Urine Protein 1+ H (Negative) Urine Blood 1+ H (Negative) Ur Leukocyte Esterase 3+ H (Negative) Urine WBC (Auto) >30 H (0-5) /hpf U Epithel Cells (Auto) 5-10 H (0-5) /lpf Urine Bacteria (Auto) 1+ H (Negative) U Marijuana (THC) Screen Pos H (Neg) Crossmatch See Detail 02/03/23 02/03/23 02/03/23 Range/Units 08:09 12:05 17:11 RBC (4.20-5.40) M/uL Hgb 8.1 L (12.0-16.0) g/dl POC Hgb (12.0-16.0) g/dl Hct 26.0 L (37.0-47.0) % POC Hct (37-47) % MCV (80.0-100.0) fL MCH (25.0-34.0) pg MCHC (32.0-36.0) g/dL RDW Coeff of Aster (11.5-14.5) % Lymph # (Auto) (1.20-3.40) K/uL [place] # (Auto) (0.11-0.59) K/uL POC Sodium (135-144) mmol/L Sodium (136-145) mmol/L POC Potassium (3.3-5.0) mmol/L Potassium (3.5-5.1) mmol/L POC Chloride (101-112) mmol/L Chloride (98-107) mmol/L Anion Gap (3-11) POC BUN (7-18) mg/dl BUN (6-23) mg/dl Creatinine (0.6-1.2) mg/dl POC Creatinine (0.6-1.3) mg/dl BUN/Creatinine Ratio (10-20) Glucose (70-99(Fasting)) mg/dl POC Glucose 100 H (70-99) mg/dl POC Glucose (other) (70-99) mg/dl Lactate (0.4-2.0) mmol/L Calcium (8.6-10.3) mg/dl POC Ioniz Calcium Sharda (1.12-1.32) mmol/l AST (13-39) U/L Alkaline Phosphatase (34-104) U/L Troponin I High Sens 26.7 H 20.0 H D (0-14) pg/ml Urine Appearance (Clear) Urine Protein (Negative) Urine Blood (Negative) Ur Leukocyte Esterase (Negative) Urine WBC (Auto) (0-5) /hpf U Epithel Cells (Auto) (0-5) /lpf Urine Bacteria (Auto) (Negative) U Marijuana (THC) Screen (Neg) Crossmatch Diagnostic Findings Head CT 02/02/23 21:43 CR Exam(s): CT HEAD Without Contrast EXAM: CT Head Without Intravenous Contrast CLINICAL HISTORY: Reason for exam: sz. TECHNIQUE: Axial computed tomography images of the head/brain without intravenous contrast. CTDI is 35.79 mGy and DLP is 546.36 mGy-cm. Automated exposure control was utilized for the study. A dose lowering technique was utilized adhering to the principles of ALARA. Mild motion artifact. COMPARISON: Head CT 09/23/22. FINDINGS: Brain: No mass effect or acute infarct. No acute hemorrhage. Mild atrophy and chronic white matter disease, stable. Ventricles: No hydrocephalus or midline shift. Bones/joints: No skull fracture. Soft tissues: No scalp hematoma. Sinuses: Stable, opacified left sphenoid, otherwise, clear. Mastoid air cells: Progressive, mild left mastoid effusion. Right side clear. IMPRESSION: 1. Mild progressive left mastoid effusion. 2. Stable age-related findings. 3. No acute infarct, bleed, or acute intracranial abnormality. Communications: Call Doctor Stroke Electronically signed by: Nancy Brothers M.D. 02/02/23 22:03 PM Abdomen/Pelvis CT 02/02/23 21:44 Exam(s): CT ABDOMEN + PELVIS Without Contrast EXAM: CT Abdomen and Pelvis Without Intravenous Contrast CLINICAL HISTORY: Reason for exam: vomiting. TECHNIQUE: Axial computed tomography images of the abdomen and pelvis without intravenous contrast. CTDI is 13.89 mGy and DLP is 601.46 mGy-cm. Automated exposure control was utilized for the study. A dose lowering technique was utilized adhering to the principles of ALARA. Mild motion artifact. COMPARISON: None. FINDINGS: Lung bases: See separately dictated chest CT. Liver: Unremarkable. Gallbladder and bile ducts: No ductal dilation. Pancreas: No ductal dilation. Spleen: Unremarkable. Adrenals: Unremarkable. Kidneys and ureters: No stones or hydronephrosis. Stomach and bowel: Diverticulosis and severe fecal loading of the colon, with retained barium distally. No acute diverticulosis. No obstruction. Appendix: Normal. Intraperitoneal space: No free air or fluid. Bones/joints: Nonunited fracture left symphysis. Probable healing left sacral fracture. Osteoporosis. Degenerative and postsurgical change at L4-5. No acute fracture. Soft tissues: Unremarkable. Vasculature: Severe atherosclerosis. No aortic aneurysm. Lymph nodes: No enlarged lymph nodes. Bladder: No stones. Reproductive: Unremarkable as visualized. IMPRESSION: 1. Nonunited fracture of the left pubic symphysis. 2. Probable healing left sacral fracture. 3. Severe fecal loading of the colon. 4. No SBO, free air or free fluid. Electronically signed by: Nancy Brothers M.D. 02/02/23 22:[address] 02/02/23 21:44 Exam(s): CT CHEST Without Contrast EXAM: CT Chest Without Intravenous Contrast CLINICAL HISTORY: Reason for exam: aspiration? TECHNIQUE: Axial computed tomography images of the chest without intravenous contrast. CTDI is 11.45 mGy and DLP is 375.36 mGy-cm. Automated exposure control was utilized for the study. A dose lowering technique was utilized adhering to the principles of ALARA. Mild to moderate breathing motion artifact. COMPARISON: Chest CT 10/05/22. FINDINGS: Lungs: Grossly clear. Emphysema or senescent change. No consolidation. Pulmonary arteries: No engorgement. Aorta: Severe atherosclerosis. No thoracic aortic aneurysm. Pleural space: No effusion. Previously noted pleural effusions have resolved. No pneumothorax. Heart: No cardiomegaly. No significant pericardial effusion. Bones/joints: No acute fracture. Soft tissues: Stable moderate hiatal hernia. Lymph nodes: No enlarged lymph nodes. IMPRESSION: 1. Stable hiatal hernia. 2. Lungs are now clear. Electronically signed by: Nancy Brothers M.D. 02/02/23 22:15 PM Chest X-Ray 02/02/23 21:48 XR chest 1V portable HISTORY: 77 years-old Female vomiting subcutaneous nodule with vomiting and strokelike symptoms COMPARISON: Chest radiograph 11/02/2022, CT abdomen and pelvis 02/03/2023, chest CT 02/02/2023 TECHNIQUE: AP view of the chest FINDINGS: Cardiomediastinal and hilar silhouettes are unchanged. Sternotomy wires are present. There is no pneumothorax, pleural effusion or lobar airspace consolidation. Chronic interstitial coarsening with emphysema. Hiatal hernia. Degenerative changes of the shoulders and spine. Healed chronic right-sided rib fractures. IMPRESSION: 1. Emphysema without acute processes of the chest. 2. Chronic right-sided rib fractures. 3. Hiatal hernia. ACT 112: Negative or not required by law. The above report was generated using voice recognition software. It may contain grammatical, syntax or spelling errors. Electronically signed by: Angel Cullen M.D. 02/03/2023 7:17 AM Abdomen/Pelvis CT 02/03/23 06:00 CT SCAN OF THE ABDOMEN AND PELVIS WITHOUT IV CONTRAST CLINICAL HISTORY: GI bleeding. History of gastric perforation and repair. COMPARISON STUDY: Prior abdominal CT scans, most recently dated 02/02/2023. TECHNIQUE: CT scan of the abdomen and pelvis is performed from the lung bases to the proximal femora. Images are reviewed in the axial, sagittal, and coronal planes. IV contrast was not administered for this examination. Note that the examination was performed and significant suboptimal fashion without oral and IV contrast. A dose lowering technique was utilized adhering to the principles of ALARA. CT DOSE: 632.07 mGy.cm FINDINGS: Lung bases: The patient is status post midline sternotomy. The heart is normal in size and without pericardial effusion. The coronary arteries are densely calcified. Advanced emphysematous change is seen at the lung bases. There is bibasilar scarring/atelectasis. Trace pleural effusion is noted on the right. Liver: The unenhanced liver is normal in size, contour, and attenuation. There is no intrahepatic biliary ductal dilatation. Gallbladder: Surgically absent noting clips in the gallbladder fossa. Spleen: Normal in size and attenuation. Pancreas: The unenhanced pancreas is moderately atrophic and grossly unremarkable. Adrenal glands: Unremarkable. Kidneys: The unenhanced kidneys are normal in size and without hydronephrosis. No renal calculi are identified. Simple and complex renal cysts measure up to 14 mm. Abdominal vasculature: The abdominal aorta is normal in course and caliber noting advanced atherosclerotic calcification. Stomach and bowel: There is a [id number] hiatal hernia. Residual enteric contrast is noted in the colon. A percutaneous jejunostomy is in place. No bowel obstruction is seen. There is advanced diverticulosis of left colon without CT evidence of acute diverticulitis. The appendix is well-visualized and normal. Peritoneum: No intraperitoneal free air is identified. A small amount of hyperdense material is again seen posterior to the liver and in the paracolic gutters. This is similar previous and may represent extraluminal contrast. No organized fluid collection is seen on this unenhanced examination. Lymphadenopathy: None. Pelvic viscera: The bladder is normal as visualized. The uterus is atrophic ve rsus surgically absent. No adnexal lesion is seen. Skeletal structures: The skeletal structures are osteopenic. There is advanced lumbosacral spondylosis. Post laminectomy changes noted in the lumbar spine. No lytic or blastic lesions are seen. There are bilateral sacral insufficiency fractures. There are subacute versus nonunited parasymphyseal left pubic ring fractures. Chronic/healed right-sided rib fractures are noted. IMPRESSION: 1. Significantly suboptimal examination without oral and IV contrast. 2. A percutaneous jejunostomy is in place. No bowel obstruction is seen. 3. Hyperdense material is again seen in the abdomen and pelvis, likely representing extraluminal enteric contrast. This is similar to prior studies. 4. Advanced emphysema. 5. Colonic diverticulosis without CT evidence of acute diverticulitis. 6. Additional findings as above. ACT 112: Negative or not required by law. Electronically signed by: Jagdish Pham M.D. 02/03/2023 7:19 AM Chest X-Ray 02/03/23 17:57 XR chest 1V portable CLINICAL HISTORY: Hypoxia TECHNIQUE: Single frontal radiograph of the chest was obtained. Comparison: Comparison is made to chest radiograph 01/25/2023 FINDINGS: Median sternotomy wires are unchanged. The aorta is tortuous. The remainder of the cardiomediastinal silhouette is unremarkable. The lungs are clear. No e vidence of pleural effusion or pneumothorax. IMPRESSION: No acute abnormalities and in particular no radiographic evidence of pneumonia. ACT 112: Negative or not required by law. Electronically signed by: Emerson Quintero M.D. 02/03/2023 6:22 PM Medications Administered Home Medications Medication Instructions Recorded Confirmed Last Taken acetaminophen 325 mg tablet 650 mg PO Q6 PRN Fever Or Pain 02/02/23 02/02/23 Unknown (Tylenol) atorvastatin 80 mg tablet 80 mg PO HS 02/02/23 02/02/23 Unknown calcium carbonate 1,000 mg tablet 1,250 mg PO DAILY 02/02/23 02/02/23 Unknown cholecalciferol (vitamin D3) 125 125 mcg PO DAILY 02/02/23 02/02/23 Unknown mcg (5,000 unit) tablet (Vitamin D3) dronabinol 5 mg capsule 5 mg PO DAILY 02/02/23 02/02/23 Unknown ferrous sulfate 325 mg (65 mg 325 mg PO DAILY 02/02/23 02/02/23 Unknown iron) tablet folic acid 1 mg tablet 1 mg PO DAILY 02/02/23 02/02/23 Unknown latanoprost 0.005 % eye drops 1 drp OPB HS 02/02/23 02/02/23 Unknown magnesium chloride 64 mg 64 mg PO DAILY 02/02/23 02/02/23 Unknown (magnesium chloride) tablet melatonin 3 mg tablet 3 mg PO HS 02/02/23 02/02/23 Unknown metoclopramide HCl 5 mg tablet 5 mg PO TID 02/02/23 02/02/23 Unknown metoprolol tartrate 25 mg tablet 25 mg PO Q12 02/02/23 02/02/23 Unknown mirtazapine 15 mg tablet 15 mg PO HS 02/02/23 02/02/23 Unknown nitroglycerin 0.4 mg sublingual 0.4 mg sublingual DIRECTED PRN 02/02/23 02/02/23 Unknown tablet (Nitrostat) Chest Pain ondansetron HCl 4 mg tablet 4 mg PO Q4 PRN Nausea 02/02/23 02/02/23 Unknown pantoprazole 40 mg tablet,delayed 40 mg PO BID 02/02/23 02/02/23 Unknown release potassium chloride 10 mEq 10 meq PO DAILY 02/02/23 02/02/23 Unknown tablet,extended release sertraline 50 mg tablet (Zoloft) 50 mg PO DAILY 02/02/23 02/02/23 Unknown timolol maleate 0.5 % eye drops 1 drp OPB DAILY 02/02/23 02/02/23 Unknown Active Medications Generic Name Dose Route Start Last Admin Trade Name Freq PRN Reason Stop Dose Admin Dronabinol 5 mg 02/03/23 09:00 02/03/23 10:56 Dronabinol 2.5 Mg Cap PO 03/05/23 08:59 5 mg DAILY SHELDON Administration Ferrous Sulfate 325 mg 02/03/23 09:00 02/03/23 10:57 Ferrous Sulfate 325 Mg Tab PO 03/05/23 08:59 325 mg DAILY SHELDON Administration Folic Acid 1 mg 02/03/23 09:00 02/03/23 10:57 Folic Acid 1 Mg Tab PO 03/05/23 08:59 1 mg DAILY SHELDON Administration Sodium Chloride 1,000 mls @ 100 mls/hr 02/03/23 02:28 02/03/23 17:57 Nss IV 03/05/23 02:27 0 mls/hr .Q10H SHELDON Infusion Lorazepam 2 mg/ Syringe 2 mls @ 2 mls/min 02/03/23 02:28 02/03/23 18:23 IV 03/05/23 02:27 1 mls/min Q2H PRN Administration Breakthrough Seizures Pantoprazole Sodium 40 mg/ 100 mls @ 20 mls/hr 02/03/23 06:15 02/03/23 18:00 Dextrose IV 03/05/23 06:14 8 mg/hr Q5H SHELDON 20 mls/hr Administration 8 MG/HR Magnesium Chloride 64 mg 02/03/23 09:00 02/03/23 10:57 Magnesium Chloride W/Calcium 64mg Delayed Rel Tab PO 03/05/23 08:59 64 mg DAILY SHELDON Administration Metoprolol Tartrate 25 mg 02/03/23 09:00 02/03/23 10:57 Metoprolol Tartrate 25 Mg Tab PO 03/05/23 08:59 Not Given Q12 SHELDON Potassium Chloride 10 meq 02/03/23 09:00 02/03/23 10:57 Potassium Chloride 10 Meq Tabcr PO 03/05/23 08:59 10 meq DAILY SHELDON Administration Sertraline HCl 50 mg 02/03/23 09:00 02/03/23 10:57 Sertraline Hcl 50 Mg Tablet PO 03/05/23 08:59 50 mg DAILY SHELDON Administration Timolol Maleate 1 drops 02/03/23 09:00 12/29/23 08:47 Timolol Maleate 0.5% Op Soln 5 Ml Btl OP 03/05/23 08:59 1 drops DAILY SHELDON Administration
[2023-02-03 19:09] LABS: Total Protein CSF 36.3 mg/dl (15-45)
[2023-02-03 19:23] LABS: Appearance CSF Clear; CSF Count Tube # 3; CSF Xanthrochromic No xanthochromia; Color CSF Colorless
[2023-02-03 19:24] LABS: Red Blood Cell CSF Auto 1 /uL (0-); Red Blood Cell CSF Manual 1 (0-); White Blood Cell CSF Auto 1 /uL (0-5); White Blood Cell CSF Manual 1 (0-5)
[2023-02-03 20:15] LABS: Cryptococcus neoformans/ga PCR Not Detected (NotDetected); Cytomegalovirus PCR Not Detected (NotDetected); Enterovirus PCR Not Detected (NotDetected); Escherichia coli K1 PCR Not Detected (NotDetected); Haemophilius influenzae PCR Not Detected (NotDetected); Herpes Simplex Virus 1 PCR Not Detected (NotDetected); Herpes Simplex Virus 2 PCR Not Detected (NotDetected); Human Herpes Virus 6 PCR Not Detected (NotDetected); Human Parechovirus PCR Not Detected (NotDetected); Listeria monocytogenes PCR Not Detected (NotDetected); Neisseria meningitidis PCR Not Detected (NotDetected); Streptococcus agalactiae PCR Not Detected (NotDetected); Streptococcus pneumoniae PCR Not Detected (NotDetected); Varicella Zoster Virus PCR Not Detected (NotDetected)
[2023-02-03] MEDS ORDERED: MINI B IV SCH (21:00)
[2023-02-03] MEDS ORDERED: LEVETIRACETAM IV SCH (21:00)
[2023-02-03] MEDS ORDERED: MELATONIN 3 MG TAB PO SCH (21:00)
[2023-02-03] MEDS ORDERED: SODIUM CHLOR 0.9% IV SCH (21:00)
[2023-02-03] MEDS ORDERED: MIRTAZAPINE TAB 15 MG TAB PO SCH (21:00)
--- NOTE | 2023-02-03 21:05 | Pharmacy Report ---
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 Pertinent microbiologic data includes: blood, urine, and CSF cultures pending. Previously on Zosyn. Day # 1 of antimicrobial therapy. Plan Vancomycin * Loading dose: 1250 mg IV x 1 * Will dose further vancomycin per levels due to elevated creatinine. Goal vancomycin level 15-20mcg/mL * Random level ordered for: 02/04/23 with AM labs Pharmacy will continue to follow and will adjust dose/frequency as necessary. Thank you. Pharmacy has transitioned to AUC monitoring for vancomycin. AUC/ALONSO is the preferred PK/PD target and is associated with decreased risk of nephrotoxicity compared to traditional trough targets.
[2023-02-03 21:34] LABS: Hematocrit (blood only) 29.7 % (37.0-47.0); Hemoglobin 9.1 g/dl (12.0-16.0)
[2023-02-03] MEDS: ATORVASTATIN 40 MG TAB PO SCH (22:43)
[2023-02-03] MEDS: levETIRAcetam 1,000 MG in 0.9 % SODIUM CHLORIDE 100 ML IV SCH (22:44)
[2023-02-03] MEDS: LATANOPROST 0.005% OP SOLN 2.5 ML BTL OPB SCH (22:45)
--- NOTE | 2023-02-03 23:51 | Magnetic Resonance Report ---
Exam(s): MRI HEAD Without Contrast EXAM: MR Head Without Intravenous Contrast CLINICAL HISTORY: Reason for exam: Seizures. TECHNIQUE: Magnetic resonance images of the head/brain without intravenous contrast in multiple planes. Mild to moderate motion artifact. COMPARISON: None. FINDINGS: Brain: No mass effect or acute infarct. No acute hemorrhage. Moderate atrophy and chronic white matter disease. Incidental dilated perivascular spaces bilateral basal ganglia. Ventricles: No hydrocephalus or midline shift. Bones/joints: No skull lesion. Soft tissues: No scalp hematoma. Sinuses: Moderate sphenoid, mild left maxillary and ethmoid mucosal thickening, stable, likely chronic. Mastoid air cells: Stable left mastoid effusion. IMPRESSION: 1. Moderate age-related findings. 2. Stable sinus disease and left mastoid effusion, may be chronic. 3. No acute infarct, bleed, or acute intracranial abnormality. 4. Mild to moderate motion artifact. Electronically signed by: Nancy Brothers M.D. 02/03/23 23:49 PM
[2023-02-04] MEDS: PANTOprazole 40 MG in DEXTROSE 5% MINI-B 100 ML IV SCH ×5 (00:24→20:41)
[2023-02-04] MEDS: AMPICILLIN 2,000 MG in SODIUM CHLOR 0.9% MINI-B 100 ML IV SCH ×3 (02:05→17:00)
[2023-02-04] MEDS: SODIUM CHLORIDE 0.9% 1,000 ML IV SCH (04:03)
[2023-02-04 04:38] LABS: Adenovirus PCR Not Detected (NotDetected); Bordetella parapertussis PCR Not Detected (NotDetected); Bordetella pertussis PCR Not Detected (NotDetected); Chlamydia pneumoniae PCR Not Detected (NotDetected); Coronavirus 229E PCR Not Detected (NotDetected); Coronavirus CoV-2 (COVID19)PCR Not Detected (NotDetected); Coronavirus HKU1 PCR Not Detected (NotDetected); Coronavirus NL63 PCR Not Detected (NotDetected); Coronavirus OC43PCR Not Detected (NotDetected); Human Metapneumovirus PCR Not Detected (NotDetected); Influenza B PCR Not Detected (NotDetected); Mycoplasma pneumoniae PCR Not Detected (NotDetected); Parainfluenza Virus 1 PCR Not Detected (NotDetected); Parainfluenza Virus 2 PCR Not Detected (NotDetected); Parainfluenza Virus 3 PCR Not Detected (NotDetected); Parainfluenza Virus 4 PCR Not Detected (NotDetected); Respiratory Syncytial VirusPCR Not Detected (NotDetected); Rhinovirus/Enterovirus PCR Not Detected (NotDetected)
[2023-02-04] MEDS ORDERED: MoRPHine SULFATE 2 MG/ML CARP IV STA ×2 (04:51→20:52)
[2023-02-04 04:52] LABS: Influenza A (H1 2009) PCR DETECTED (NotDetected)
[2023-02-04] MEDS ORDERED: FUROSEMIDE 40 MG/4 ML VIAL IV ONE (05:24)
[2023-02-04 05:38] LABS: BUN Creatinine Ratio 20.7 (10-20); Calcium 9.5 mg/dl (8.6-10.3); Creatinine Clr Calc Pharmacy 22.7 ml/min; Est GFR (African American) 31.1 ml/min; Est GFR (Non-African American) 26.9 ml/min; Potassium 3.9 mmol/L (3.5-5.1)
[2023-02-04 05:49] LABS: Hematocrit (blood only) 34.5 % (37.0-47.0); Hemoglobin 10.6 g/dl (12.0-16.0); Mean Corpuscular Hemoglobin 23.4 pg (25.0-34.0); Mean Corpuscular Hgb Conc 30.7 g/dL (32.0-36.0); Mean Corpuscular Volume 76.2 fL (80.0-100.0); Mean Platelet Volume 11.4 fL (9.4-12.4); Platelet Count 249 K/uL (130-400); RDW Coefficient of Variation 18.6 % (11.5-14.5); RDW Standard Deviation 50.9 fL (36.4-46.3); Red Blood Count 4.53 M/uL (4.20-5.40); White Blood Count 10.14 K/ul (4.8-10.8)
[2023-02-04] MEDS: cefTRIAXone SODIUM 2,000 MG in DEXTROSE 5 % MINI-B 50 ML IV SCH ×2 (05:54→17:00)
[2023-02-04] MEDS: TIMOLOL MALEATE 0.5% OP SOLN 5 ML BTL OP SCH (08:01)
[2023-02-04] MEDS: SERTRALINE HCL 50 MG TABLET PO SCH (08:01)
[2023-02-04] MEDS: droNABinol 2.5 MG CAP PO SCH (08:01)
[2023-02-04] MEDS: METOPROLOL TARTRATE 25 MG TAB PO SCH ×2 (08:01→20:45)
--- NOTE | 2023-02-04 08:01 | XRay Report ---
XR chest 1V portable HISTORY: 77 years-old Female sob acute shortness of breath COMPARISON: 02/03/2023 TECHNIQUE: AP view of the chest FINDINGS: Cardiac mediastinal and hilar silhouettes are unchanged. Median sternotomy. Pulmonary vascular conges tion. See above. Chronic interstitial coarsening without pneumothorax, or pleural effusion. Mild asym metric right basilar opacities. Degenerative changes of the shoulders and spine. Ill-defined chronic right-sided rib fractures. Hiatal hernia. Partially imaged cervical spinal fusion hardware. IMPRESSION: 1. Cardiomegaly with pulmonary vascular congestion. 2. Emphysema with chronic interstitial coarsening. 3. Mild asymmetric right basilar opacities. Correlate clinically to exclude developing pneumonia. ACT 112: Negative or not required by law. The above report was generated using voice recognition software. It may contain grammatical, syntax o r spelling errors. Electronically signed by: Angel Cullen M.D. 02/04/2023 8:00 AM
[2023-02-04] MEDS: levETIRAcetam 1,000 MG in 0.9 % SODIUM CHLORIDE 100 ML IV SCH ×2 (08:36→20:41)
[2023-02-04] MEDS ORDERED: VANCOMYCIN HCL 1,000 MG in SODIUM CHLORIDE 0.9% 250 ML IV ONE (09:30)
[2023-02-04] MEDS ORDERED: LABETALOL HCL IV 5 MG/ML 20ML IV PRN (10:19)
--- NOTE | 2023-02-04 10:46 | Pharmacy Report ---
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 Pertinent microbiologic data includes: blood culture NGTD, urine, and CSF cultures pending. MRSA nasal (+). SCr 2.28 -->1.79mg/dL. Day # 2 of antimicrobial therapy. Plan Vancomycin * Random level this AM, 11.7mcg/mL (~8 hr level)- safe to re-dose. * Vanc 1gm IV X 1 now. Will repeat a level this evening given improving renal function and drug clearance after 8 hours. May require re-dose tonight. Pharmacy will continue to follow and will adjust dose/frequency as necessary. Thank you. Pharmacy has transitioned to AUC monitoring for vancomycin. AUC/ALONSO is the preferred PK/PD target and is associated with decreased risk of nephrotoxicity compared to traditional trough targets.
[2023-02-04] MEDS: OSELTAMIVIR PHOSPHATE SUSP 30 MG/5 ML UDP PO SCH (11:32)
--- NOTE | 2023-02-04 20:36 | Hospitalist Progress Note ---
Date of Service February 04, 2023 Assessment & Plan (1) Seizure-like activity: Plan: Patient is a 77 yr male with H/O SIADH, CAD, s/p CABG, hypertension GERD, primary open-angle glaucoma, iron deficiency anemia, depression, history of DVT, patient had prolonged hospital stay in September and October 2022 with perforated gastric ulcer and had diagnostic laparoscopy and repair of gastric ulcer on September 17, 2022. Treated with IV antibiotics. And also she underwent right abdominal pigtail catheter on September 28, 2022 by IR and was removed after minimal output. Patient again had IR drain placement in right upper abdominal October 11, 2022 per surgery recommendation and subsequently was taken out. At the time she was also in ICU for aspiration pneumonia and severe sepsis septic shock.She also had G-tube placement. Patient was discharged to [facility] group home. Patient currently eats but she also gets 50 mill per hour for 12 hours of tube feeds. Currently not doing much in PT. Patient was brought in from group home because of seizure-like activity around 7:30 PM. She witnessed seizure at group home. Currently seems postictal. Imaging studies are okay in the ER. Sodium 133, potassium 3.2, creatinine 2.2 and lactic acid came at 5.9 and calcium 11.4. Patient currently very drowsy. Grimaces with painful stimuli. Moves extremities on painful stimuli. Hemodynamically stable. Confirmed with the daughter the patient is DNR. As per group home no recent fevers. No recent cough. As per group home had 1 episode of vomiting yesterday. No diarrhea. Otherwise she is alert and oriented as per group home. As per daughter sometimes her cognitive status is not a great. Seizure-like activity Acute metabolic encephalopathy Abnormal urinalysis--rule out UTI DD:? Polypharmacy Suspected Acute meningitis Mental status waxes and wanes at baseline as per patient's family. --CT head:Mild progressive left mastoid effusion. Stable age-related findings. No acute infarct, bleed, or acute intracranial abnormality. --EEG:This is an abnormal routine EEG due to generalized background slowing suggestive of a non specific encephalopathy. No epileptiform activity is seen. --MRI Brain:Moderate age-related findings. Stable sinus disease and left mastoid effusion, may be chronic. No acute infarct, bleed, or acute intracranial abnormality. Mild to moderate motion artifact. --Toxicology positive for marijuana --Chronic mastoid effusion also seen on prior imaging --Lactic acidosis resolved with IV fluids --Blood culture negative to date -- urine cultures negative to date --Continue empiric Zosyn>> transition to vancomycin, ceftriaxone, ampicillin --Continue IV Keppra Hold sedating medications Aspiration, fall, seizure precautions Neurology consulted Continue IV fluids--held as developing volume overload Reorient frequently to minimize delirium Ativan as needed for seizures Infectious disease consulted Aspiration precautions Acute respiratory failure with hypoxia and hypercarbia Likely aspiration pneumonia Chest x-ray suggestive of pulmonary vascular congestion, findings suggestive of developing pneumonia On empiric antibiotics as above BiPAP for respiratory support Consulted pulmonology Will repeat chest x-ray tomorrow Aggressive pulmonary hygiene IV fluids held for now Mildly elevated troponin Likely demand ischemia EKG showed no signs of acute ischemia Suspected GI bleed Acute on chronic anemia Iron deficiency anemia No obvious source of bleed currently S/P 2 units PRBCs Hb 6.6>>8.1>10.6 Bowel rest for today Continue Protonix drip Appreciate GI input Monitor H&H and transfuse PRBCs as needed Chronic rib fractures Nonunited fracture of left pubic symphysis Probable healing left sacral fracture Incidental findings on imaging studies Fall precautions PT OT as able CAL on CKD II-III Cr 2.2>2.0>1.7 Avoid nephrotoxic agents as able Monitor renal function Received IV fluids Chronic hyponatremia H/O SIADH Sodium 133>135>136 Currently clinically dehydrated Monitor sodium levels Hypokalemia Replace and Monitor H/o CAD s/p CABG On statin and beta-irene H/O Perforated gastric ulcer s/p repair Currently no acute obvious bleeding issues Continue Protonix Iron deficiency anemia Continue Iron supplements Depression On Remeron and Zoloft Resume home medications as able Nutrition Will consult Trumpet Teacher for tube feeds when appropriate gets tube feeds 50ml/hr for 12hrs in night time. Poor oral intake currently DVT Px SCDs Re: significant anemia, concern for GI bleed CODE STATUS DNR/DNI Disposition PT OT prior to discharge Admission and Anticipated Discharge Date Admission Date: February 03, 2023 Subjective Patient is seen and examined at bedside Mental status remains altered today Patient developed hypoxia requiring BiPAP placement Discussed with daughter at bedside Patient unable to provide any history currently Suctioned thick white secretions by respiratory therapist today No seizure activity overnight CSF studies not contributory Cultures negative to date Review of Systems Review of Systems: Other Physical Exam Physical Exam: Physical Exam: Vitals signs as noted above General Appearance: Thin, frail, ill-appearing, elderly, mild distress Head: normocephalic, Atraumatic Eyes: normal inspection, EOMI Neck: supple, Trachea midline Respiratory/Chest: Coarse breath sounds, No accessory muscle use Cardiovascular: S1, S2, No murmur Abdomen/GI:Soft, Non tender, + J tube, Bowel sounds present Extremities/Musculoskeletal:normal inspection, no edema Neurologic/Psych:Drowsy, unable to perform complete neurological exam Skin: normal color, warm Results & Data Results & Data Vital Signs (Past 12 Hours) Vital Signs Temp Pulse Pulse Resp BP BP Pulse Ox 02/04/23 19:46 37.4 C 110 H 30 H 145/84 H 94 02/04/23 19:43 107 H 32 H 94 02/04/23 17:00 108 H 02/04/23 17:00 02/04/23 16:32 36.6 C 103 H 24 168/76 H 98 02/04/23 14:24 96 H 27 H 105 H 02/04/23 14:01 95/65 L 02/04/23 14:01 101 H 30 H 96 02/04/23 14:00 100 H 27 H 96 02/04/23 13:00 97 H 27 H 96 02/04/23 13:00 80/52 L 02/04/23 12:01 100 H 28 H 93 02/04/23 12:01 96/62 L 02/04/23 12:00 100 H 32 H 93 02/04/23 11:44 99 H 30 H 92 02/04/23 11:01 100 H 26 H 97 02/04/23 11:01 97/65 L 02/04/23 11:00 100 H 19 96 02/04/23 10:01 113/79 02/04/23 10:01 105 H 24 99 02/04/23 10:00 104 H 26 H 98 02/04/23 09:01 132/77 02/04/23 09:01 107 H 32 H 98 02/04/23 09:00 108 H 28 H 98 02/04/23 08:27 115 H O2 Del Method FiO2 02/04/23 19:46 BiPAP 02/04/23 19:43 30 02/04/23 17:00 02/04/23 17:00 BiPAP 02/04/23 16:32 CPAP 02/04/23 14:24 30 02/04/23 14:01 02/04/23 14:01 02/04/23 14:00 02/04/23 13:00 02/04/23 13:00 02/04/23 12:01 02/04/23 12:01 02/04/23 12:00 02/04/23 11:44 30 02/04/23 11:01 02/04/23 11:01 02/04/23 11:00 02/04/23 10:01 02/04/23 10:01 02/04/23 10:00 02/04/23 09:01 02/04/23 09:01 02/04/23 09:00 02/04/23 08:27 Laboratory Results Short CBC 02/03/23 02/04/23 Range/Units 20:40 04:10 WBC 10.14 (4.8-10.8) K/ul Hgb 9.1 L 10.6 L (12.0-16.0) g/dl Hct 29.7 L 34.5 L (37.0-47.0) % Plt Count 249 (130-400) K/uL BMP 02/04/23 04:10 Sodium 136 Potassium 3.9 Chloride 106 Carbon Dioxide 21 BUN 37 H Creatinine 1.79 H Glucose 73 Calcium 9.5
[2023-02-04] MEDS: LATANOPROST 0.005% OP SOLN 2.5 ML BTL OPB SCH (20:42)
[2023-02-04] MEDS: ATORVASTATIN 40 MG TAB PO SCH (20:44)
[2023-02-04] MEDS ORDERED: LEVALBUTEROL 1.25MG/0.5ML NEB NEB STA (21:05)
[2023-02-04] MEDS ORDERED: VANCOMYCIN HCL 500 MG in NSS 100mL IV ONE (21:15)
[2023-02-04] MEDS: LORazepam 2 MG in SYRINGE 1 ML IV PRN (21:18)
[2023-02-04 21:33] LABS: Base Excess ABG -4.8 mEq/L (-9-1.8); HCO3 ABG 21 mmol/L (19-24); Oxygen Saturation ABG 98.3 % (90-95); PCO2 ABG 38 mmHg (35-46); PO2 ABG 91 mmHg (80-95); pH ABG 7.34 (7.35-7.45)
[2023-02-04 21:45] LABS: Allen Test Pos (Pos)
[2023-02-04 22:17] LABS: BUN Creatinine Ratio 17.2 (10-20); Calcium 9.3 mg/dl (8.6-10.3); Creatinine Clr Calc Pharmacy 18.9 ml/min; Est GFR (African American) 24.9 ml/min; Est GFR (Non-African American) 21.5 ml/min; Magnesium 1.5 mg/dl (1.7-2.4); Potassium 3.1 mmol/L (3.5-5.1)
[2023-02-04] MEDS: metroNIDAZOLE 500 MG/100 ML BAG IV SCH (22:19)
[2023-02-04] MEDS ORDERED: LEVALBUTEROL 1.25 MG/3 ML NEB ONE (23:01)
[2023-02-05] MEDS: AMPICILLIN 2,000 MG in SODIUM CHLOR 0.9% MINI-B 100 ML IV SCH ×2 (01:45→09:21)
[2023-02-05] MEDS: PANTOprazole 40 MG in DEXTROSE 5% MINI-B 100 ML IV SCH ×5 (01:51→21:25)
[2023-02-05] MEDS ORDERED: LORazepam 0.5 MG in SYRINGE 0.25 ML IV STA (02:01)
[2023-02-05] MEDS ORDERED: MoRPHine SULFATE 2 MG/ML CARP IV STA (02:44)
[2023-02-05] MEDS: cefTRIAXone SODIUM 2,000 MG in DEXTROSE 5 % MINI-B 50 ML IV SCH ×2 (06:29→17:12)
[2023-02-05] MEDS: metroNIDAZOLE 500 MG/100 ML BAG IV SCH ×3 (06:32→21:20)
[2023-02-05 06:43] LABS: Hematocrit (blood only) 29.2 % (37.0-47.0); Hemoglobin 9.3 g/dl (12.0-16.0); Mean Corpuscular Hemoglobin 23.8 pg (25.0-34.0); Mean Corpuscular Hgb Conc 31.8 g/dL (32.0-36.0); Mean Corpuscular Volume 74.9 fL (80.0-100.0); Mean Platelet Volume 10.6 fL (9.4-12.4); Platelet Count 215 K/uL (130-400); RDW Coefficient of Variation 19.1 % (11.5-14.5); RDW Standard Deviation 51.8 fL (36.4-46.3); White Blood Count 9.79 K/ul (4.8-10.8)
[2023-02-05 06:45] LABS: Base Excess ABG -3.3 mEq/L (-9-1.8); HCO3 ABG 24 mmol/L (19-24); PCO2 ABG 51 mmHg (35-46); PO2 ABG 93 mmHg (80-95); pH ABG 7.28 (7.35-7.45)
[2023-02-05 07:18] LABS: BUN Creatinine Ratio 16.7 (10-20); Calcium 8.9 mg/dl (8.6-10.3); Creatinine Clr Calc Pharmacy 17.9 ml/min; Est GFR (African American) 24.9 ml/min; Est GFR (Non-African American) 21.5 ml/min; Magnesium 1.5 mg/dl (1.7-2.4); Potassium 2.8 mmol/L (3.5-5.1)
--- NOTE | 2023-02-05 07:20 | XRay Report ---
SINGLE VIEW CHEST CLINICAL HISTORY: Respiratory failure FINDINGS: An AP, portable, upright chest radiograph is compared to study dated 02/04/2023 and correla sandhya with chest CT dated 02/02/2023. The examination is degraded by portable technique and apical lord otic positioning. The patient is status post midline sternotomy. The heart is top normal for projecti on noting atherosclerotic calcification of the thoracic aorta. Emphysema and chronic interstitial thi ckening is similar to previous. There is bibasilar scarring/atelectasis. No airspace consolidation or large pleural effusion is identified. No pneumothorax is seen. The skeletal structures are osteopeni c. There are chronic/healed right-sided rib fractures. IMPRESSION: 1. Emphysematous change with no acute cardiopulmonary abnormality identified. 2. Pulmonary vascular congestion has improved from yesterday. ACT 112: Negative or not required by law. Electronically signed by: Jagdish Pham M.D. 02/05/2023 7:19 AM
[2023-02-05] MEDS: droNABinol 2.5 MG CAP PO SCH (08:06)
[2023-02-05] MEDS: levETIRAcetam 1,000 MG in 0.9 % SODIUM CHLORIDE 100 ML IV SCH ×2 (08:06→20:56)
[2023-02-05] MEDS: POTASSIUM CHLORIDE / WTR 10 MEQ/100 ML PLCT IV SCH ×6 (08:07→13:21)
[2023-02-05] MEDS: TIMOLOL MALEATE 0.5% OP SOLN 5 ML BTL OP SCH (08:07)
[2023-02-05] MEDS: MAGNESIUM SULFATE / D5W 1 GM/100 ML BAG IV SCH ×2 (08:07→10:07)
[2023-02-05] MEDS: SERTRALINE HCL 50 MG TABLET PO SCH (08:12)
[2023-02-05] MEDS: OSELTAMIVIR PHOSPHATE SUSP 30 MG/5 ML UDP PO SCH (08:12)
[2023-02-05] MEDS: METOPROLOL TARTRATE 25 MG TAB PO SCH ×2 (08:12→21:10)
--- NOTE | 2023-02-05 08:38 | Pulmonary Consultation ---
Date of Consultation February 05, 2023 Assessment & Plan (1) Acute respiratory failure with hypoxia and hypercapnia: (2) Metabolic encephalopathy: (3) COPD with emphysema: Plan CT chest 02/02/2023 personally reviewed: Severe centrilobular emphysema appreciated bilaterally upper and lower lobes Right lower lobe peripheral pulmonary nodule Moderate hiatal hernia No significant mediastinal lymphadenopathy 2D echo 10/13/2022: EF 70%, RV not well visualized, grade 2 diastolic dysfunction --Acute hypercapnic hypoxic respiratory failure ABG 02/05/2023: 7. on 8 L Hypercapnia is most likely from seizure activity as well as sedating medications on top of COPD Hypoxia is just from underlying COPD, no clear signs of pneumonia on the CT chest Continue with O2 supplementation to keep oxygen saturation between 90-92% --COPD Not on any inhalers at home -- Ex-smoker > [id number] smoking history Quit in 2019 Plan:- Start the patient on 7% hypertonic saline, Mucomyst nebulized along with Brovana and budesonide Patient's mentation is the main issue. I doubt pulmonary etiology for her altered mental status. Hypercapnia is not that bad. Underlying seizure activity could be one of the possibilities There is no clear evidence of pneumonia on the CT chest. Okay to discontinue antibiotics from pulmonary perspective Overall prognosis is guarded Please note the above document was generated using voice recognition software. It may contain grammatical, syntax or spelling errors.Any formal questions or concerns about the content, text or information contained within the body of this dictation should be directly addressed to the provider for clarification. History of Present Illness Attending Physician: Luan Shaw MD History of Present Illness 77-year-old female who was admitted to the hospital with perforated gastric ulcer and underwent laparotomy Past medical history: COPD, dyslipidemia, coronary artery disease s/p CABG, hypertension Pulmonary consulted for hypoxia At the time of examination patient was on BiPAP 01/11, 30% saturating 95-96%. She was breathing in the mid to high 20s. Unfortunately she was not following any commands She did get morphine and some Ativan around 2-3 AM. As per the nurse patient has been having thick secretions which are difficult to suction out. History was obtained from RN at bedside as well as previous chart Temperature Max 37.7 Social history: Greater than [id number] smoking history, quit in 2019 Allergies Allergy/AdvReac Type Severity Reaction Status Date / Time dorzolamide Allergy Intermediate Itchy, Verified 02/02/23 23:12 redness, irritated eyes iodine Allergy Intermediate Rash Verified 02/02/23 23:12 latex Allergy Intermediate Rash Verified 02/02/23 23:12 tositumomab iodine-131 Allergy Unknown Unknown Verified 02/02/23 23:12 Home Medications Medication Instructions Recorded Confirmed Type acetaminophen 325 mg tablet 650 mg PO Q6 PRN Fever Or Pain 02/02/23 02/02/23 History (Tylenol) atorvastatin 80 mg tablet 80 mg PO HS 02/02/23 02/02/23 History calcium carbonate 1,000 mg tablet 1,250 mg PO DAILY 02/02/23 02/02/23 History cholecalciferol (vitamin D3) 125 125 mcg PO DAILY 02/02/23 02/02/23 History mcg (5,000 unit) tablet (Vitamin D3) dronabinol 5 mg capsule 5 mg PO DAILY 02/02/23 02/02/23 History ferrous sulfate 325 mg (65 mg 325 mg PO DAILY 02/02/23 02/02/23 History iron) tablet folic acid 1 mg tablet 1 mg PO DAILY 02/02/23 02/02/23 History latanoprost 0.005 % eye drops 1 drp OPB HS 02/02/23 02/02/23 History magnesium chloride 64 mg 64 mg PO DAILY 02/02/23 02/02/23 History (magnesium chloride) tablet melatonin 3 mg tablet 3 mg PO HS 02/02/23 02/02/23 History metoclopramide HCl 5 mg tablet 5 mg PO TID 02/02/23 02/02/23 History metoprolol tartrate 25 mg tablet 25 mg PO Q12 02/02/23 02/02/23 History mirtazapine 15 mg tablet 15 mg PO HS 02/02/23 02/02/23 History nitroglycerin 0.4 mg sublingual 0.4 mg sublingual DIRECTED PRN 02/02/23 02/02/23 History tablet (Nitrostat) Chest Pain ondansetron HCl 4 mg tablet 4 mg PO Q4 PRN Nausea 02/02/23 02/02/23 History pantoprazole 40 mg tablet,delayed 40 mg PO BID 02/02/23 02/02/23 History release potassium chloride 10 mEq 10 meq PO DAILY 02/02/23 02/02/23 History tablet,extended release sertraline 50 mg tablet (Zoloft) 50 mg PO DAILY 02/02/23 02/02/23 History timolol maleate 0.5 % eye drops 1 drp OPB DAILY 02/02/23 02/02/23 History Patient History Medical History (Updated 02/05/23 @ 11:23 by Shanna Russell MD, [facility]) skilled nursing resident Currently residing at [facility] in [place] Muscle weakness (generalized) Nutritional deficiency Metabolic encephalopathy Critical illness myopathy Pressure ulcer of sacral region Diarrhea Anemia Dysphagia Essential (primary) hypertension Insomnia Hyperlipidemia Atherosclerotic heart disease Aspiration pneumonitis Pulmonary aspergillosis COPD with emphysema Perforated gastric ulcer Depression Coronary artery disease Surgical History (Updated 12/02/22 @ 11:34 by Tiffany Kramer RN) History of esophagogastroduodenoscopy (12/01/22) Esophagogastroduodenoscopy, esophageal brushings(Not Applicable) - John Rivera DO History of surgery Diagnostic Laparoscopy, Placement of Jejunal Feeding Tube H/O abdominal surgery Diagnostic Laparoscopy, Repair of Perforated Gastic Ulcer, Tavo patch abdominal Washout Status post incision and drainage Incision and Drainage of Face Tooth Extraction #31 History of total hysterectomy History of cholecystectomy History of coronary artery bypass graft Family History Other Family history unknown Social History Smoking Status: Unknown if ever smoked Tobacco Type: Cigarettes Preferred Language: Arabic Communication Ability: Impaired Communication Ability Comment: per Magda pt is of sound mind to sign consents Product Trainer Required: No Beliefs That Will Affect Care: None Current Living Situation: Long-Term and Personal Care Facility Current Living Situation Comment: [facility] Other Information That Helps Us Care for You: No Feels Safe at Home: Yes Assistive Devices: Other Review of Systems 2 Review of Systems: Unobtainable due to cognitive status Physical Exam 2 Physical Exam: Constitutional: In respiratory distress HEENT: Pupils are 4 mm, sluggish response Respiratory system: Decreased air entry bilaterally, no wheeze, no rhonchi, mild crackles bilateral lower lobes CVS: S1-S2 positive, no murmurs or gallops, tachycardia Abdomen: Soft, nontender, nondistended, positive bowel sounds x4 Extremities: +2 pulses bilaterally radialis/ dorsalis pedis, no cyanosis, no edema Neuro: Somnolent, not answering any questions Psych: Unable to assess G/U: Positive Rodriguez Skin: no rashes, warm and dry Lymphatic: no cervical or axillary lymphadenopathy Results & Data Results & Data Vital Signs (Past 12 Hours) Vital Signs Temp Pulse Pulse Resp BP Pulse Ox O2 Del Method 02/05/23 08:32 36.4 C L 85 18 136/69 99 BiPAP 02/05/23 07:48 99 H 20 95 02/05/23 02:41 36.5 C 111 H 32 H 149/79 H 94 BiPAP 02/05/23 02:33 105 H 28 H 94 02/05/23 00:52 37.2 C 90 16 91/52 L 96 BiPAP 02/04/23 23:04 92 H 18 96 BiPAP 02/04/23 23:00 96 H 02/04/23 22:51 93 H 18 96 02/04/23 21:22 108 H 118/61 FiO2 02/05/23 08:32 02/05/23 07:48 30 02/05/23 02:41 30 02/05/23 02:33 30 02/05/23 00:52 02/04/23 23:04 30 02/04/23 23:00 02/04/23 22:51 30 02/04/23 21:22 Laboratory Results 02/05/23 06:15 02/05/23 06:15 PG Care Time/CCT Total # of Minutes Spent Total Time Spent with Patient: Total time spent is greater than 50% in coordination of care (as documented) at patient's floor/unit and/or counseling patient: Coding Level of Care Code 11032 INT INP/OBS CARE 3/75MIN Diagnoses Acute respiratory failure with hypoxia and hypercapnia J96.01; J96.02 Metabolic encephalopathy G93.41 COPD with emphysema J43.9
--- NOTE | 2023-02-05 10:33 | Neurology Progress Note ---
Date of Service February 05, 2023 Assessment & Plan (1) Seizure: Recommend repeat CT brain without contrast Repeat EEG Continue seizure precautions Utilize benzodiazepines emergently for breakthrough seizure like activity Metabolic and infectious workup ongoing Continue Keppra to 1000mg IV Q12 after 2gram IV dose now (2) Metabolic encephalopathy: LP/CSF finding unremarkable for THREAD DRAWER infection Positive Influenza Continue to monitor neurological assessments Obtain stat CT brain without contrast for any acute neurological decline Continue to monitor renal and hepatic function Continue to monitor/replace electrolytes Subjective Telehealth Information I performed this visit using a real-time telehealth connection between my location and the patients location ([facility]). After con necting through interactive tele-video, patient was identified by name and date of and/or wristband check.Patient (or authorized healthcare personal banking representative) was informed that this was a telemedicine visit and it was being conducted confidentially over secure lines. My office door was closed and no one else was present in the room with me.Patient (or authorized healthcare personal banking representative) provided consent to proceed with the visit, expressed an understanding of privacy and security of the telemedicine visit, and gave permission to have a hospital personal banking representative in the room in order to assist with the visit and to conduct portions of the visit, as needed. I informed the patient (or authorized healthcare personal banking representative) that I reviewed their record and presented the opportunity for them to ask any questions regarding the visit today. The patient agreed to participate. 77yo female presented with reported seizure arrived from long term facility and demonstrated continued seizure like activity while hospitalized. She has undergone EEG without evidence of epileptiform discharges and/or epileptogenic focus. MRI brain unremarkable for evidence of scute intracranial pathology. She has undergone LP without overt evidence of THREAD DRAWER infection. She has been receiving antimicrobial treatment to cover for THREAD DRAWER involvement. I have performed televideo exam in presence of RN as it was reported she has had repeated episodes of left arm twitching. She has received lorazepam and morphine overnight due to left arm shaking and respiratory distress. At this time exam is limited. She demonstrates very minimal response to loud voice or painful stimuli. She has remained on BiPAP. She has not demonstrated improved mentation since hospitalization. She is receiving levitiracetam 1000mg Q12. She is DNR/DNI Physical Exam Neurological Examination: Mental Status: Minimally responsive to loud voice and painful stimuli CN testing: I: Difficult to accurately assess II:Unable to accurately assess III/IV/: No evidence of gaze preference, hippus, nystagmus or roving eye movements V: Difficult to reliable assess VII: Unable to accurately assess VIII: Difficult to reliable assess IX/X: Palate unable to be accurately visualized XI: Difficult to reliable assess XII: Difficult to reliable assess Motor exam: Limited motor exam- minimal response to painful stimuli Sensory: Difficult to reliable assess Coordination: Deferred Reflexes: Deferred Gait: Deferred Results & Data Vital Signs (Past 12 Hours) Vital Signs Temp Pulse Pulse Resp BP Pulse Ox O2 Del Method 02/05/23 09:00 104 H 02/05/23 09:00 BiPAP 02/05/23 08:32 36.4 C L 85 18 136/69 99 BiPAP 02/05/23 07:48 99 H 20 95 02/05/23 02:41 36.5 C 111 H 32 H 149/79 H 94 BiPAP 02/05/23 02:33 105 H 28 H 94 02/05/23 00:52 37.2 C 90 16 91/52 L 96 BiPAP 02/04/23 23:04 92 H 18 96 BiPAP 02/04/23 23:00 96 H 02/04/23 22:51 93 H 18 96 FiO2 02/05/23 09:00 02/05/23 09:00 02/05/23 08:32 02/05/23 07:48 30 02/05/23 02:41 30 02/05/23 02:33 30 02/05/23 00:52 02/04/23 23:04 30 02/04/23 23:00 02/04/23 22:51 30 Laboratory Results Abnormal lab results 02/04/23 02/05/23 Range/Units 21:14 06:15 RBC 3.90 L (4.20-5.40) M/uL Hgb 9.3 L (12.0-16.0) g/dl Hct 29.2 L (37.0-47.0) % MCV 74.9 L (80.0-100.0) fL MCH 23.8 L (25.0-34.0) pg MCHC 31.8 L (32.0-36.0) g/dL RDW Std Deviation 51.8 H (36.4-46.3) fL RDW Coeff of Aster 19.1 H (11.5-14.5) % ABG pH 7.34 L 7.28 L (7.35-7.45) ABG pCO2 51 H (35-46) mmHg ABG O2 Saturation 98.3 H 99.0 H (90-95) % Potassium 3.1 L D 2.8 L (3.5-5.1) mmol/L Carbon Dioxide 20 L (21-32) mmol/L Anion Gap 12 H (3-11) BUN 37 H 36 H (6-23) mg/dl Creatinine 2.15 H D 2.15 H (0.6-1.2) mg/dl Magnesium 1.5 L 1.5 L (1.7-2.4) mg/dl Diagnostic Findings Chest X-Ray 02/05/23 07:00 SINGLE VIEW CHEST CLINICAL HISTORY: Respiratory failure FINDINGS: An AP, portable, upright chest radiograph is compared to study dated 02/04/2023 and correlated with chest CT dated 02/02/2023. The examination is degraded by portable technique and apical lordotic positioning. The patient is status post midline sternotomy. The heart is top normal for projection noting atherosclerotic calcification of the thoracic aorta. Emphysema and chronic interstitial thickening is similar to previous. There is bibasilar scarring/atelectasis. No airspace consolidation or large pleural effusion is identified. No pneumothorax is seen. The skeletal structures are osteopenic. There are chronic/healed right-sided rib fractures. IMPRESSION: 1. Emphysematous change with no acute cardiopulmonary abnormality identified. 2. Pulmonary vascular congestion has improved from yesterday. ACT 112: Negative or not required by law. Electronically signed by: Jagdish Pham M.D. 02/05/2023 7:19 AM
[2023-02-05] MEDS ORDERED: VANCOMYCIN HCL 500 MG in NSS 100mL IV ONE (11:00)
[2023-02-05 11:01] LABS: Allen Test Pos (Pos)
--- NOTE | 2023-02-05 11:03 | Pharmacy Report ---
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 Pertinent microbiologic data includes: blood culture NGTD, urine culture (-), and CSF culture NGTD. MRSA nasal (+). SCr 2.28 -->1.79 -->2.15mg/dL. Day # 3 of antimicrobial therapy. Plan Vancomycin * Obtained a random level yesterday evening ~2000, 18.5mcg/mL which is therapeutic. Vancomycin 500mg IV X 1 dose given 2218 last night. Repeat random level this AM (0936), 17.5mcg/mL and again safe to re-dose. * Vanc 500mg IV X 1 now. Given worsening SCr, but yet good UOP and vancomycin clearance, will again obtain a level this evening to guide need for a dose this evening. * Continue to dose by levels Pharmacy will continue to follow and will adjust dose/frequency as necessary. Thank you. Pharmacy has transitioned to AUC monitoring for vancomycin. AUC/ALONSO is the preferred PK/PD target and is associated with decreased risk of nephrotoxicity compared to traditional trough targets.
[2023-02-05 11:12] LABS: Marijuana Quant, GCMS Urine 23 ng/mL (<5)
--- NOTE | 2023-02-05 11:42 | Nephrology Consultation ---
Date of Consultation February 05, 2023 Assessment & Plan (1) Acute renal failure: Patient with acute renal failure likely ischemic ATN in setting of recent sepsis. Patient had normal renal function back in October 2022 with a creatinine of 0.8. However creatinine has been in the high ones for the past 1 month. She is making urine. Electrolytes are stable except for hypokalemia. Will continue to monitor renal function with daily BMP. -No need for IV fluids due to tenuous respiratory status. (2) Hypokalemia: Patient with hypokalemia likely due to inadequate potassium intake and renal losses. She is getting 40 mg of potassium chloride. Will add another 40 mEq again. Repeat potassium level around 5 PM. (3) Acute respiratory failure with hypoxia and hypercapnia: Likely due to aspiration pneumonia in setting of seizure. Workup for infections ongoing. Patient is on BiPAP. Okay to give diuretics if needed History of Present Illness Attending Physician: Luan Shaw MD History of Present Illness 77-year-old female with past med history of CAD, s/p CABG, hypertension, GERD, depression, history of DVT, prolonged hospital stay in September and October 2022 with perforated gastric ulcer and had diagnostic laparoscopy and repair of gastric ulcer on September 17, 2022. And also she underwent right abdominal pigtail catheter on September 28, 2022 by IR and was removed after minimal output. Patient was also in ICU for aspiration pneumonia and severe sepsis septic shock. She also had G-tube placement. She has been in rehab but was readmitted last night with seizure activity. She is now on Keppra and on BiPAP. Patient is DNR/DNI. She was found to have worsening renal function with creatinine of 2.15. She had normal creatinine back in October 2022 but over the past 2 months creatinine has been in the high ones. Patient is unable to give history due to altered mental status. She is making urine however about 2.5 L a day. Allergies Allergy/AdvReac Type Severity Reaction Status Date / Time dorzolamide Allergy Intermediate Itchy, Verified 02/02/23 23:12 redness, irritated eyes iodine Allergy Intermediate Rash Verified 02/02/23 23:12 latex Allergy Intermediate Rash Verified 02/02/23 23:12 tositumomab iodine-131 Allergy Unknown Unknown Verified 02/02/23 23:12 Home Medications Medication Instructions Recorded Confirmed Type acetaminophen 325 mg tablet 650 mg PO Q6 PRN Fever Or Pain 02/02/23 02/02/23 History (Tylenol) atorvastatin 80 mg tablet 80 mg PO HS 02/02/23 02/02/23 History calcium carbonate 1,000 mg tablet 1,250 mg PO DAILY 02/02/23 02/02/23 History cholecalciferol (vitamin D3) 125 125 mcg PO DAILY 02/02/23 02/02/23 History mcg (5,000 unit) tablet (Vitamin D3) dronabinol 5 mg capsule 5 mg PO DAILY 02/02/23 02/02/23 History ferrous sulfate 325 mg (65 mg 325 mg PO DAILY 02/02/23 02/02/23 History iron) tablet folic acid 1 mg tablet 1 mg PO DAILY 02/02/23 02/02/23 History latanoprost 0.005 % eye drops 1 drp OPB HS 02/02/23 02/02/23 History magnesium chloride 64 mg 64 mg PO DAILY 02/02/23 02/02/23 History (magnesium chloride) tablet melatonin 3 mg tablet 3 mg PO HS 02/02/23 02/02/23 History metoclopramide HCl 5 mg tablet 5 mg PO TID 02/02/23 02/02/23 History metoprolol tartrate 25 mg tablet 25 mg PO Q12 02/02/23 02/02/23 History mirtazapine 15 mg tablet 15 mg PO HS 02/02/23 02/02/23 History nitroglycerin 0.4 mg sublingual 0.4 mg sublingual DIRECTED PRN 02/02/23 02/02/23 History tablet (Nitrostat) Chest Pain ondansetron HCl 4 mg tablet 4 mg PO Q4 PRN Nausea 02/02/23 02/02/23 History pantoprazole 40 mg tablet,delayed 40 mg PO BID 02/02/23 02/02/23 History release potassium chloride 10 mEq 10 meq PO DAILY 02/02/23 02/02/23 History tablet,extended release sertraline 50 mg tablet (Zoloft) 50 mg PO DAILY 02/02/23 02/02/23 History timolol maleate 0.5 % eye drops 1 drp OPB DAILY 02/02/23 02/02/23 History Patient History Medical History (Updated 02/05/23 @ 11:23 by Shanna Russell MD, FCCP) long term resident Currently residing at [facility] in [place] Muscle weakness (generalized) Nutritional deficiency Metabolic encephalopathy Critical illness myopathy Pressure ulcer of sacral region Diarrhea Anemia Dysphagia Essential (primary) hypertension Insomnia Hyperlipidemia Atherosclerotic heart disease Aspiration pneumonitis Pulmonary aspergillosis COPD with emphysema Perforated gastric ulcer Depression Coronary artery disease Surgical History (Updated 12/02/22 @ 11:34 by Tiffany Kramer, RN) History of esophagogastroduodenoscopy (12/01/22) Esophagogastroduodenoscopy, esophageal brushings(Not Applicable) - John Rivera DO History of surgery Diagnostic Laparoscopy, Placement of Jejunal Feeding Tube H/O abdominal surgery Diagnostic Laparoscopy, Repair of Perforated Gastic Ulcer, Tavo patch abdominal Washout Status post incision and drainage Incision and Drainage of Face Tooth Extraction #31 History of total hysterectomy History of cholecystectomy History of coronary artery bypass graft Family History Other Family history unknown Social History Smoking Status: Unknown if ever smoked Tobacco Type: Cigarettes Preferred Language: Singaporean Communication Ability: Impaired Communication Ability Comment: per [facility] pt is of sound mind to sign consents Supervisor Fine Grading Required: No Beliefs That Will Affect Care: None Current Living Situation: [facility] Facility Current Living Situation Comment: [facility] Other Information That Helps Us Care for You: No Feels Safe at Home: Yes Assistive Devices: Other Review of Systems 2 Review of Systems: Unable to obtain due to altered mental status Physical Exam 2 Physical Exam: General exam: Appears comfortable on BiPAP. Not answering questions HEENT: Pupils are equal and reactive to light Neck: No JVD, neck is supple trachea is midline Respiratory system: Clear breath sounds bilaterally. Gastrointestinal: Abdomen is soft, non distended, non tender, bowel sounds are present CVS: Regular rate and rhythm. No murmurs, rubs or gallops Musculoskeletal: No joint or muscle tenderness Extremities: Non tender, no edema, peripheral pulses are present Neuro: Unresponsive Skin: No rashes Results & Data Vital Signs (Past 12 Hours) Vital Signs Temp Pulse Pulse Resp BP Pulse Ox O2 Del Method 02/05/23 11:13 101 H 20 95 02/05/23 09:00 104 H 02/05/23 09:00 BiPAP 02/05/23 08:32 36.4 C L 85 18 136/69 99 BiPAP 02/05/23 07:48 99 H 20 95 02/05/23 02:41 36.5 C 111 H 32 H 149/79 H 94 BiPAP 02/05/23 02:33 105 H 28 H 94 02/05/23 00:52 37.2 C 90 16 91/52 L 96 BiPAP FiO2 02/05/23 11:13 30 02/05/23 09:00 02/05/23 09:00 02/05/23 08:32 02/05/23 07:48 30 02/05/23 02:41 30 02/05/23 02:33 30 02/05/23 00:52 Laboratory Results 02/05/23 06:15 02/05/23 06:15 WBC 9.79 RBC 3.90 L MCV 74.9 L MCH 23.8 L MCHC 31.8 L RDW Std Deviation 51.8 H RDW Coeff of Aster 19.1 H Plt Count 215 MPV 10.6
[2023-02-05] MEDS: LEVALBUTEROL HCL 0.63 MG/3 ML NEB NEB PRN (11:46)
[2023-02-05] MEDS: ACETYLCYSTEINE 20% INHAL SOLN 4ML ***DISPENSED BY RESP. INH SCH ×2 (11:46→20:24)
--- NOTE | 2023-02-05 14:10 | CT Scan Report ---
CT SCAN OF THE BRAIN WITHOUT IV CONTRAST CLINICAL HISTORY: Change in mental status. COMPARISON STUDY: CT of the brain dated 02/02/2023. MRI of the brain dated 02/03/2023. TECHNIQUE: Unenhanced axial CT scan of the brain is performed from the vertex to the skull base. A do se lowering technique was utilized adhering to the principles of ALARA. The skull base was scanned tw ice due to motion artifact. CT DOSE: 781.9 mGy.cm FINDINGS: Brain parenchyma: There is age-related involutional change noting moderate to advanced subcortical an d periventricular microangiopathic disease. There is no hemorrhage, mass effect, or evidence of acute territorial ischemia by CT criteria. There is a chronic lacunar infarct in the left thalamus. Simpson-w valdez matter differentiation is preserved. No extra-axial fluid collection is seen. Ventricles, sulci, cisterns: Prominent secondary to involutional change. Intracranial vasculature: There is atherosclerotic calcification of the cavernous carotid arteries. Calvarium: Unremarkable. Sinuses and mastoids: There is mild mucosal thickening with air-fluid levels in the maxillary antra. There is subtotal opacification of the sphenoid sinuses with an air-fluid level in the right. Moderat e mucosal thickening is noted in the frontal and ethmoid sinuses. There is a left mastoid effusion. T he right mastoid air cells are well pneumatized. Orbits: The bony orbits are grossly intact. There are bilateral ocular lens implants. IMPRESSION: 1. There is no hemorrhage, mass effect, or evidence of acute territorial ischemia by CT criteria. 2. Pansinus disease as above. ACT 112: Negative or not required by law. Electronically signed by: Jagdish Pham M.D. 02/05/2023 2:08 PM
[2023-02-05 15:18] LABS: BUN Creatinine Ratio 18.1 (10-20); Calcium 8.7 mg/dl (8.6-10.3); Creatinine Clr Calc Pharmacy 20.4 ml/min; Est GFR (African American) 29.3 ml/min; Est GFR (Non-African American) 25.3 ml/min
--- NOTE | 2023-02-05 17:48 | Hospitalist Progress Note ---
Date of Service February 05, 2023 Assessment & Plan (1) Seizure-like activity: Plan: Patient is a 77 yr male with H/O SIADH, CAD, s/p CABG, hypertension GERD, primary open-angle glaucoma, iron deficiency anemia, depression, history of DVT, patient had prolonged hospital stay in September and October 2022 with perforated gastric ulcer and had diagnostic laparoscopy and repair of gastric ulcer on September 17, 2022. Treated with IV antibiotics. And also she underwent right abdominal pigtail catheter on September 28, 2022 by IR and was removed after minimal output. Patient again had IR drain placement in right upper abdominal October 11, 2022 per surgery recommendation and subsequently was taken out. At the time she was also in ICU for aspiration pneumonia and severe sepsis septic shock.She also had G-tube placement. Patient was discharged to [facility] skilled nursing. Patient currently eats but she also gets 50 mill per hour for 12 hours of tube feeds. Currently not doing much in PT. Patient was brought in from skilled nursing because of seizure-like activity around 7:30 PM. She witnessed seizure at skilled nursing. Currently seems postictal. Imaging studies are okay in the ER. Sodium 133, potassium 3.2, creatinine 2.2 and lactic acid came at 5.9 and calcium 11.4. Patient currently very drowsy. Grimaces with painful stimuli. Moves extremities on painful stimuli. Hemodynamically stable. Confirmed with the daughter the patient is DNR. As per skilled nursing no recent fevers. No recent cough. As per skilled nursing had 1 episode of vomiting yesterday. No diarrhea. Otherwise she is alert and oriented as per skilled nursing. As per daughter sometimes her cognitive status is not a great. Seizure-like activity Acute metabolic encephalopathy Abnormal urinalysis--rule out UTI DD:? Polypharmacy, secondary to influenza Suspected Acute meningitis--less likely given negative CSF studies Mental status waxes and wanes at baseline as per patient's family. --CT head:Mild progressive left mastoid effusion. Stable age-related findings. No acute infarct, bleed, or acute intracranial abnormality. --EEG:This is an abnormal routine EEG due to generalized background slowing suggestive of a non specific encephalopathy. No epileptiform activity is seen. --MRI Brain:Moderate age-related findings. Stable sinus disease and left mastoid effusion, may be chronic. No acute infarct, bleed, or acute intracranial abnormality. Mild to moderate motion artifact. --Toxicology positive for marijuana --Chronic mastoid effusion also seen on prior imaging --Lactic acidosis resolved with IV fluids --Blood culture negative to date -- urine cultures negative to date --Continue empiric Zosyn>> transition to vancomycin, ceftriaxone, ampicillin>> ceftriaxone, Flagyl --Continue IV Keppra Hold sedative medications Aspiration, fall, seizure precautions Appreciate Neurology Input Continue IV fluids--held as developing volume overload Reorient frequently to minimize delirium Ativan as needed for seizures Infectious disease consulted Aspiration precautions Repeat CT today showed no acute process Repeat EEG pending Neurology following If no recurrent seizures, will consider to decrease Keppra dose to 500 mg twice daily to minimize excessive sedation Patient's daughter aware of critical condition of the patient and understands and agrees with current management. If no clinical improvement, family considering transition to comfort care Plan to discontinue antibiotics if cultures remain negative Acute respiratory failure with hypoxia and hypercarbia Influenza A infection--POA Likely aspiration pneumonia Chest x-ray suggestive of pulmonary vascular congestion, findings suggestive of developing pneumonia On empiric antibiotics as above BiPAP for respiratory support Will repeat chest x-ray tomorrow Aggressive pulmonary hygiene IV fluids as needed Appreciate pulmonology input Added hypertonic saline nebs, Mucomyst Poor prognosis Mildly elevated troponin Likely demand ischemia EKG showed no signs of acute ischemia Suspected GI bleed Acute on chronic anemia Iron deficiency anemia No obvious source of bleed currently S/P 2 units PRBCs Hb 6.6>>8.1>10.6 Bowel rest for today Continue Protonix drip Appreciate GI input Monitor H&H and transfuse PRBCs as needed Chronic rib fractures Nonunited fracture of left pubic symphysis Probable healing left sacral fracture Incidental findings on imaging studies Fall precautions PT OT as able CAL on CKD II-III Cr 2.2>2.0>1.8 Avoid nephrotoxic agents as able Monitor renal function Received IV fluids Appreciate nephrology input Chronic hyponatremia H/O SIADH Sodium 133>135>136>137 Currently clinically dehydrated Monitor sodium levels Hypokalemia Hypomagnesemia Replace and Monitor H/o CAD s/p CABG On statin and beta-irene H/O Perforated gastric ulcer s/p repair Currently no acute obvious bleeding issues Continue Protonix Iron deficiency anemia Continue Iron supplements Depression On Remeron and Zoloft Resume home medications as able Nutrition Dietitian consulted gets tube feeds 50ml/hr for 12hrs in night time. Poor oral intake currently DVT Px SCDs Re: significant anemia, concern for GI bleed CODE STATUS DNR/DNI Disposition Poor prognosis Admission and Anticipated Discharge Date Admission Date: February 03, 2023 Subjective Patient is seen and examined at bedside Remains obtunded during my encounter Discussed with patient's daughter in detail at bedside No seizure activity overnight Continues to be on BiPAP Discussed with neurology and pulmonary today No obvious source of infection found Poor Prognosis Review of Systems Review of Systems: All systems reviewed & are unremarkable except as noted in Subjective Physical Exam Physical Exam: Physical Exam: Vitals signs as noted above General Appearance: Thin, frail, ill-appearing, elderly, mild distress Head: normocephalic, Atraumatic Eyes: normal inspection, EOMI Neck: supple, Trachea midline Respiratory/Chest: Coarse breath sounds, mild crackles, No accessory muscle use Cardiovascular: S1, S2, No murmur Abdomen/GI:Soft, Non tender, + J tube, Bowel sounds present Extremities/Musculoskeletal:normal inspection, no edema Neurologic/Psych:Obtunded, unable to perform complete neurological exam Skin: normal color, warm Results & Data Results & Data Vital Signs (Past 12 Hours) Vital Signs Temp Pulse Pulse Resp BP Pulse Ox O2 Del Method 02/05/23 16:40 36.6 C 94 H 18 120/66 96 BiPAP 02/05/23 15:00 90 02/05/23 12:20 36.5 C 84 20 115/53 L 97 BiPAP 02/05/23 11:46 23 BiPAP 02/05/23 11:13 101 H 20 95 02/05/23 09:00 104 H 02/05/23 09:00 BiPAP 02/05/23 08:32 36.4 C L 85 18 136/69 99 BiPAP 02/05/23 07:48 99 H 20 95 FiO2 02/05/23 16:40 02/05/23 15:00 02/05/23 12:20 02/05/23 11:46 30 02/05/23 11:13 30 02/05/23 09:00 02/05/23 09:00 02/05/23 08:32 02/05/23 07:48 30 Laboratory Results Short CBC 02/05/23 Range/Units 06:15 WBC 9.79 (4.8-10.8) K/ul Hgb 9.3 L (12.0-16.0) g/dl Hct 29.2 L (37.0-47.0) % Plt Count 215 (130-400) K/uL BMP 02/04/23 02/05/23 02/05/23 21:14 06:15 14:48 Sodium 138 139 137 Potassium 3.1 L D 2.8 L 4.0 D Chloride 106 107 106 Carbon Dioxide 20 L 22 22 BUN 37 H 36 H 34 H Creatinine 2.15 H D 2.15 H 1.88 H Glucose 82 79 85 Calcium 9.3 8.9 8.7
[2023-02-05] MEDS: FORMOTEROL 20 MCG/2 ML VIAL INH SCH (20:23)
[2023-02-05] MEDS: BUDESONIDE 0.5 MG/2 ML VIAL (PULMICORT) NEB SCH (20:24)
[2023-02-05] MEDS: SODIUM CHLOR 7% 4 ML NEB NEB SCH (20:24)
[2023-02-05] MEDS: PEPTAMEN 1.5 CAL 1,000 ML BAG JT SCH (20:51)
[2023-02-05] MEDS: TUBE FEEDING WATER FLUSH JT SCH (21:02)
[2023-02-05] MEDS: LATANOPROST 0.005% OP SOLN 2.5 ML BTL OPB SCH (21:04)
[2023-02-05] MEDS: ATORVASTATIN 40 MG TAB PO SCH (21:04)
[2023-02-05] MEDS ORDERED: Nursing to Pharmacy Communication SCH (22:30)
[2023-02-06] MEDS: PANTOprazole 40 MG in DEXTROSE 5% MINI-B 100 ML IV SCH ×5 (02:33→23:01)
[2023-02-06] MEDS: TUBE FEEDING WATER FLUSH JT SCH ×6 (04:35→20:14)
[2023-02-06] MEDS: metroNIDAZOLE 500 MG/100 ML BAG IV SCH (05:05)
[2023-02-06] MEDS: cefTRIAXone SODIUM 2,000 MG in DEXTROSE 5 % MINI-B 50 ML IV SCH ×2 (06:21→17:43)
[2023-02-06] MEDS: ACETYLCYSTEINE 20% INHAL SOLN 4ML ***DISPENSED BY RESP. INH SCH ×2 (07:15→18:01)
[2023-02-06] MEDS: FORMOTEROL 20 MCG/2 ML VIAL INH SCH ×2 (07:16→18:02)
[2023-02-06] MEDS: BUDESONIDE 0.5 MG/2 ML VIAL (PULMICORT) NEB SCH ×2 (07:16→18:01)
[2023-02-06] MEDS: SODIUM CHLOR 7% 4 ML NEB NEB SCH ×2 (07:16→18:01)
[2023-02-06] MEDS: LEVALBUTEROL HCL 0.63 MG/3 ML NEB NEB PRN ×2 (07:16→18:01)
[2023-02-06 07:45] LABS: BUN Creatinine Ratio 14.9 (10-20); Calcium 8.6 mg/dl (8.6-10.3); Creatinine Clr Calc Pharmacy 15.9 ml/min; Est GFR (African American) 21.7 ml/min; Est GFR (Non-African American) 18.7 ml/min; Magnesium 1.9 mg/dl (1.7-2.4); Potassium 3.2 mmol/L (3.5-5.1)
[2023-02-06] MEDS: levETIRAcetam 1,000 MG in 0.9 % SODIUM CHLORIDE 100 ML IV SCH (07:59)
[2023-02-06] MEDS: METOPROLOL TARTRATE 25 MG TAB PO SCH ×3 (07:59→20:14)
[2023-02-06] MEDS: droNABinol 2.5 MG CAP PO SCH ×2 (07:59→08:25)
[2023-02-06] MEDS: SERTRALINE HCL 50 MG TABLET PO SCH (08:04)
[2023-02-06] MEDS: OSELTAMIVIR PHOSPHATE SUSP 30 MG/5 ML UDP PO SCH (08:05)
[2023-02-06] MEDS: TIMOLOL MALEATE 0.5% OP SOLN 5 ML BTL OP SCH (08:05)
[2023-02-06] MEDS ORDERED: levETIRAcetam 500 MG in 0.9 % SODIUM CHLORIDE 100 ML IV SCH (10:32)
--- NOTE | 2023-02-06 10:59 | Nephrology Progress Note ---
Date of Service February 06, 2023 Assessment & Plan (1) Acute renal failure: Plan: Patient with acute renal failure likely ischemic ATN in setting of recent sepsis. Creatinine up to 2.4 from 1.9 yesterday. patient had normal renal function back in October 2022 with a creatinine of 0.8. However creatinine has been in the high ones for the past 1 month. She is making urine. Electrolytes are stable except for hypokalemia. Will continue to monitor renal function with daily BMP. -No need for IV fluids due to tenuous respiratory status. (2) Hypokalemia: Plan: Patient with hypokalemia likely due to inadequate potassium intake and renal losses. Will give potassium chloride 40 mEq again. (3) Acute respiratory failure with hypoxia and hypercapnia: Plan: Likely due to aspiration pneumonia in setting of seizure. Workup for infections ongoing. Patient is on BiPAP. Okay to give diuretics if needed Admission and Anticipated Discharge Date Admission Date: February 03, 2023 Subjective Seen for acute kidney injury and respiratory failure. Patient is very sick and unresponsive. Unable to give history. She is making urine although creatinine slightly up today. Review of Systems 2 Review of Systems: Unable to obtain due to altered mental status Physical Exam 2 Physical Exam: General exam: Appears comfortable on BiPAP. Not answering questions HEENT: Pupils are equal and reactive to light Neck: No JVD, neck is supple trachea is midline Respiratory system: Clear breath sounds bilaterally. Gastrointestinal: Abdomen is soft, non distended, non tender, bowel sounds are present CVS: Regular rate and rhythm. No murmurs, rubs or gallops Musculoskeletal: No joint or muscle tenderness Extremities: Non tender, no edema, peripheral pulses are present Neuro: Unresponsive Skin: No rashes Results & Data Vital Signs (Past 12 Hours) Vital Signs Temp Pulse Pulse Resp BP Pulse Ox Pulse Ox 02/06/23 07:59 02/06/23 07:56 37 C 90 18 111/68 100 02/06/23 07:26 84 02/06/23 07:19 84 26 H 99 02/06/23 07:19 84 26 H 99 02/06/23 06:00 99 02/06/23 03:19 36.9 C 83 18 93/58 L 100 02/06/23 02:05 84 23 99 02/05/23 23:00 82 O2 Del Method O2 Del Method FiO2 02/06/23 07:59 BiPAP 02/06/23 07:56 BiPAP 02/06/23 07:26 02/06/23 07:19 40 02/06/23 07:19 BiPAP 40 02/06/23 06:00 BiPAP 02/06/23 03:19 BiPAP 02/06/23 02:05 40 02/05/23 23:00 Laboratory Results 02/06/23 06:41
[2023-02-06] MEDS: POTASSIUM CHLORIDE / WTR 10 MEQ/100 ML PLCT IV SCH ×2 (11:07→12:29)
[2023-02-06] MEDS: POTASSIUM CHLORIDE CRTAB 20 MEQ TABCR PO SCH (11:08)
--- NOTE | 2023-02-06 18:41 | Hospitalist Progress Note ---
Date of Service February 06, 2023 Assessment & Plan (1) Seizure-like activity: Plan: Patient is a 77 yr male with H/O SIADH, CAD, s/p CABG, hypertension GERD, primary open-angle glaucoma, iron deficiency anemia, depression, history of DVT, patient had prolonged hospital stay in September and October 2022 with perforated gastric ulcer and had diagnostic laparoscopy and repair of gastric ulcer on September 17, 2022. Treated with IV antibiotics. And also she underwent right abdominal pigtail catheter on September 28, 2022 by IR and was removed after minimal output. Patient again had IR drain placement in right upper abdominal October 11, 2022 per surgery recommendation and subsequently was taken out. At the time she was also in ICU for aspiration pneumonia and severe sepsis septic shock.She also had G-tube placement. Patient was discharged to [facility]. Patient currently eats but she also gets 50 mill per hour for 12 hours of tube feeds. Currently not doing much in PT. Patient was brought in from assisted because of seizure-like activity around 7:30 PM. She witnessed seizure at assisted. Currently seems postictal. Imaging studies are okay in the ER. Sodium 133, potassium 3.2, creatinine 2.2 and lactic acid came at 5.9 and calcium 11.4. Patient currently very drowsy. Grimaces with painful stimuli. Moves extremities on painful stimuli. Hemodynamically stable. Confirmed with the daughter the patient is DNR. As per assisted no recent fevers. No recent cough. As per assisted had 1 episode of vomiting yesterday. No diarrhea. Otherwise she is alert and oriented as per assisted. As per daughter sometimes her cognitive status is not a great. Seizure-like activity Acute metabolic encephalopathy Abnormal urinalysis--rule out UTI DD:? Polypharmacy, secondary to influenza Suspected Acute meningitis--less likely given negative CSF studies Mental status waxes and wanes at baseline as per patient's family. --CT head:Mild progressive left mastoid effusion. Stable age-related findings. No acute infarct, bleed, or acute intracranial abnormality. --EEG:This is an abnormal routine EEG due to generalized background slowing suggestive of a non specific encephalopathy. No epileptiform activity is seen. --MRI Brain:Moderate age-related findings. Stable sinus disease and left mastoid effusion, may be chronic. No acute infarct, bleed, or acute intracranial abnormality. Mild to moderate motion artifact. --Toxicology positive for marijuana (due to Marinol) --Chronic mastoid effusion also seen on prior imaging --Lactic acidosis resolved with IV fluids --Blood culture negative to date -- urine cultures negative to date --Continue empiric Zosyn>> transition to vancomycin, ceftriaxone, ampicillin>> ceftriaxone, Flagyl --Continue IV Keppra 1000 mg BID Hold sedative medications Aspiration, fall, seizure precautions Appreciate Neurology Input Continue IV fluids--held as developing volume overload Zoloft held to minimize exacerbation Ativan as needed for seizures Infectious disease consulted Aspiration precautions Repeat CT today showed no acute process Repeat EEG pending Neurology following If no recurrent seizures, will consider to decrease Keppra dose to 500 mg twice daily to minimize excessive sedation Patient's daughter aware of critical condition of the patient and understands and agrees with current management. If no clinical improvement, family considering transition to comfort care Clinically no improvement. Had seizure like episode today as well. Offered option for tertiary care facility transfer. Patient remains obtunded. Patient's daughter prefers to continue current management. Acute respiratory failure with hypoxia and hypercarbia Influenza A infection--POA Chest x-ray suggestive of pulmonary vascular congestion, findings suggestive of developing pneumonia On empiric antibiotics as above BiPAP for respiratory support No signs of pneumonia as per pulmonology Aggressive pulmonary hygiene IV fluids as needed Appreciate pulmonology input Added hypertonic saline nebs, Mucomyst Poor prognosis. Remains on BiPAP Mildly elevated troponin Likely demand ischemia EKG showed no signs of acute ischemia Suspected GI bleed Acute on chronic anemia Iron deficiency anemia No obvious source of bleed currently S/P 2 units PRBCs Hb 6.6>>8.1>10.6>9.3 Continue Protonix drip Appreciate GI input Monitor H&H and transfuse PRBCs as needed Chronic rib fractures Nonunited fracture of left pubic symphysis Probable healing left sacral fracture Incidental findings on imaging studies Fall precautions PT OT as able CAL on CKD II-III Cr 2.2>2.0>1.8>3.2 Avoid nephrotoxic agents as able Monitor renal function Received IV fluids Appreciate nephrology input Renal function worsening Nephrology following Chronic hyponatremia H/O SIADH Sodium 133>135>136>137 Currently clinically dehydrated Monitor sodium levels Hypokalemia Hypomagnesemia Replace and Monitor H/o CAD s/p CABG On statin and beta-irene H/O Perforated gastric ulcer s/p repair Currently no acute obvious bleeding issues Continue Protonix Iron deficiency anemia Continue Iron supplements Depression On Remeron and Zoloft Resume home medications as able Nutrition Dietitian consulted gets tube feeds 50ml/hr for 12hrs in night time. Poor oral intake currently DVT Px SCDs Re: significant anemia, concern for GI bleed CODE STATUS DNR/DNI Disposition Very Poor prognosis Admission and Anticipated Discharge Date Admission Date: February 03, 2023 Subjective Patient is seen and examined at bedside Remains obtunded during my encounter Discussed with patient's daughter in detail at bedside Had an episode of seizure today reported by RN Patient showed no improvement clinically Noted some respiratory distress during my encounter Poor Prognosis Review of Systems Review of Systems: Other Physical Exam Physical Exam: Physical Exam: Vitals signs as noted above General Appearance: Thin, frail, ill-appearing, elderly, mild distress Head: normocephalic, Atraumatic Eyes: normal inspection, EOMI Neck: supple, Trachea midline Respiratory/Chest: Coarse breath sounds, mild crackles, No accessory muscle use Cardiovascular: S1, S2, No murmur Abdomen/GI:Soft, Non tender, + J tube, Bowel sounds present Extremities/Musculoskeletal:normal inspection, no edema Neurologic/Psych:Obtunded, unable to perform complete neurological exam Skin: normal color, warm Results & Data Results & Data Vital Signs (Past 12 Hours) Vital Signs Temp Pulse Pulse Resp BP Pulse Ox O2 Del Method 02/06/23 18:02 88 24 98 02/06/23 18:02 88 24 98 BiPAP 02/06/23 15:24 85 22 96 02/06/23 15:16 37.3 C 84 21 103/64 98 BiPAP 02/06/23 15:00 83 02/06/23 11:56 36.9 C 76 18 94/50 L 99 BiPAP 02/06/23 11:28 79 18 97 02/06/23 07:59 BiPAP 02/06/23 07:56 37 C 90 18 111/68 100 BiPAP 02/06/23 07:26 84 02/06/23 07:19 84 26 H 99 02/06/23 07:19 84 26 H 99 BiPAP FiO2 02/06/23 18:02 40 02/06/23 18:02 40 02/06/23 15:24 40 02/06/23 15:16 40 02/06/23 15:00 02/06/23 11:56 02/06/23 11:28 40 02/06/23 07:59 02/06/23 07:56 02/06/23 07:26 02/06/23 07:19 40 02/06/23 07:19 40 Laboratory Results [facility] 02/06/23 06:41 Sodium 139 Potassium 3.2 L Chloride 107 Carbon Dioxide 23 BUN 36 H Creatinine 2.41 H D Glucose 113 H Calcium 8.6
[2023-02-06] MEDS: LATANOPROST 0.005% OP SOLN 2.5 ML BTL OPB SCH (20:04)
[2023-02-06] MEDS: ATORVASTATIN 40 MG TAB PO SCH (20:13)
[2023-02-06] MEDS: LORazepam 2 MG in SYRINGE 1 ML IV PRN (20:21)
[2023-02-06] MEDS: levETIRAcetam 500 MG in SODIUM CHLOR 0.9% MINI-B 100 ML IV SCH (20:52)
[2023-02-06] MEDS ORDERED: LEVETIRACETAM IV SCH (21:00)
[2023-02-06] MEDS ORDERED: MINI B IV SCH (21:00)
[2023-02-06] MEDS ORDERED: SODIUM CHLOR 0.9% IV SCH (21:00)
[2023-02-06] MEDS: PEPTAMEN 1.5 CAL 1,000 ML BAG JT SCH (22:04)
[2023-02-07] MEDS: TUBE FEEDING WATER FLUSH JT SCH ×3 (04:06→09:08)
[2023-02-07] MEDS: PANTOprazole 40 MG in DEXTROSE 5% MINI-B 100 ML IV SCH ×2 (04:06→09:07)
[2023-02-07] MEDS: cefTRIAXone SODIUM 2,000 MG in DEXTROSE 5 % MINI-B 50 ML IV SCH (05:56)
[2023-02-07 07:04] LABS: Hematocrit (blood only) 27.8 % (37.0-47.0); Hemoglobin 8.5 g/dl (12.0-16.0); Mean Corpuscular Hemoglobin 23.7 pg (25.0-34.0); Mean Corpuscular Hgb Conc 30.6 g/dL (32.0-36.0); Mean Corpuscular Volume 77.4 fL (80.0-100.0); Mean Platelet Volume 10.7 fL (9.4-12.4); Platelet Count 212 K/uL (130-400); RDW Coefficient of Variation 19.9 % (11.5-14.5); RDW Standard Deviation 55.1 fL (36.4-46.3); Red Blood Count 3.59 M/uL (4.20-5.40); White Blood Count 13.28 K/ul (4.8-10.8)
[2023-02-07] MEDS: BUDESONIDE 0.5 MG/2 ML VIAL (PULMICORT) NEB SCH (07:10)
[2023-02-07] MEDS: FORMOTEROL 20 MCG/2 ML VIAL INH SCH (07:10)
[2023-02-07] MEDS: SODIUM CHLOR 7% 4 ML NEB NEB SCH (07:10)
[2023-02-07] MEDS: ACETYLCYSTEINE 20% INHAL SOLN 4ML ***DISPENSED BY RESP. INH SCH (07:10)
[2023-02-07 07:25] LABS: BUN Creatinine Ratio 14.5 (10-20); Calcium 8.6 mg/dl (8.6-10.3); Creatinine Clr Calc Pharmacy 15.1 ml/min; Est GFR (African American) 20.3 ml/min; Est GFR (Non-African American) 17.5 ml/min; Magnesium 1.8 mg/dl (1.7-2.4); Potassium 2.9 mmol/L (3.5-5.1)
[2023-02-07] MEDS: droNABinol 2.5 MG CAP PO SCH (09:00)
[2023-02-07] MEDS: POTASSIUM CHLORIDE CRTAB 20 MEQ TABCR PO SCH (09:00)
[2023-02-07] MEDS: PEPTAMEN 1.5 CAL 1,000 ML BAG JT SCH (09:07)
[2023-02-07] MEDS: levETIRAcetam 500 MG in SODIUM CHLOR 0.9% MINI-B 100 ML IV SCH (09:08)
[2023-02-07] MEDS: METOPROLOL TARTRATE 25 MG TAB PO SCH ×2 (09:09→10:21)
[2023-02-07] MEDS: TIMOLOL MALEATE 0.5% OP SOLN 5 ML BTL OP SCH (09:10)
[2023-02-07] MEDS ORDERED: POTASSIUM CHLORIDE CRTAB 20 MEQ TABCR PO ONE (09:11)
[2023-02-07] MEDS ORDERED: POTASSIUM CHLORIDE / WTR 10 MEQ/100 ML PLCT IV SCH (09:15)
[2023-02-07 09:40] LABS: iSTAT Arterial Blood Gas HCO3 24 meg/L (19-24); iSTAT Arterial Blood Gas pCO2 55 mmHg (35-46); iSTAT Arterial Blood Gas pH 7.24 (7.35-7.45); iSTAT Arterial Blood Gas pO2 80 mmHg (80-95); iSTAT Carbon Dioxide 25 mmol/L (24-31); iSTAT Hematocrit 30 % (37-47); iSTAT Hemoglobin 10.2 g/dl (12.0-16.0); iSTAT Potassium 3.2 mmol/L (3.3-5.0); iSTAT Sodium 138 mmol/L (135-144)
[2023-02-07] MEDS: OSELTAMIVIR PHOSPHATE SUSP 30 MG/5 ML UDP PO SCH (09:47)
--- NOTE | 2023-02-07 09:50 | Communication Note ---
Date of Service: February 07, 2023 Discussed with patient's daughter in detail this morning. Given no meaningful recovery, patient daughter prefers patient to be transferred to comfort measures only. Will transition towards [employer] per family's request.
[2023-02-07] MEDS ORDERED: LORazepam 0.5 MG TAB PO PRN (09:51)
[2023-02-07] MEDS ORDERED: ONDANSETRON 4 MG OD TAB SL PRN (09:51)
[2023-02-07] MEDS ORDERED: ONDANSETRON INJ 2 MG/ML 2 ML VIAL IV PRN (09:51)
[2023-02-07] MEDS ORDERED: ATROPINE SULFATE 1% OP SOLN 5 ML BTL SL PRN (09:51)
--- NOTE | 2023-02-07 09:51 | Hospitalist Progress Note ---
Date of Service February 07, 2023 Assessment & Plan (1) Seizure-like activity: Plan: Patient is a 77 yr male with H/O SIADH, CAD, s/p CABG, hypertension GERD, primary open-angle glaucoma, iron deficiency anemia, depression, history of DVT, patient had prolonged hospital stay in September and October 2022 with perforated gastric ulcer and had diagnostic laparoscopy and repair of gastric ulcer on September 17, 2022. Treated with IV antibiotics. And also she underwent right abdominal pigtail catheter on September 28, 2022 by IR and was removed after minimal output. Patient again had IR drain placement in right upper abdominal October 11, 2022 per surgery recommendation and subsequently was taken out. At the time she was also in ICU for aspiration pneumonia and severe sepsis septic shock.She also had G-tube placement. Patient was discharged to [facility]. Patient currently eats but she also gets 50 mill per hour for 12 hours of tube feeds. Currently not doing much in PT. [facility] activity around 7:30 PM. [facility]. Currently seems postictal. Imaging studies are okay in the ER. Sodium 133, potassium 3.2, creatinine 2.2 and lactic acid came at 5.9 and calcium 11.4. Patient currently very drowsy. Grimaces with painful stimuli. Moves extremities on painful stimuli. Hemodynamically stable. Confirmed with the daughter the patient is DNR. As per [facility] no recent fevers. No recent cough. As per [facility] had 1 episode of vomiting yesterday. No diarrhea. Otherwise she is alert and oriented as per [facility]. As per daughter sometimes her cognitive status is not a great. Seizure-like activity Acute metabolic encephalopathy Abnormal urinalysis--ruled out UTI DD:? Polypharmacy, secondary to influenza Suspected Acute meningitis--less likely given negative CSF studies Mental status waxes and wanes at baseline as per patient's family. --CT head:Mild progressive left mastoid effusion. Stable age-related findings. No acute infarct, bleed, or acute intracranial abnormality. --EEG:This is an abnormal routine EEG due to generalized background slowing suggestive of a non specific encephalopathy. No epileptiform activity is seen. --MRI Brain:Moderate age-related findings. Stable sinus disease and left mastoid effusion, may be chronic. No acute infarct, bleed, or acute intracranial abnormality. Mild to moderate motion artifact. --Toxicology positive for marijuana (due to Marinol) --Chronic mastoid effusion also seen on prior imaging --Lactic acidosis resolved with IV fluids --Blood culture negative to date -- urine cultures negative to date --Continue empiric Zosyn>> transition to vancomycin, ceftriaxone, ampicillin>> ceftriaxone, Flagyl --Continue IV Keppra 1000 mg BID Hold sedative medications Aspiration, fall, seizure precautions Appreciate Neurology Input Continue IV fluids--held as developing volume overload Zoloft held to minimize exacerbation Ativan as needed for seizures Infectious disease consulted Aspiration precautions Repeat CT today showed no acute process Repeat EEG pending Neurology following If no recurrent seizures, will consider to decrease Keppra dose to 500 mg twice daily to minimize excessive sedation Patient's daughter aware of critical condition of the patient and understands and agrees with current management. Clinically no improvement. Had seizure like episode today as well. Offered option for tertiary care facility transfer. Patient remains obtunded. Given no meaningful recovery, patient's daughter prefers patient to be transition to comfort measures only. Patient daughter understands and agrees with comfort measures. Acute respiratory failure with hypoxia and hypercarbia Influenza A infection--POA Chest x-ray suggestive of pulmonary vascular congestion, findings suggestive of developing pneumonia On empiric antibiotics as above BiPAP for respiratory support No signs of pneumonia as per pulmonology Aggressive pulmonary hygiene IV fluids as needed Appreciate pulmonology input Added hypertonic saline nebs, Mucomyst Poor prognosis. Remains on BiPAP Mildly elevated troponin Likely demand ischemia EKG showed no signs of acute ischemia Suspected GI bleed Acute on chronic anemia Iron deficiency anemia No obvious source of bleed currently S/P 2 units PRBCs Hb 6.6>>8.1>10.6>9.3 Continue Protonix drip Appreciate GI input Monitor H&H and transfuse PRBCs as needed Chronic rib fractures Nonunited fracture of left pubic symphysis Probable healing left sacral fracture Incidental findings on imaging studies Fall precautions PT OT as able CAL on CKD II-III Cr 2.2>2.0>1.8>2.5 Avoid nephrotoxic agents as able Monitor renal function Received IV fluids Appreciate nephrology input Renal function worsening Nephrology following Chronic hyponatremia H/O SIADH Sodium 133>135>136>137>140 Currently clinically dehydrated Monitor sodium levels Hypokalemia Hypomagnesemia Replace and Monitor H/o CAD s/p CABG On statin and beta-irene H/O Perforated gastric ulcer s/p repair Currently no acute obvious bleeding issues Continue Protonix Iron deficiency anemia Continue Iron supplements Depression On Remeron and Zoloft Resume home medications as able Nutrition Dietitian consulted gets tube feeds 50ml/hr for 12hrs in night time. Poor oral intake currently DVT Px SCDs Re: significant anemia, concern for GI bleed CODE STATUS DNR/DNI Disposition Very Poor prognosis Currently on comfort measures only as requested by family Admission and Anticipated Discharge Date Admission Date: February 03, 2023 Subjective Patient is seen and examined at bedside Remains obtunded and on BiPAP this morning Discussed with patient's daughter in detail at bedside Had an episode of seizure today per daughter No distress during the encounter Poor Prognosis Patient's daughter prefers patient to be transition to comfort measures only Review of Systems Review of Systems: Unobtainable due to reduced consciousness Physical Exam Physical Exam: Physical Exam: Vitals signs as noted above General Appearance: Thin, frail, ill-appearing, elderly, no distress Head: normocephalic, Atraumatic Eyes: normal inspection, EOMI Neck: supple, Trachea midline Respiratory/Chest: Coarse breath sounds, mild crackles, No accessory muscle use Cardiovascular: S1, S2, No murmur Abdomen/GI:Soft, Non tender, + J tube, Bowel sounds present Extremities/Musculoskeletal:normal inspection, no edema Neurologic/Psych:Obtunded, unable to perform complete neurological exam Skin: normal color, warm Results & Data Results & Data Vital Signs (Past 12 Hours) Vital Signs Temp Pulse Pulse Resp BP Pulse Ox Pulse Ox 02/07/23 07:32 93 H 02/07/23 07:26 36.8 C 86 22 111/58 L 100 02/07/23 07:14 84 17 96 02/07/23 07:11 84 17 96 02/07/23 06:00 89 22 104/60 02/07/23 06:00 98 02/07/23 03:00 36.5 C 81 18 90/50 L 96 02/07/23 02:43 83 22 96 02/06/23 23:00 73 02/06/23 23:00 88 25 H 97 02/06/23 22:52 36.4 C L 77 24 96/54 L 100 O2 Del Method O2 Del Method FiO2 02/07/23 07:32 02/07/23 07:26 BiPAP 02/07/23 07:14 40 02/07/23 07:11 BiPAP 40 02/07/23 06:00 BiPAP 02/07/23 06:00 BiPAP 02/07/23 03:00 BiPAP 02/07/23 02:43 40 02/06/23 23:00 02/06/23 23:00 40 02/06/23 22:52 BiPAP
[2023-02-07] MEDS: MoRPHine SULFATE 2 MG/ML CARP IV PRN ×2 (10:48→15:58)
[2023-02-07] MEDS: GLYCOPYRROLATE 0.2 MG/ML VIAL IV PRN (10:52)
[2023-02-07] MEDS: LORazepam 2 MG in SYRINGE 1 ML IV PRN ×2 (11:11→16:42)
[2023-02-07 11:52] LABS: Lyme DNA PCR CSF or Synovial Not Detected (Not Detected); Lyme DNA Source CSF
[2023-02-08] MEDS: LORazepam 2 MG in SYRINGE 1 ML IV PRN (00:15)
[2023-02-08] MEDS: MoRPHine SULFATE 2 MG/ML CARP IV PRN ×2 (03:46→08:34)
[2023-02-08] MEDS: TIMOLOL MALEATE 0.5% OP SOLN 5 ML BTL OP SCH (08:38)
[2023-02-08] MEDS: LORazepam 0.5 MG in SYRINGE 0.25 ML IV PRN ×2 (09:13→15:03)
--- NOTE | 2023-02-08 13:42 | Hospitalist Progress Note ---
Date of Service February 08, 2023 Assessment & Plan (1) Seizure-like activity: Plan: Ms. Epperson is a 77 year old woman with H/O SIADH, CAD, s/p CABG, hypertension GERD, primary open-angle glaucoma, iron deficiency anemia, depression, history of DVT, with recent prolonged hospital stay in September and October 2022 with perforated gastric ulcer and had diagnostic laparoscopy and repair of gastric ulcer on September 17, 2022. She was treated with IV antibiotics and underwent right abdominal pigtail catheter on September 28, 2022 by IR and was removed after minimal output. Patient again had IR drain placement in right upper abdominal October 11, 2022 per surgery recommendation and subsequently was taken out. At the time she was also in ICU for aspiration pneumonia and severe sepsis septic shock. She also had G-tube placement. Patient was discharged to [facility] group home. Patient currently eats but she also gets 50 mill per hour for 12 hours of tube feeds. Currently not doing much in PT. Patient was brought in from group home on 02/03 because of seizure-like activity around 7:30 PM. The seizure like activity was reportedly witnessed. Imaging on admission was unremarkable. Labs unrevealing. To date, work up has yet to yield precise cause for acute decline. Despite efforts, breakthrough seizures continued, and patient's clinical status continued to decline prompting transition to comfort measures 02/07/2023. #Seizure-like activity, unclear etiology #Acute metabolic encephalopathy on chronic cognitive impairment -Infectious work up negative to date, LP/CSF r/o FISH AND WILDLIFE BIOLOGIST infectious, Abnormal urinalysis--ruled out UTI DD:? Polypharmacy, secondary to influenza Mental status waxes and wanes at baseline as per patient's family. --CT head:Mild progressive left mastoid effusion. Stable age-related findings. No acute infarct, bleed, or acute intracranial abnormality. --EEG:This is an abnormal routine EEG due to generalized background slowing suggestive of a non specific encephalopathy. No epileptiform activity is seen. --MRI Brain:Moderate age-related findings. Stable sinus disease and left mastoid effusion, may be chronic. No acute infarct, bleed, or acute intracranial abnormality. Mild to moderate motion artifact. --Toxicology positive for marijuana (due to Marinol) --Chronic mastoid effusion also seen on prior imaging --Lactic acidosis resolved with IV fluids --Blood culture negative to date -- urine cultures negative to date --Discontinue antibiotics on 02/07/2023 given no infectious source --Discontinued antiepileptics given transition to comfort measures --Per prior hospitalist conversation/documentation on 02/07/2023: "Patient's daughter aware of critical condition of the patient and understands and agrees with current management. Clinically no improvement. Had seizure like episode today as well. Offered option for tertiary care facility transfer. Patient remains obtunded. Given no meaningful recovery, patient's daughter prefers patient to be tra nsition to comfort measures only. Patient daughter understands and agrees with comfort measures." #Acute respiratory failure with hypoxia and hypercarbia #Influenza A infection--POA Chest x-ray suggestive of pulmonary vascular congestion, findings suggestive of developing pneumonia resolved, on room air #Mildly elevated troponin Likely demand ischemia EKG showed no signs of acute ischemia #Iron deficiency anemia No obvious source of bleed currently S/P 2 units PRBCs Hb 6.6>>8.1>10.6>9.3 comfort measures #Chronic rib fractures #Nonunited fracture of left pubic symphysis #Probable healing left sacral fracture Incidental findings on imaging studies comfort measures #CAL on CKD II-III Cr 2.2>2.0>1.8>2.5 Avoid nephrotoxic agents as able Monitor renal function Received IV fluids Appreciate nephrology input Renal function worsening comfort measures no further labs to be obtained #Chronic hyponatremia H/O SIADH Sodium 133>135>136>137>140 Comfort intake, no further sodium monitoring #CAD s/p CABG discontinued per comfort protocol #Iron deficiency anemia discontinued per comfort protocol #Depression discontinued per comfort protocol Nutrition per comfort protocol DVT Px SCDs Re: significant anemia, concern for GI bleed CODE STATUS DNR/DNI Disposition Very Poor prognosis Currently on comfort measures only as requested by family Admission and Anticipated Discharge Date Admission Date: February 03, 2023 Subjective Unresponsive Review of Systems Review of Systems: Unobtainable due to reduced consciousness Physical Exam Constitutional: eyes fixed open, generally tremulous Respiratory: tachypneic, coarse Cardiovascular: RRR, no murmur, no edema Gastrointestinal (Abdomen): gtube Skin: general pallor with cyanotic hue Results & Data Results & Data Vital Signs (Past 12 Hours) Vital Signs O2 Del Method 02/08/23 08:55 Room Air Laboratory Results No labs for review Medications Administered Home Medications Medication Instructions Recorded Confirmed Last Taken acetaminophen 325 mg tablet 650 mg PO Q6 PRN Fever Or Pain 02/02/23 02/02/23 Unknown (Tylenol) atorvastatin 80 mg tablet 80 mg PO HS 02/02/23 02/02/23 Unknown calcium carbonate 1,000 mg tablet 1,250 mg PO DAILY 02/02/23 02/02/23 Unknown cholecalciferol (vitamin D3) 125 125 mcg PO DAILY 02/02/23 02/02/23 Unknown mcg (5,000 unit) tablet (Vitamin D3) dronabinol 5 mg capsule 5 mg PO DAILY 02/02/23 02/02/23 Unknown ferrous sulfate 325 mg (65 mg 325 mg PO DAILY 02/02/23 02/02/23 Unknown iron) tablet folic acid 1 mg tablet 1 mg PO DAILY 02/02/23 02/02/23 Unknown latanoprost 0.005 % eye drops 1 drp OPB HS 02/02/23 02/02/23 Unknown magnesium chloride 64 mg 64 mg PO DAILY 02/02/23 02/02/23 Unknown (magnesium chloride) tablet melatonin 3 mg tablet 3 mg PO HS 02/02/23 02/02/23 Unknown metoclopramide HCl 5 mg tablet 5 mg PO TID 02/02/23 02/02/23 Unknown metoprolol tartrate 25 mg tablet 25 mg PO Q12 02/02/23 02/02/23 Unknown mirtazapine 15 mg tablet 15 mg PO HS 02/02/23 02/02/23 Unknown nitroglycerin 0.4 mg sublingual 0.4 mg sublingual DIRECTED PRN 02/02/23 02/02/23 Unknown tablet (Nitrostat) Chest Pain ondansetron HCl 4 mg tablet 4 mg PO Q4 PRN Nausea 02/02/23 02/02/23 Unknown pantoprazole 40 mg tablet,delayed 40 mg PO BID 02/02/23 02/02/23 Unknown release potassium chloride 10 mEq 10 meq PO DAILY 02/02/23 02/02/23 Unknown tablet,extended release sertraline 50 mg tablet (Zoloft) 50 mg PO DAILY 02/02/23 02/02/23 Unknown timolol maleate 0.5 % eye drops 1 drp OPB DAILY 02/02/23 02/02/23 Unknown Active Medications Generic Name Dose Route Start Last Admin Trade Name Freq PRN Reason Stop Dose Admin Atropine Sulfate 4 drops 02/07/23 09:51 02/07/23 10:52 Atropine Sulfate 1% Op Soln 5 Ml Btl SL 03/09/23 09:50 4 drops Q1H PRN Administration Secretions or pulm congestion Glycopyrrolate 0.2 mg 02/07/23 09:51 02/07/23 10:52 Glycopyrrolate 0.2 Mg/Ml Vial IV 03/09/23 09:50 0.2 mg Q4H PRN Administration Secretions or Pulm Congestion Lorazepam 2 mg/ Syringe 2 mls @ 2 mls/min 02/03/23 02:28 02/08/23 00:15 IV 03/05/23 02:27 2 mls/min Q2H PRN Administration Breakthrough Seizures Lorazepam 0.5 mg/ Syringe 0.5 mls @ 2 mls/min 02/07/23 09:51 02/08/23 09:13 IV 03/09/23 09:50 2 mls/min Q4H PRN Administration Anxiety/Agitation Protocol Morphine Sulfate 2 mg 02/07/23 09:51 02/08/23 08:34 Morphine Sulfate 2 Mg/Ml Carp IV 02/21/23 09:50 2 mg Q4H PRN Administration Pain or Respiratory Distress Timolol Maleate 1 drops 02/03/23 09:00 02/08/23 08:38 Timolol Maleate 0.5% Op Soln 5 Ml Btl OP 03/05/23 08:59 1 drops DAILY SHELDON Administration
[2023-02-08] MEDS: MoRPHine SULFATE 10 MG/0.5 ML UDP PO PRN (14:30)
[2023-02-08 18:12] LABS: Cryptococcal Antigen Not Detected (Not Detected); EBV DNA Quant PCR Not Detected copies/mL; EBV DNA Quant Source CSF; Source CSF
[2023-02-08 18:43] LABS: Lyme IgG Band Pattern CSF DNR; Lyme IgG CSF NO BANDS DETECTED; Lyme IgM Band Pattern CSF DNR; Lyme IgM CSF NO BANDS DETECTED
[2023-02-09] MEDS: LORazepam 2 MG in SYRINGE 1 ML IV PRN (01:48)
[2023-02-09] MEDS: MoRPHine SULFATE 2 MG/ML CARP IV PRN (06:27)
[2023-02-09] MEDS: GLYCOPYRROLATE 0.2 MG/ML VIAL IV PRN (06:27)
[2023-02-09] MEDS: TIMOLOL MALEATE 0.5% OP SOLN 5 ML BTL OP SCH (07:59)
[2023-02-09] MEDS: MoRPHine SULFATE 10 MG/0.5 ML UDP PO PRN (09:46)
--- NOTE | 2023-02-09 14:44 | Communication Note ---
Date of Service: February 09, 2023 Exam I was notified by nursing at around 1355 that the patient appeared to stop breathing. I came to bedside. I examined the patient and there was no pupillary response to light. I did not observe spontaneous breathing or appreciate heart sounds on auscultation. There was no palpable radial pulse. The patient did not respond to nail bed stimuli. Patient was pronounced at 1400 on 02/09/2023.
--- NOTE | 2023-02-09 14:53 | Hospitalist Progress Note ---
Date of Service February 09, 2023 Assessment & Plan (1) Seizure-like activity: Plan: Ms. Epperson is a 77 year old woman with H/O SIADH, CAD, s/p CABG, hypertension GERD, primary open-angle glaucoma, iron deficiency anemia, depression, history of DVT, with recent prolonged hospital stay in September and October 2022 with perforated gastric ulcer and had diagnostic laparoscopy and repair of gastric ulcer on September 17, 2022. She was treated with IV antibiotics and underwent right abdominal pigtail catheter on September 28, 2022 by IR and was removed after minimal output. Patient again had IR drain placement in right upper abdominal October 11, 2022 per surgery recommendation and subsequently was taken out. At the time she was also in ICU for aspiration pneumonia and severe sepsis septic shock. She also had G-tube placement. Patient was discharged to [facility] halfway. Patient currently eats but she also gets 50 mill per hour for 12 hours of tube feeds. Currently not doing much in PT. Patient was brought in from halfway on 02/03 because of seizure-like activity around 7:30 PM. The seizure like activity was reportedly witnessed. Imaging on admission was unremarkable. Labs unrevealing. To date, work up has yet to yield precise cause for acute decline. Despite efforts, breakthrough seizures continued, and patient's clinical status continued to decline prompting transition to comfort measures 02/07/2023. Patient pronounced at 1400. #Seizure-like activity, unclear etiology #Acute metabolic encephalopathy on chronic cognitive impairment -Infectious work up negative to date, LP/CSF r/o INSTITUTIONAL CUSTODIAN infectious, Abnormal urinalysis--ruled out UTI DD:? Polypharmacy, secondary to influenza Mental status waxes and wanes at baseline as per patient's family. --CT head:Mild progressive left mastoid effusion. Stable age-related findings. No acute infarct, bleed, or acute intracranial abnormality. --EEG:This is an abnormal routine EEG due to generalized background slowing suggestive of a non specific encephalopathy. No epileptiform activity is seen. --MRI Brain:Moderate age-related findings. Stable sinus disease and left mastoid effusion, may be chronic. No acute infarct, bleed, or acute intracranial abnormality. Mild to moderate motion artifact. --Toxicology positive for marijuana (due to Marinol) --Chronic mastoid effusion also seen on prior imaging --Lactic acidosis resolved with IV fluids --Blood culture negative to date -- urine cultures negative to date --Discontinue antibiotics on 02/07/2023 given no infectious source --Discontinued antiepileptics given transition to comfort measures --Per prior hospitalist conversation/documentation on 02/07/2023: "Patient's daughter aware of critical condition of the patient and understands and agrees with current management. Clinically no improvement. Had seizure like episode today as well. Offered option for tertiary care facility transfer. Patient remains obtunded. Given no meaningful recovery, patient's daughter prefers patient to be transition to comfort measures only. Patient daughter understands and agrees with comfort measures." #Acute respiratory failure with hypoxia and hypercarbia #Influenza A infection--POA Chest x-ray suggestive of pulmonary vascular congestion, findings suggestive of developing pneumonia resolved, on room air #Mildly elevated troponin Likely demand ischemia EKG showed no signs of acute ischemia #Iron deficiency anemia No obvious source of bleed currently S/P 2 units PRBCs Hb 6.6>>8.1>10.6>9.3 comfort measures #Chronic rib fractures #Nonunited fracture of left pubic symphysis #Probable healing left sacral fracture Incidental findings on imaging studies comfort measures #CAL on CKD II-III Cr 2.2>2.0>1.8>2.5 Avoid nephrotoxic agents as able Monitor renal function Received IV fluids Appreciate nephrology input Renal function worsening comfort measures no further labs to be obtained #Chronic hyponatremia H/O SIADH Sodium 133>135>136>137>140 Comfort intake, no further sodium monitoring #CAD s/p CABG discontinued per comfort protocol #Iron deficiency anemia discontinued per comfort protocol #Depression discontinued per comfort protocol Nutrition per comfort protocol DVT Px SCDs Re: significant anemia, concern for GI bleed CODE STATUS DNR/DNI Disposition Very Poor prognosis Currently on comfort measures only as requested by family: 1400. Admission and Anticipated Discharge Date Admission Date: February 03, 2023 Subjective Patient initially evaluated at bedside this am with agonal like breathing but subsequently passed shortly thereafter Physical Exam Constitutional: gaunt, general pallor, deep, irregular breathing Respiratory: poor movement Results & Data Results & Data Vital Signs (Past 12 Hours) Vital Signs O2 Del Method 02/09/23 08:00 Room Air
--- NOTE | 2023-02-10 17:34 | Discharge Summary ---
Discharge Summary Date of Service February 10, 2023 Notes For Next Care Provider Medication Changes From Visit Admission HPI Per Admitting Provider 77-year-old male with past med history significant for SIADH, CAD, s/p CABG, hypertension GERD, primary open-angle glaucoma, iron deficiency anemia, depression, history of DVT, patient had prolonged hospital stay in September and October 2022 with perforated gastric ulcer and had diagnostic laparoscopy and repair of gastric ulcer on September 17, 2022. Treated with IV antibiotics. And also she underwent right abdominal pigtail catheter on September 28, 2022 by IR and was removed after minimal output. Patient again had IR drain placement in right upper abdominal October 11, 2022 per surgery recommendation and subsequently was taken out. At the time she was also in ICU for aspiration pneumonia and severe sepsis septic shock.She also had G-tube placement. Patient was discharged to [facility]. Patient currently eats but she also gets 50 mill per hour for 12 hours of tube feeds. Currently not doing much in PT. Patient was brought in from [facility] because of seizure-like activity around 7:30 PM. She witnessed seizure at [facility]. Currently seems postictal. Imaging studies are okay in the ER. Sodium 133, potassium 3.2, creatinine 2.2 and lactic acid came at 5.9 and calcium 11.4. Patient currently very drowsy. Grimaces with painful stimuli. Moves extremities on painful stimuli. Hemodynamically stable. Confirmed with the daughter the patient is DNR. As per [facility] no recent fevers. No recent cough. As per [facility] had 1 episode of vomiting yesterday. No diarrhea. Otherwise she is alert and oriented as per [facility]. As per daughter sometimes her cognitive s tatus is not a great. Past medical history. As mentioned above Past surgical history. Bilateral breast biopsy. Bilateral cataract surgery. Tooth abscess removal and drainage. Hiatal hernia repair. Injection of lumbosacral spine. Cervical laminectomy. Lumbar laminectomy. Laparoscopic cholecystectomy with cholangiography. Sacroiliac joint injection. Laparoscopic ruptured gastric ulcer repair. Social history. Currently at her side. Former smoker. Alcohol 1 glass of wine a day. No drug use. Family history. No family history on file Principal Dx & Hospital Course #1 = Principal Diagnosis (1) Seizure-like activity: Ms. Epperson is a 77 year old woman with H/O SIADH, CAD, s/p CABG, hypertension GERD, primary open-angle glaucoma, iron deficiency anemia, depression, history of DVT, with recent prolonged hospital stay in September and October 2022 with perforated gastric ulcer and had diagnostic laparoscopy and repair of gastric ulcer on September 17, 2022. She was treated with IV antibiotics and underwent right abdominal pigtail catheter on September 28, 2022 by IR and was removed after minimal output. Patient again had IR drain placement in right upper abdominal October 11, 2022 per surgery recommendation and subsequently was taken out. At the time she was also in ICU for aspiration pneumonia and severe sepsis septic shock. She also had G-tube placement. Patient was discharged to [facility]. Patient currently eats but she also gets 50 mill per hour for 12 hours of tube feeds. Currently not doing much in PT. Patient was brought in from [facility] on 02/03 because of seizure-like activity around 7:30 PM. The seizure like activity was reportedly witnessed. Imaging on admission was unremarkable. Labs unrevealing. To date, work up has yet to yield precise cause for acute decline. Despite efforts, breakthrough seizures continued, and patient's clinical status cont inued to decline prompting transition to comfort measures 02/07/2023. Patient pronounced at 1400. #Seizure-like activity, unclear etiology #Acute metabolic encephalopathy on chronic cognitive impairment -Infectious work up negative to date, LP/CSF r/o STAFF AIR DEFENSE OFFICER infectious, Abnormal urinalysis--ruled out UTI DD:? Polypharmacy, secondary to influenza Mental status waxes and wanes at baseline as per patient's family. --CT head:Mild progressive left mastoid effusion. Stable age-related findings. No acute infarct, bleed, or acute intracranial abnormality. --EEG:This is an abnormal routine EEG due to generalized background slowing suggestive of a non specific encephalopathy. No epileptiform activity is seen. --MRI Brain:Moderate age-related findings. Stable sinus disease and left mastoid effusion, may be chronic. No acute infarct, bleed, or acute intracranial abnormality. Mild to moderate motion artifact. --Toxicology positive for marijuana (due to Marinol) --Chronic mastoid effusion also seen on prior imaging --Lactic acidosis resolved with IV fluids --Blood culture negative to date -- urine cultures negative to date --Discontinue antibiotics on 02/07/2023 given no infectious source --Discontinued antiepileptics given transition to comfort measures --Per prior hospitalist conversation/documentation on 02/07/2023: "Patient's daughter aware of critical condition of the patient and understands and agrees with current management. Clinically no improvement. Had seizure like episode today as well. Offered option for tertiary care facility transfer. Patient remains obtunded. Given no meaningful recovery, patient's daughter prefers patient to be transition to comfort measures only. Patient daughter understands and agrees with comfort measures." #Acute respiratory failure with hypoxia and hypercarbia #Influenza A infection--POA Chest x-ray suggestive of pulmonary vascular congestion, findings suggestive of developing pneumonia resolved, on room air #Mildly elevated troponin Likely demand ischemia EKG showed no signs of acute ischemia #Iron deficiency anemia No obvious source of bleed currently S/P 2 units PRBCs Hb 6.6>>8.1>10.6>9.3 comfort measures #Chronic rib fractures #Nonunited fracture of left pubic symphysis #Probable healing left sacral fracture Incidental findings on imaging studies comfort measures #CAL on CKD II-III Cr 2.2>2.0>1.8>2.5 Avoid nephrotoxic agents as able Monitor renal function Received IV fluids Appreciate nephrology input Renal function worsening comfort measures no further labs to be obtained #Chronic hyponatremia H/O SIADH Sodium 133>135>136>137>140 Comfort intake, no further sodium monitoring #CAD s/p CABG discontinued per comfort protocol #Iron deficiency anemia discontinued per comfort protocol #Depression discontinued per comfort protocol Nutrition per comfort protocol DVT Px SCDs Re: significant anemia, concern for GI bleed CODE STATUS DNR/DNI Disposition Very Poor prognosis Currently on comfort measures only as requested by family: 1400. Discharge Exam Constitutional unresponsive Respiratory absent Cardiovascular absent Neurologic no reflexes Updated Medication List Medication Instructions Recorded Confirmed Type acetaminophen 325 mg tablet 650 mg PO Q6 PRN Fever Or Pain 02/02/23 02/02/23 History (Tylenol) atorvastatin 80 mg tablet 80 mg PO HS 02/02/23 02/02/23 History calcium carbonate 1,000 mg tablet 1,250 mg PO DAILY 02/02/23 02/02/23 History cholecalciferol (vitamin D3) 125 125 mcg PO DAILY 02/02/23 02/02/23 History mcg (5,000 unit) tablet (Vitamin D3) dronabinol 5 mg capsule 5 mg PO DAILY 02/02/23 02/02/23 History ferrous sulfate 325 mg (65 mg 325 mg PO DAILY 02/02/23 02/02/23 History iron) tablet folic acid 1 mg tablet 1 mg PO DAILY 02/02/23 02/02/23 History latanoprost 0.005 % eye drops 1 drp OPB HS 02/02/23 02/02/23 History magnesium chloride 64 mg 64 mg PO DAILY 02/02/23 02/02/23 History (magnesium chloride) tablet melatonin 3 mg tablet 3 mg PO HS 02/02/23 02/02/23 History metoclopramide HCl 5 mg tablet 5 mg PO TID 02/02/23 02/02/23 History metoprolol tartrate 25 mg tablet 25 mg PO Q12 02/02/23 02/02/23 History mirtazapine 15 mg tablet 15 mg PO HS 02/02/23 02/02/23 History nitroglycerin 0.4 mg sublingual 0.4 mg sublingual DIRECTED PRN 02/02/23 02/02/23 History tablet (Nitrostat) Chest Pain ondansetron HCl 4 mg tablet 4 mg PO Q4 PRN Nausea 02/02/23 02/02/23 History pantoprazole 40 mg tablet,delayed 40 mg PO BID 02/02/23 02/02/23 History release potassium chloride 10 mEq 10 meq PO DAILY 02/02/23 02/02/23 History tablet,extended release sertraline 50 mg tablet (Zoloft) 50 mg PO DAILY 02/02/23 02/02/23 History timolol maleate 0.5 % eye drops 1 drp OPB DAILY 02/02/23 02/02/23 History Hospital Stay Data Consultations 02/03/23 00:15 ED Decision to Admit Stat 02/03/23 08:00 Consult Gastroenterology Routine Consult Neurology Routine 02/04/23 20:25 Consult Pulmonology Routine 02/05/23 08:58 Consult Nephrology Routine Diagnostic Imagining Performed 02/02/23 21:43 CT head/brain wo con Stat 02/02/23 21:44 CT abd pelvis wo con Stat CT chest diagnostic wo con Stat 02/03/23 06:00 CT abd pelvis wo con Stat 02/03/23 17:28 MRI Brain [MR brain wo con] Urgent 02/05/23 11:08 CT head/brain wo con Urgent Total Time Total Time Spent Total Time Spent (In Minutes): 55
== END 2023-02-09 15:43 | disposition expired | DRG 100 ==
LOC: ED 21:37 → EDINP 02-03 01:16 → SUATTDRO 02-03 01:16 → EDINP 02-03 02:42 → 2S 02-04 16:39 → 3E 02-07 17:32